=== PATIENT | male | born 1935 | race Caucasian/White ===

== ENCOUNTER 2016-06-08 09:03 | Emergency (ER) | payer OTHER ==
[2016-06-08 09:11] VITALS: BP 145/72; PULSE 92; TEMP 98.1; BMI 31.3
[2016-06-08] MEDS ORDERED: COLCHICINE 0.6 MG TABLET (FP) PO ONE ×2 (10:09→11:16)
[2016-06-08] MEDS ORDERED: COLCHICINE 0.6 MG TABLET (FP) ONE ×3 (10:18→11:32)
[2016-06-08] MEDS ORDERED: OXYCODONE/APAP 5/325MG COMBO TABLET ONE (10:21)
[2016-06-08] MEDS ORDERED: OXYCODONE/APAP 5/325MG COMBO TABLET PO ONE (10:24)
[2016-06-08 10:34] LABS: BASOPHIL 0.5 % (0-2.0); EOSINOPHIL 2.1 % (0-4.5); MCH 30.4 pg (25.7-33.7); MCHC 33.4 g/dl (32.0-35.9); MEAN PLT VOLUME 8.6 fl (7.5-11.1); NEUTROPHILS 80.8 % (42.8-82.8); PLATELET COUNT 173 K/MM3 (134-434); RDW 14.9 % (11.9-15.9)
--- NOTE | 2016-06-08 10:47 | PDOC ---
History of Present Illness - General Chief Complaint: Pain Stated Complaint: LT FOOT PAIN Time Seen by Provider: 06/08/16 09:30 History Source: Patient, Spouse - History of Present Illness Occurred: reports: other Severity: Yes: severe Lower Extremity Pain Location: left: foot, ankle Past History - Past Medical History Allergies/Adverse Reactions: Allergies Allergy/AdvReac Type Severity Reaction Status Date / Time erythromycin base Allergy Severe Difficulty Verified 06/08/16 09:10 Breathing triamcinolone Allergy Intermediate Rash Verified 06/08/16 09:10 naproxen [From Naprosyn] Allergy Verified 06/08/16 09:10 Home Medications: Ambulatory Orders Allopurinol [Zyloprim -] 100 mg PO DAILY 05/20/14 Levothyroxine [Synthroid -] 50 mcg PO DAILY 05/20/14 Quinapril HCl [Accupril] 40 mg PO DAILY 05/20/14 Rosuvastatin Calcium [Crestor] 20 mg PO DAILY 05/20/14 Silodosin [Rapaflo] 80 mg PO DAILY 05/20/14 Aspirin [ASA -] 0.5 tab PO DAILY 07/22/14 Beta-Carotene(A) W-C and E/Min [Ocuvite (Nf) -] 1 tab PO DAILY 07/22/14 Multivitamins [Tab-A-Vit -] 1 tab PO DAILY 07/22/14 Ondansetron [Zofran Odt -] 4 mg SL TID #6 od.tablet 12/17/14 Acetaminophen [Tylenol] 650 mg PO Q6H #30 tablet 06/08/16 Oxycodone HCl/Acetaminophen [Percocet 5-325 mg Tablet] 1 tab PO Q4H #20 tablet MDD 4 06/08/16 HTN: Yes Hypercholesterolemia: Yes Suicide Attempt (Hx): No Thyroid Disease: Yes (HYPO) - Surgical History Abdominal Surgery: Yes Appendectomy: Yes - Immunization History Immunization Up to Date: Yes - Psycho/Social/Smoking Cessation Hx Anxiety: No Suicidal Ideation: No Smoking History: Never smoked Have you smoked in the past 12 months: No If you are a former smoker, when did you quit?: 1974 Hx Alcohol Use: No Drug/Substance Use Hx: No Substance Use Type: None Review of Systems - Review of Systems Constitutional: No: Chills, Fever, Malaise Musculoskeletal: Yes: Joint Pain, Joint Swelling *Physical Exam - Vital Signs Last Vital Signs Temp Pulse Resp BP Pulse Ox 98.1 F 92 H 20 145/72 97 06/08/16 09:06 06/08/16 09:06 06/08/16 09:06 06/08/16 09:06 06/08/16 09:06 - Physical Exam General Appearance: Yes: Appropriately Dressed, Mild Distress HEENT: positive: Normal Voice Neck: positive: Supple Respiratory/Chest: negative: Respiratory Distress Extremity: positive: Swelling (L foot ankle w/ moderate swelling w/ minimal ertyhema w/ increased warmth to lateral L foot, sig ttp to foot difusely, pedal pulses intact) Integumentary: positive: Dry, Warm Neurologic: positive: Fully Oriented, Alert, Normal Mood/Affect ED Treatment Course - LABORATORY CBC & Chemistry Diagram: 06/08/16 10:15 - ADDITIONAL ORDERS Additional order review: 06/08/16 10:15 RBC 4.54 MCV 91.0 MCHC 33.4 RDW 14.9 MPV 8.6 Neutrophils % 80.8 Lymphocytes % 9.6 D Monocytes % 7.0 Eosinophils % 2.1 D Basophils % 0.5 - RADIOLOGY Radiology Studies Ordered: Category Date Time Status FOOT-LEFT [RAD] Stat Radiology 06/08/16 10:25 Ordered - Medications Given in the ED: ED Medications Discontinued Medications Generic Name Dose Route Start Last Admin Trade Name Freq PRN Reason Stop Dose Admin Colchicine 1.2 mg 06/08/16 10:09 06/08/16 10:25 Colcrys - PO 06/08/16 10:10 1.2 mg ONCE ONE Administration Oxycodone/Acetaminophen 1 combo 06/08/16 10:24 06/08/16 10:25 Percocet 5/325 - PO 06/08/16 10:25 1 combo ONCE ONE Administration Medical Decision Making - Medical Decision Making 06/08/16 10:51 81 yo M, h/o HLD, hypothyroid, gout, here w/ L foot/ankle pain and swelling x 5 days. Able to ambulate but painful. No f/c or malaise. Denies any trauma. States he had gout to b/l ankle many years ago, not currently on meds for same See exam Atraumatic L foot/ankle pain/swelling/erythema Gout vs cellulitis vs other non-specific inflammatory pathology, i.e arthritis, low suspicion for septic joint at this time -pain control (allergic to NSAIDs) -colchicine -XR -labs -reassess 06/08/16 11:21 Mild elevation in inflammatory markers and uric acid. XR neg for acute pathology. Pt improved w/ meds in ED. Will discharge w/ rx for small amount of percocet as allergic to NSAIDs and unlikely to benefit from colchicine given duration of sxs. Will hold off on abx given low suspicion of infection at this. Pt to follow up with PMD this week. Reasons to return d/w pt. Given cane and ALISHA wrap at discharge *DC/Admit/Observation/Transfer Diagnosis at time of Disposition: Foot pain Qualifiers: Laterality: left Qualified Code(s): M79.672 - Pain in left foot - Discharge Dispostion Disposition: HOME Condition at time of disposition: Improved - Prescriptions Prescriptions: Oxycodone HCl/Acetaminophen [Percocet 5-325 mg Tablet] 1 tab PO Q4H #20 tablet MDD 4 Acetaminophen [Tylenol] 650 mg PO Q6H #30 tablet - Patient Instructions Printed Discharge Instructions: Gout Additional Instructions: Please take medications as directed and follow with your PMD next week. Return for worsening of symptoms
[2016-06-08 11:01] LABS: C-REACTIVE PROTEIN 2.3 MG/DL (0.00-0.3); URIC ACID 8.9 mg/dL (2.6-7.2)
== END 2016-06-08 11:44 | disposition home or self-care (01) ==
LOC: JERFT 09:03
DX: M10.9 Gout, unspecified (principal); I10 Essential (primary) hypertension; E78.00 Pure hypercholesterolemia, unspecified; E03.9 Hypothyroidism, unspecified
CPT/HCPCS: 36415; 73630-TC-LT; 84550; 85025; 85651; 86140; 99281-25

== ENCOUNTER 2018-02-11 18:46 | Emergency (ER) | payer OTHER ==
--- NOTE | 2018-02-11 19:07 | PDOC ---
Rapid Medical Evaluation Chief Complaint: Headache Time Seen by Provider: 02/11/18 19:03 Medical Evaluation: Allergies Allergy/AdvReac Type Severity Reaction Status Date / Time erythromycin base Allergy Severe Difficulty Verified 02/11/18 19:01 Breathing triamcinolone Allergy Intermediate Rash Verified 02/11/18 19:01 naproxen [From Naprosyn] Allergy Verified 02/11/18 19:01 02/11/18 19:03 CC: FRIEND/Insomnia HPI: Pt is an 83 YO male who states that he has had his license pulled due to diagnosis of macular degeneration and over the past 1 day he has had left sided FRIEND. Pt according to is anxious. Pt denies this being the worst FRIEND of his life and denies a thunderclap sensation prior to its initiation. I have performed a brief in- person evaluation of this patient. Pertinent Physical Findings: Skin: Clear Lungs: Clear Heart: RRR Neuro: Alert, smile is symmetric. Psych: Appropriate affect The patient will proceed to: Main ED for further evaluation. Discharge Disposition - Diagnosis Headache Qualifiers: Headache type: unspecified Headache chronicity pattern: acute headache Intractability: not intractable Qualified Code(s): R51 - Headache - Referrals - Patient Instructions - Post Discharge Activity
[2018-02-11 19:09] VITALS: BP 116/58; PULSE 62; TEMP 98.1; BMI 29.8
[2018-02-11] MEDS ORDERED: ACETAMINOPHEN 325 MG TABLET (FP) PO ONE (20:01)
--- NOTE | 2018-02-11 20:26 | PDOC ---
Attending Attestation - Resident Resident Name: Mino Lei - ED Attending Attestation I have performed the following: I have examined & evaluated the patient, The case was reviewed & discussed with the resident, I agree w/resident's findings & plan, Exceptions are as noted - Medical Decision Making 02/11/18 20:26 I, Dr. Myra Barnhart, DO, attest that this document has been prepared under my direction and personally reviewed by me in its entirety. I further attest, that it accurately reflects all work, treatment, procedures and medical decision -making performed by me. 02/11/18 21:43 a/p: 83yo male with 3 days of duarte -recently dx with worsening macular degeneration with an appt thursday with the yard specialist -recently had his drivers license taken -has not tried meds at home -no trauma -no home meds tried at home -will send labs, head ct -will medicate with tylenol -neuro intact 02/11/18 21:[address] without acute findings duarte resolved with tylenol labs reviewed - cr at baseline stable for d/c to home <Myra Barnhart - Last Filed: 02/11/18 21:43> - HPI HPI: 02/11/18 21:51 The patient is a 83 year old male with a significant past medical history of HTN , hypothyroid, and GOUT who presents to the ED with complaints of a headache for 2 days. Patient reports a non radiating left sided frontal headache that waxes and wanes. Patient was recently diagnosed with macular degeneration in his left eye and is following up with ophthalmology. Denies fever or chills. Denies dizziness. Denies chest pain or shortness of breath. Denies any other symptoms. Documentation prepared by Anselmo Rowe, acting as diploma medical assistant for Myra Barnhart DO - Physicial Exam PE: 02/11/18 21:51 Constitutional: Awake, alert, oriented. No acute distress. Head: Normocephalic. Atraumatic Eyes: PERRL. EOMI. Conjunctivae are not pale. ENT: Mucous membranes are moist and intact. Posterior pharynx without exudates or erythema. Uvula midline. Neck: Supple. Full ROM. No lymphadenopathy. Cardiovascular: + Systolic ejection murmur Regular rate. Regular rhythm. Distal pulses are 2+ and symmetric. Pulmonary/Chest: No evidence of respiratory distress. Clear to auscultation bilaterally No wheezing, rales or rhonchi. Abdominal: + Obese abdomen. Soft. There is no tenderness. No rebound, guarding or rigidity. No organomegaly. No palpable masses. Good bowel sounds. Back: No CVA tenderness. Musculoskeletal: No edema. No cyanosis. No clubbing. Full range of motion in all extremities. Nocalf tenderness. Radial/pedal pulses are intact and 2+ bilaterally Skin: + First degree burn to umbilicus that is healing. Skin is warm and dry. No petechiae. No purpura. Neurological: Alert and oriented to person, place, and time. Cranial nerves II -XII are grossly intact. Normal speech. Strength is grossly symmetric. No sensory deficits. Psychiatric: Good eye contact. Normal interaction, affect and behavior. <Anselmo Rowe - Last Filed: 02/11/18 21:52>
[2018-02-11 20:52] LABS: HEMATOCRIT 39.6 % (35.4-49); HEMOGLOBIN 13.2 GM/dL (11.7-16.9); MCHC 33.4 g/dl (32.0-35.9); MEAN CELL VOLUME 92.8 fl (80-96); MEAN PLT VOLUME 8.6 fl (7.5-11.1); PLATELET COUNT 176 K/MM3 (134-434); RBC 4.27 M/mm3 (4.00-5.60); RDW 15.9 % (11.9-15.9)
[2018-02-11] MEDS ORDERED: METOCLOPRAMIDE HCL 10 MG TABLET (FP) PO ONE (20:54)
--- NOTE | 2018-02-11 20:54 | PDOC ---
History of Present Illness - General Chief Complaint: Headache Stated Complaint: HEADACHE/EYE PROBLEM Time Seen by Provider: 02/11/18 19:03 History Source: Patient - History of Present Illness Initial Comments: The patient is an 83M w/ a history of HTN, hypothyroid, and gout who presents for evaluation of a FRIEND. The patient reports that the FRIEND is L/frontal, had gradual onset 2d ago, waxes/wanes, does not radiate, and is not associated with any symptoms that he noticed. The patient reports that he was diagnosed with macular degeneration in his left eye and has an drafting technician appointment scheduled for Thursday for intravitreal injection. He reports that he may have had a FRIEND like this before. He has not tried taking anything for the pain. He denies a history of CO or stroke. He denies recent fever/chills, dizziness, chest pain, SOB, N/V/C/D, changes in sensation, or weakness 02/11/18 20:55 Past History - Past Medical History Allergies/Adverse Reactions: Allergies Allergy/AdvReac Type Severity Reaction Status Date / Time erythromycin base Allergy Severe Difficulty Verified 02/11/18 19:01 Breathing triamcinolone Allergy Intermediate Rash Verified 02/11/18 19:01 naproxen [From Naprosyn] Allergy Verified 02/11/18 19:01 Home Medications: Ambulatory Orders Allopurinol [Zyloprim -] 100 mg PO DAILY 05/20/14 Levothyroxine [Synthroid -] 50 mcg PO DAILY 05/20/14 Quinapril HCl [Accupril] 40 mg PO DAILY 05/20/14 Rosuvastatin Calcium [Crestor] 20 mg PO DAILY 05/20/14 Silodosin [Rapaflo] 80 mg PO DAILY 05/20/14 Aspirin [ASA -] 0.5 tab PO DAILY 07/22/14 Beta-Carotene(A) W-C and E/Min [Ocuvite (Nf) -] 1 tab PO DAILY 07/22/14 Multivitamins [Tab-A-Vit -] 1 tab PO DAILY 07/22/14 Ondansetron [Zofran Odt -] 4 mg SL TID #6 od.tablet 12/17/14 Acetaminophen [Tylenol] 650 mg PO Q6H #30 tablet 06/08/16 Oxycodone HCl/Acetaminophen [Percocet 5-325 mg Tablet] 1 tab PO Q4H #20 tablet MDD 4 06/08/16 COPD: No HTN: Yes Hypercholesterolemia: Yes Thyroid Disease: Yes (HYPO) - Surgical History Abdominal Surgery: Yes Appendectomy: Yes - Immunization History Immunization Up to Date: Yes - Suicide/Smoking/Psychosocial Hx Smoking History: Never smoked Have you smoked in the past 12 months: No If you are a former smoker, when did you quit?: 1975 Hx Alcohol Use: No Drug/Substance Use Hx: No Substance Use Type: None Review of Systems - Review of Systems Able to Perform ROS?: Yes Comments:: GENERAL/CONSTITUTIONAL: No fever or chills. No weakness HEAD, EYES, EARS, NOSE AND THROAT: No acute change in vision; little vision in R eye, nearly blind in L eye; No ear pain or discharge. No sore throat CARDIOVASCULAR: No chest pain or shortness of breath RESPIRATORY: No cough, wheezing, or hemoptysis GASTROINTESTINAL: No nausea, vomiting, diarrhea or constipation GENITOURINARY: No dysuria, frequency, or change in urination MUSCULOSKELETAL: No joint or muscle swelling or pain. No neck or back pain SKIN: No rash NEUROLOGIC: No vertigo, loss of consciousness, or change in strength/sensation ENDOCRINE: No increased thirst. No abnormal weight change HEMATOLOGIC/LYMPHATIC: No anemia, easy bleeding, or history of blood clots ALLERGIC/IMMUNOLOGIC: No hives or skin allergy 02/11/18 20:59 Is the patient limited Yoruba proficient: No *Physical Exam - Vital Signs Last Vital Signs Temp Pulse Resp BP Pulse Ox 98.1 F 62 18 116/58 L 98 02/11/18 19:02 02/11/18 19:02 02/11/18 19:02 02/11/18 19:02 02/11/18 19:02 - Physical Exam Comments: GENERAL: Awake, alert, and fully oriented, in no acute distress HEAD: No signs of trauma, normocephalic, atraumatic EYES: OS: 20/200 OD: 20/100; PERRL, EOMI, sclera anicteric, conjunctiva clear ENT: Hearing grossly normal, nares patent, oropharynx clear without exudates. Moist mucosa NECK: Normal ROM, supple, no lymphadenopathy LUNGS: No distress, speaks full sentences, clear to auscultation bilaterally HEART:Regular rate and rhythm, systolic murmur appreciated, peripheral pulses normal and equal bilaterally ABDOMEN: Soft, nontender, normoactive bowel sounds. No guarding, no rebound. 2cm x 4cm supraumbilical mixed 1st and 2nd degree burn (that occurred 5d ago) that appears to be not infected EXTREMITIES : Normal inspection, Normal range of motion, no edema. No clubbing or cyanosis NEUROLOGICAL: Cranial nerves II through XII grossly intact. Normal speech, no focal sensorimotor deficits SKIN: Warm, Dry, normal turgor, no rashes or lesions noted 02/11/18 21:00 ED Treatment Course - LABORATORY CBC & Chemistry Diagram: 02/11/18 20:39 02/11/18 20:39 Medical Decision Making - Medical Decision Making The patient is an 83M w/ a history of HTN, hypothyroidism, and gout who presents for evaluation of 2d of FRIEND ED Course CMP, CBC CT head w/o Tylenol 975mg PO once 02/11/18 21:08 No leukocytosis lytes wnl other labs at baseline 02/11/18 21:13 The patient reports symptomatic improvement of his FRIEND CT head w/o evidence of acute bleed or acute pathology Referral given for neurology Counseled patient for OTC Tylenol as directed for pain Return precautions given including nausea/vomiting, fevers, worsening/non- abating symptoms, or any new/concerning symptoms Plan for D/C w/ PCP and neurology follow up Patient is in agreement and verbalized understanding of the plan Dispo: Home 02/11/18 21:48 *DC/Admit/Observation/Transfer Diagnosis at time of Disposition: Headache Qualifiers: Headache type: unspecified Headache chronicity pattern: acute headache Intractability: not intractable Qualified Code(s): R51 - Headache - Discharge Dispostion Disposition: HOME Condition at time of disposition: Stable Decision to Admit order: No - Referrals Referrals: Ruben Reyez MD [Primary Care Provider] - Panchito Garcia DO [Staff Physician] - - Patient Instructions Printed Discharge Instructions: DI for Headache Additional Instructions: You were seen in the Emergency Department for evaluation of a headache. You were evaluated and found not to have an acute bleed on CT scan. Please review the handouts provided at discharge. Please follow up with a neurologist (a referral is in your discharge paperwork). Return to the Emergency Department if you develop fevers, nausea/vomiting, worsening headache, or any new/concerning symptoms - Post Discharge Activity
[2018-02-11 21:17] LABS: ALK PHOS 95 U/L (45-117); ANION GAP 4 MMOL/L (8-16); BILIRUBIN,TOTAL 0.4 mg/dL (0.2-1); BLOOD UREA NITROGEN 59 mg/dL (7-18); CALCIUM 9.4 mg/dL (8.5-10.1); CHLORIDE 111 mmol/L (98-107); CO2 23 mmol/L (21-32); CREATININE 2.2 mg/dL (0.55-1.3); GLUCOSE,RANDOM 102 mg/dL (74-106); POTASSIUM 5.3 mmol/L (3.5-5.1); SGOT/AST 17 U/L (15-37); SGPT/ALT 45 U/L (13-61); SODIUM 138 mmol/L (136-145); TOT PROT 7.6 g/dl (6.4-8.2)
== END 2018-02-11 21:48 | disposition home or self-care (01) ==
LOC: JER 18:46
DX: R51 Headache (principal); I10 Essential (primary) hypertension; E03.9 Hypothyroidism, unspecified; M10.9 Gout, unspecified; H35.30 Unspecified macular degeneration
CPT/HCPCS: 36415; 70450-TC; 80053; 85027; 99281-25

== ENCOUNTER 2018-09-23 18:12 | Observation (INO) | payer OTHER ==
--- NOTE | 2018-09-23 18:27 | PDOC ---
Rapid Medical Evaluation Chief Complaint: Lightheaded Medical Evaluation: Allergies Allergy/AdvReac Type Severity Reaction Status Date / Time erythromycin base Allergy Severe Difficulty Verified 02/11/18 19:01 Breathing triamcinolone Allergy Intermediate Rash Verified 02/11/18 19:01 naproxen [From Naprosyn] Allergy Verified 02/11/18 19:01 I have performed a brief in-person evaluation of this patient. The patient presents with a chief complaint of: Was feeling lightheaded while on treadmill today; per , patient feels like this often; is pending to get heart surgery for valvular disorder; patient had TMST done 09/17/18 which was normal; denies cp, sob Pertinent physical exam findings: In NAD I have ordered the following: Labs, EKG The patient will proceed to the ED for further evaluation. 09/23/18 18:25 Discharge Disposition - Discharge Dispostion Condition at time of disposition: Stable - Referrals Referrals: Ruben Reyez MD [Primary Care Provider] - - Patient Instructions - Post Discharge Activity
[2018-09-23 18:28] VITALS: BMI 29.8
--- NOTE | 2018-09-23 19:15 | PDOC ---
History of Present Illness - General Chief Complaint: Lightheaded Stated Complaint: Weakness Time Seen by Provider: 09/23/18 18:25 - History of Present Illness Initial Comments: 09/23/18 19:14 83 year old man with a history of HTN, hypothyroid, gout, aortic valve disorder who presents with episode of lightheadedness, weakness and heaviness that occurred after walking on the treadmill for 30 min for the first time in 1 week. The patient had a stress test last week with his marine drafter Dr. Antonio who found that he became hypotensive and would require surgical repair of his aortic valve, but the patient and his wanted to wait to get a second opinion. The patient reports that prior to his stress test he would walk on the treadmill regularly and and today walked at the same speed and incline as normal for him. He denies any chest pain, nausea, diaphoresis, shortness of breath, abdominal pain, recent illness, fever, or recent travel. : Michael [phone] would like to be notified when patient moved. Past History - Past Medical History Allergies/Adverse Reactions: Allergies Allergy/AdvReac Type Severity Reaction Status Date / Time erythromycin base Allergy Severe Difficulty Verified 02/11/18 19:01 Breathing triamcinolone Allergy Intermediate Rash Verified 02/11/18 19:01 naproxen [From Naprosyn] Allergy Verified 02/11/18 19:01 Home Medications: Ambulatory Orders Allopurinol [Zyloprim -] 100 mg PO DAILY 05/20/14 Levothyroxine [Synthroid -] 50 mcg PO DAILY 05/20/14 Quinapril HCl [Accupril] 40 mg PO DAILY 05/20/14 Rosuvastatin Calcium [Crestor] 20 mg PO DAILY 05/20/14 Silodosin [Rapaflo] 80 mg PO DAILY 05/20/14 Beta-Carotene(A) W-C and E/Min [Ocuvite (Nf) -] 1 tab PO DAILY 07/22/14 Multivitamins [Tab-A-Vit -] 1 tab PO DAILY 07/22/14 Ondansetron [Zofran Odt -] 4 mg SL TID #6 od.tablet 12/17/14 COPD: No HTN: Yes Hypercholesterolemia: Yes Thyroid Disease: Yes (HYPO) - Surgical History Abdominal Surgery: Yes Appendectomy: Yes - Immunization History Immunization Up to Date: Yes - Suicide/Smoking/Psychosocial Hx Smoking History: Never smoked Have you smoked in the past 12 months: No If you are a former smoker, when did you quit?: 1974 Information on smoking cessation initiated: No Hx Alcohol Use: No Drug/Substance Use Hx: No Substance Use Type: None Review of Systems - Review of Systems Comments:: 09/23/18 19:15 GENERAL/CONSTITUTIONAL: No fever or chills. No weakness. HEAD, EYES, EARS, NOSE AND THROAT: No change in vision. No ear pain or discharge. No sore throat. CARDIOVASCULAR: No chest pain or shortness of breath RESPIRATORY: No cough, wheezing, or hemoptysis. GASTROINTESTINAL: No nausea, vomiting, diarrhea or constipation. GENITOURINARY: No dysuria, frequency, or change in urination. MUSCULOSKELETAL: No joint or muscle swelling or pain. No neck or back pain. SKIN: No rash NEUROLOGIC: No headache, vertigo, loss of consciousness, or change in strength/ sensation. ENDOCRINE: No increased thirst. No abnormal weight change HEMATOLOGIC/LYMPHATIC: No anemia, easy bleeding, or history of blood clots. ALLERGIC/IMMUNOLOGIC: No hives or skin allergy. *Physical Exam - Vital Signs Last Vital Signs Temp Pulse Resp BP Pulse Ox 97.8 F 87 16 120/66 97 09/23/18 18:24 09/23/18 18:24 09/23/18 18:24 09/23/18 18:24 09/23/18 18:24 - Physical Exam Comments: 09/23/18 19:15 GENERAL: Awake, alert, and fully oriented, in no acute distress HEAD: No signs of trauma, normocephalic, atraumatic EYES: EOMI, sclera anicteric, conjunctiva clear ENT: Auricles normal inspection, hearing grossly normal, nares patent, oropharynx clear without exudates. Moist mucosa NECK: Normal ROM, supple LUNGS: No distress, speaks full sentences, clear to auscultation bilaterally HEART: Regular rate and rhythm, normal S1 and S2, + harsh holosystolic murmurs, rubs or gallops, peripheral pulses normal and equal bilaterally. ABDOMEN: Soft, nontender, normoactive bowel sounds. No guarding, no rebound. No masses EXTREMITIES : Normal inspection, Normal range of motion, no edema. No clubbing or cyanosis. NEUROLOGICAL: Cranial nerves II through XII grossly intact. Normal speech, normal gait, no focal sensorimotor deficits SKIN: Warm, Dry, normal turgor, no rashes or lesions noted ED Treatment Course - LABORATORY CBC & Chemistry Diagram: 09/23/18 18:28 09/23/18 18:28 Medical Decision Making - Medical Decision Making 09/23/18 19:34 83 year old man with a history of HTN, hypothyroid, gout, aortic valve disorder who presents with episode of lightheadedness, weakness and heaviness that occurred after walking on the treadmill for 30 min for the first time in 1 week. The patient had a stress test last week with his marine drafter Dr. Antonio who found that he became hypotensive and would require surgical repair of his aortic valve, but the patient and his wanted to wait to get a second opinion. The patient reports that prior to his stress test he would walk on the treadmill regularly and and today walked at the same speed and incline as normal for him. He denies any chest pain, nausea, diaphoresis, shortness of breath, abdominal pain, recent illness, fever, or recent travel. ED Course: likely patient with presyncope 2/2 aortic stenosis r.o electrolyte vs infectious vs acs cbc, cmp, trop, ekg, cxr, tsh, ua will call Dr. Antonio, cardiology likely patient will need admission 09/23/18 20:[address] Tucker covering for Dr. Antonio, discussed, agrees with plan for admisison 09/23/18 21:36 troponin negative cxr: mild cardiomegaly patient reassessed, stable bp, hr, o2 reassuring plan for admission as patient will need cardiology evaluation and echo 09/23/18 22:20 Discussed case with resident Dr. Perez who is at bedside evaluating patient. *DC/Admit/Observation/Transfer Diagnosis at time of Disposition: Pre-syncope - Discharge Dispostion Condition at time of disposition: Stable Decision to Admit order: Yes - Referrals Referrals: Ruben Reyez MD [Primary Care Provider] - - Patient Instructions - Post Discharge Activity
--- NOTE | 2018-09-23 20:15 | PDOC ---
Documentation entered by Ella Baires SCRIBE, acting as scribe for Vinnie Alicia MD. Vinnie Alicia MD: This documentation has been prepared by the Viry bustamante Daisy, SCRIBE, under my direction and personally reviewed by me in its entirety. I confirm that the documentation accurately reflects all work, treatment, procedures, and medical decision making performed by me. Attending Attestation - Resident Resident Name: Cherelle Sandy - ED Attending Attestation I have performed the following: I have examined & evaluated the patient, The case was reviewed & discussed with the resident, I agree w/resident's findings & plan - HPI HPI: 09/23/18 19:53 The patient is a 83YOM with a PMH of HTN, hypothyroidism, gout, aortic valve disorder who presents to the ER for evaluation of lightheadedness and weakness in the setting of walking on a treadmill. Patient was seen by cardiology, Dr. Antonio, recently and was told he will need surgical repair of his aortic valve. Denies chest pain, nausea, diaphoresis, shortness of breath, abdominal pain, or fever. Allergies: erythromycin base, triamcinolone, naproxen - Physicial Exam PE: 09/24/18 07:23 Agree with exam as documented by resident - Medical Decision Making 09/24/18 07:23 Consider symptomatic f/u labs, ekg, cxr admit med tele for observation
[2018-09-23 20:17] LABS: BASO % 1.1 % (0-2.0); EOS % 4.2 % (0-4.5); HEMATOCRIT 38.8 % (35.4-49); HEMOGLOBIN 12.8 GM/dL (11.7-16.9); LYMPH % 25.4 % (8-40); MEAN CELL VOLUME 94.1 fl (80-96); MEAN PLT VOLUME 9.1 fl (7.5-11.1); MONO % 7.9 % (3.8-10.2); NEUT % 61.4 % (42.8-82.8); PLATELET COUNT 169 K/MM3 (134-434); RBC 4.12 M/mm3 (4.00-5.60); RDW 14.9 % (11.9-15.9); WHITE BLOOD COUNT 6.3 K/mm3 (4.0-10.0)
[2018-09-23 20:50] LABS: CALCIUM 8.7 mg/dL (8.5-10.1); CREATININE 1.9 mg/dL (0.55-1.3); POTASSIUM 4.6 mmol/L (3.5-5.1)
[2018-09-23 20:58] LABS: INR 1.03 (0.83-1.09); PROTHROMBIN TIME (PATIENT) 12.2 SEC (9.7-13.0)
[2018-09-23 21:00] LABS: ACTIVATED PTT 32.7 SECONDS (25.2-36.5)
--- NOTE | 2018-09-23 22:40 | PN ---
Teaching Attending Note Name of Resident: Rylan Perez ATTENDING PHYSICIAN STATEMENT I saw and evaluated the patient. I reviewed the resident's note and discussed the case with the resident. I agree with the resident's findings and plan as documented. SUBJECTIVE: Seen and examined; please refer to resident note for further historical information. Briefly, this is a 83 y/o male presenting to the ER with a CC of feeling 'strange' (actually denies lightheadedness) after ambulating on treadmill. 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 Stress test showed no ischemic ST-T changes during exercise with target HR achieved. Currently asx. 10 sys ROS done and negative aside from HPI PMH, PSH, FH, SH reviewed Home Medications Medication Instructions Recorded Allopurinol [Zyloprim -] 100 mg PO DAILY 05/20/14 Levothyroxine [Synthroid -] 50 mcg PO DAILY 05/20/14 Quinapril HCl [Accupril] 40 mg PO DAILY 05/20/14 Rosuvastatin Calcium [Crestor] 10 mg PO DAILY 05/20/14 Silodosin [Rapaflo] 8 mg PO DAILY 05/20/14 Multivitamins [Tab-A-Vit -] 1 tab PO DAILY 07/22/14 OBJECTIVE: VS, labs, imaging reviewed NAD, AAO, resting comfortably in bed NC AT EOMI PERRLA RRR s1/2 no mgr, systolic murmur lsb Lungs CTAB, w/ sym exp NT ND +BS CN2-12 wnl, no fnd Normal mood, appropriate behavior EKG reviewed; similar to prior study Echo pending CXR reviewed; likely atelectesis with borderline cardiomegaly Stress test reviewed; shows ASSESSMENT AND PLAN: Patient presents to the ER with presyncope in the setting of likely needing AV repair; cardiology is aware. Pending echo. 1) Aortic Stenosis -Was told he needed procedure by his CV (TAVR?); what happened on the treadmill could be construed as symptomatic. He did not syncopize, however, and has no current sx. -Will check echo to further assess valve and will consult his CV for further recs regarding the overall managemetn of his valvulopathy. -Avoid hypotension
[2018-09-23 23:08] LABS: URINE APPEARANCE CLEAR; URINE BACTERIA 1.4 /hpf (NEGATIVE); URINE BILIRUBIN NEGATIVE (NEGATIVE); URINE CASTS 3 /lpf (0-8); URINE COLOR YELLOW; URINE GLUCOSE (UA) NEGATIVE (NEGATIVE); URINE KETONE NEGATIVE (NEGATIVE); URINE LEUK ESTERASE NEGATIVE (NEGATIVE); URINE NITRITE NEGATIVE (NEGATIVE); URINE PROTEIN 1+ (NEGATIVE); URINE RBC 1 /hpf (0-4); URINE UROBILINOGEN 0.2 mg/dL (0.2-1.0); URINE WBC 1 /hpf (0-5)
--- NOTE | 2018-09-23 23:12 | HP ---
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 Patient said he felt weakness, headache and nonspecific heaviness that occurred while he was sitting down 5 minutes after his 30 minute treadmill workout. Patient says he's been concerned and stressed about his recent aortic valve stenosis diagnosis that requires TAVR, and was thinking about it during his workout. He says he feels well hydrated and drinks water throughout the day. He had a stress test with Dr. Antonio, who recommended surgery (likely TAVR). Patient said he needed a second a opinion. Patient admits to being very stressed out about the diagnosis. Patient is currently asymptomatic and denies symptoms. He denies SOB, lightheadedness, chest pain, nausea, vomiting, diarrhea, fevers, chills. ER course was notable for: (1) EKG unchanged from previous Recent Travel: denies PAST MEDICAL HISTORY: HTN, gout, hypothyroidism PAST SURGICAL HISTORY: appendectomy Social History: Smoking: quit 40 years ago Alcohol: denies Drugs: denies Family History: Allergies erythromycin base Allergy (Severe, Verified 02/11/18 19:01) Difficulty Breathing triamcinolone Allergy (Intermediate, Verified 02/11/18 19:01) Rash naproxen [From Naprosyn] Allergy (Verified 02/11/18 19:01) HOME MEDICATIONS: Home Medications Medication Instructions Recorded Allopurinol [Zyloprim -] 100 mg PO DAILY 05/20/14 Levothyroxine [Synthroid -] 50 mcg PO DAILY 05/20/14 Quinapril HCl [Accupril] 40 mg PO DAILY 05/20/14 Rosuvastatin Calcium [Crestor] 20 mg PO DAILY 05/20/14 Silodosin [Rapaflo] 80 mg PO DAILY 05/20/14 Beta-Carotene(A) W-C and E/Min 1 tab PO DAILY 07/22/14 [Ocuvite (Nf) -] Multivitamins [Tab-A-Vit -] 1 tab PO DAILY 07/22/14 Ondansetron [Zofran Odt -] 4 mg SL TID #6 od.tablet 12/17/14 REVIEW OF SYSTEMS CONSTITUTIONAL: generalized weakness Absent: fever, chills, diaphoresis, loss of appetite, weight change HEENT: Absent: rhinorrhea, nasal congestion, throat pain, throat swelling, difficulty swallowing, mouth swelling, ear pain, eye pain, visual changes CARDIOVASCULAR: Absent: chest pain, syncope, palpitations, irregular heart rate, lightheadedness , peripheral edema RESPIRATORY: Absent: cough, shortness of breath, dyspnea with exertion, orthopnea, wheezing, stridor, hemoptysis GASTROINTESTINAL: Absent: abdominal pain, abdominal distension, nausea, vomiting, diarrhea, constipation, melena, hematochezia GENITOURINARY: Absent: dysuria, frequency, urgency, hesitancy, hematuria, flank pain, genital pain MUSCULOSKELETAL: Absent: myalgia, arthralgia, joint swelling, back pain, neck pain SKIN: Absent: rash, itching, pallor HEMATOLOGIC/IMMUNOLOGIC: Absent: easy bleeding, easy bruising, lymphadenopathy, frequent infections ENDOCRINE: Absent: unexplained weight gain, unexplained weight loss, heat intolerance, cold intolerance NEUROLOGIC: Absent: headache, focal weakness or paresthesias, dizziness, unsteady gait, seizure, mental status changes, bladder or bowel incontinence PSYCHIATRIC: Absent: anxiety, depression, suicidal or homicidal ideation, hallucinations. PHYSICAL EXAMINATION Vital Signs - 24 hr 09/23/18 09/23/18 09/23/18 18:24 21:09 22:17 Temperature 97.8 F Pulse Rate 87 Pulse Rate [ 76 Apical] Respiratory 16 15 Rate Blood Pressure 120/66 Blood Pressure 137/82 [Left Arm] O2 Sat by Pulse 97 97 97 Oximetry (%) GENERAL: Awake, alert, and fully oriented, in no acute distress. HEAD: Normal with no signs of trauma. EYES: Pupils equal, round and reactive to light, extraocular movements intact, sclera anicteric, conjunctiva clear. EARS, NOSE, THROAT: oropharynx clear without exudates. Moist mucous membranes. NECK: Normal range of motion, supple without lymphadenopathy, JVD, or masses. LUNGS: Breath sounds equal, clear to auscultation bilaterally. No wheezes, and no crackles. No accessory muscle use. HEART: Regular rate and rhythm, normal S1 and S2. 2/6 murmur RUSB ABDOMEN: Soft, nontender, not distended, normoactive bowel sounds, no guarding, no rebound, no masses MUSCULOSKELETAL: Normal range of motion at all joints. UPPER EXTREMITIES: 2+ pulses, warm, well-perfused. No cyanosis.No peripheral edema. LOWER EXTREMITIES: 2+ pulses, warm, well-perfused. No calf tenderness. No peripheral edema. NEUROLOGICAL: Cranial nerves II-XII intact. Normal speech. Normal gait. PSYCHIATRIC: Cooperative. Good eye contact. Appropriate mood and affect. SKIN: Warm, dry, normal turgor, no rashes or lesions noted, normal capillary refill. Laboratory Results - last 24 hr 09/23/18 09/23/18 09/23/18 18:28 18:28 18:28 WBC 6.3 RBC 4.12 Hgb 12.8 Hct 38.8 MCV 94.1 MCH 31.0 MCHC 33.0 RDW 14.9 Plt Count 169 MPV 9.1 Absolute Neuts (auto) 3.8 Neutrophils % 61.4 D Lymphocytes % 25.4 D Monocytes % 7.9 Eosinophils % 4.2 D Basophils % 1.1 Nucleated RBC % 0 PT with INR 12.20 INR 1.03 PTT (Actin FS) 32.7 Sodium 139 Potassium 4.6 Chloride 110 H Carbon Dioxide 21 Anion Gap 7 L BUN 47 H Creatinine 1.9 H Est GFR (CKD-EPI)AfAm 37.22 Est GFR (CKD-EPI)NonAf 32.12 Random Glucose 97 Calcium 8.7 Troponin I TSH 2.40 Urine Color Urine Appearance Urine pH Ur Specific [place] Urine Protein Urine Glucose (UA) Urine Ketones Urine Blood Urine Nitrite Urine Bilirubin Urine Urobilinogen Ur Leukocyte Esterase Urine WBC (Auto) Urine RBC (Auto) Urine Casts (Auto) U Epithel Cells (Auto) Urine Bacteria (Auto) 09/23/18 09/23/18 18:29 23:00 WBC RBC Hgb Hct MCV MCH MCHC RDW Plt Count MPV Absolute Neuts (auto) Neutrophils % Lymphocytes % Monocytes % Eosinophils % Basophils % Nucleated RBC % PT with INR INR PTT (Actin FS) Sodium Potassium Chloride Carbon Dioxide Anion Gap BUN Creatinine Est GFR (CKD-EPI)AfAm Est GFR (CKD-EPI)NonAf Random Glucose Calcium Troponin I < 0.02 TSH Urine Color Yellow Urine Appearance Clear Urine pH 5.0 Ur Specific [place] 1.014 Urine Protein 1+ H Urine Glucose (UA) Negative Urine Ketones Negative Urine Blood Negative Urine Nitrite Negative Urine Bilirubin Negative Urine Urobilinogen 0.2 Ur Leukocyte Esterase Negative Urine WBC (Auto) 1 Urine RBC (Auto) 1 Urine Casts (Auto) 3 U Epithel Cells (Auto) 1.0 Urine Bacteria (Auto) 1.4 ASSESSMENT/PLAN: Patient is an 83 yo M with a hx of HTN, aortic valve disease, presenting with weakness, pressure, and a headache after walking on his treadmill. #Weakness/Headache -likely from Anxiety about TAVR diagnosis -tele monitoring -EKG unchanged from previous -trop neg. FU repeat -recent dx of aortic stenosis requiring TAVR -Cards consulted: Dr. Antonio -Orthostatic Negative -cont. home meds #HTN -cont home meds -patient did not take his meds this morning #FEN -no iv fluids -monitor -sodium diet #dvt -hep sq dispo: tele obs Visit type - Emergency Visit Emergency Visit: Yes ED Registration Date: 09/23/18 Care time: The patient presented to the Emergency Department on the above date and was hospitalized for further evaluation of their emergent condition. - New Patient This patient is new to me today: Yes Date on this admission: 09/27/18 - Critical Care Critical Care patient: No
[2018-09-23] MEDS ORDERED: QUINAPRIL HCL 40 MG TABLET (FP) PO SCH (23:49)
[2018-09-24] MEDS ORDERED: QUINAPRIL HCL 20 MG TABLET (FP) PO ONE (00:33)
[2018-09-24] MEDS ORDERED: LEVOTHYROXINE NA 25 MCG TABLET (FP) ONE (05:27)
[2018-09-24] MEDS ORDERED: HEPARIN NA (PORCINE) 5,000 UNITS/ML 1ML VIAL SQ SCH (06:00)
[2018-09-24 06:01] LABS: BASO % 0.9 % (0-2.0); EOS % 4.8 % (0-4.5); HEMATOCRIT 36.5 % (35.4-49); HEMOGLOBIN 12.3 GM/dL (11.7-16.9); MCH 31.2 pg (25.7-33.7); MCHC 33.6 g/dl (32.0-35.9); MEAN CELL VOLUME 92.8 fl (80-96); MEAN PLT VOLUME 8.8 fl (7.5-11.1); MONO % 8.1 % (3.8-10.2); NEUT % 61.2 % (42.8-82.8); PLATELET COUNT 163 K/MM3 (134-434); RBC 3.93 M/mm3 (4.00-5.60); RDW 15.1 % (11.9-15.9); WHITE BLOOD COUNT 5.7 K/mm3 (4.0-10.0)
[2018-09-24] MEDS ORDERED: HEPARIN NA (PORCINE) 5,000 UNITS/ML 1ML VIAL ONE (06:03)
[2018-09-24] MEDS ORDERED: LEVOTHYROXINE NA 50 MCG TABLET (FP) PO SCH (07:00)
[2018-09-24 07:05] LABS: ALBUMIN 3.6 g/dl (3.4-5.0); BILIRUBIN,TOTAL 0.2 mg/dL (0.2-1); CALCIUM 8.7 mg/dL (8.5-10.1); CREATININE 1.9 mg/dL (0.55-1.3); MAGNESIUM 1.9 mg/dL (1.8-2.4); PHOSPHOROUS 3.6 mg/dL (2.5-4.9); POTASSIUM 4.8 mmol/L (3.5-5.1); TOT PROT 6.5 g/dl (6.4-8.2)
[2018-09-24] MEDS ORDERED: TAMSULOSIN HCL 0.4 MG CAP ONE (07:36)
[2018-09-24] MEDS ORDERED: TAMSULOSIN HCL 0.4 MG CAP PO SCH (08:30)
--- NOTE | 2018-09-24 09:02 | CON.CARD ---
Consult Consult Specialty:: Cardiology Referred by:: Dr. Hagen Reason for Consultation:: fatigue - History of Present Illness Chief Complaint: fatigue after exercise History of Present Illness: 83M with BPH, hypothyroidism, severe with recent ETT showing BP drop w/ exercise. Recommended to have TAVR which he is contemplating. Yesterday, after exercise felt tired and fatigued. No chest pain or syncope. No dizziness. Came to ER for evaluation. No fever, chills or cough. No nausea or vomiting No CP or SOB - History Source History Provided By: Patient Limitations to Obtaining History: No Limitations - Past Medical History Cardio/Vascular: Yes: Aortic Stenosis, Other (HTN) Pulmonary: No: Asthma, Bronchitis, Cancer, COPD, O2 Dependent, Pneumonia, Previously Intubated, Pulmonary Embolus, Pulmonary Fibrosis, Sleep Apnea, Other Gastrointestinal: No: Ascites, Cancer, Constipation, Crohn's Disease, Diverticulitis, Diverticulosis, Esophageal Varices, Gastritis, GERD, GI Bleed, Hemorrhoids, Hiatal Hernia, Inflamatory Bowel Disease, Irritable Bowel Disease, Pancreatitis, Peptic Ulcer Disease, Ulcerative Colitis, Other Heme/Onc: No: Anemia, B12 Deficiency, Bleeding Disorder, Cancer, Current Chemotherapy, Current Radiation Therapy, Hemochromatosis, Hypercoaguable State, Myeloproliferative Synd, Sickle Cell Disease, Sickle Cell Trait, Thrombocytopenia, Other Infectious Disease: No: AIDS, C-Diff, Herpes Zoster, HIV, MRSA, STD's, Tuberculosis, VREF, Other Psych: No: Addictions, Anxiety, Bipolar, Depression, Panic, Psychosis, Schizophrenia, Other Endocrine: Yes: Hypothyroidism - Alcohol/Substance Use Hx Alcohol Use: No - Smoking History Smoking history: Never smoked Have you smoked in the past 12 months: No If you are a former smoker, when did you quit?: 1974 - Social History Usual Living Arrangement: With Spouse History of Recent Travel: No Home Medications - Allergies Allergies/Adverse Reactions: Allergies Allergy/AdvReac Type Severity Reaction Status Date / Time erythromycin base Allergy Severe Difficulty Verified 02/11/18 19:01 Breathing triamcinolone Allergy Intermediate Rash Verified 02/11/18 19:01 naproxen [From Naprosyn] Allergy Verified 02/11/18 19:01 - Home Medications Home Medications: Ambulatory Orders Allopurinol [Zyloprim -] 100 mg PO DAILY 05/20/14 Levothyroxine [Synthroid -] 50 mcg PO DAILY 05/20/14 Quinapril HCl [Accupril] 40 mg PO DAILY 05/20/14 Rosuvastatin Calcium [Crestor] 10 mg PO DAILY 05/20/14 Silodosin [Rapaflo] 8 mg PO DAILY 05/20/14 Multivitamins [Tab-A-Vit -] 1 tab PO DAILY 07/22/14 Family Disease History - Family Disease History Family History: Unremarkable Review of Systems Findings/Remarks: see HPI - Review of Systems Constitutional: reports: Weakness Eyes: reports: No Symptoms HENT: reports: No Symptoms Neck: reports: No Symptoms Cardiovascular: reports: No Symptoms Respiratory: reports: No Symptoms Gastrointestinal: reports: No Symptoms Genitourinary: reports: No Symptoms Breasts: reports: No Symptoms Reported Musculoskeletal: reports: No Symptoms Integumentary: reports: No Symptoms Neurological: reports: No Symptoms Endocrine: reports: No Symptoms Hematology/Lymphatic: reports: No Symptoms Psychiatric: reports: No Symptoms - Risk Factors Known Risk Factors: Yes: Hypertension Vital Signs: Vital Signs Temperature 98.3 F 09/24/18 08:19 Pulse Rate 59 L 09/24/18 08:19 Respiratory Rate 18 09/24/18 08:19 Blood Pressure 140/62 09/24/18 08:19 O2 Sat by Pulse Oximetry (%) 97 09/24/18 08:49 Constitutional: Yes: No Distress, Calm Eyes: Yes: Conjunctiva Clear, EOM Intact HENT: Yes: Normocephalic Neck: Yes: Trachea Midline Respiratory: Yes: CTA Bilaterally. No: Wheezes Gastrointestinal: Yes: Soft (NT) Cardiovascular: Yes: Regular Rate and Rhythm JVD: No Carotid Bruit: No Heart Sounds: Yes: S1, S2 Murmur: Yes: Systolic Murmur, Grade 3 (RSB) Edema: No Peripheral Pulses WNL: Yes Neurological: Yes: Alert, Oriented ...Motor Strength: WNL - Other Data Labs, Other Data: CBC, BMP 09/24/18 05:20 09/24/18 05:20 INR, PTT INR 1.03 (0.83-1.09) 09/23/18 18:28 Troponin, BNP 09/23/18 09/24/18 18:29 00:30 Troponin I < 0.02 < 0.02 Troponin, BNP 09/23/18 09/24/18 18:29 00:30 Troponin I < 0.02 < 0.02 Ejection Fraction %: LVEF > or = 40 % Imaging - Results Chest X-ray: Report Reviewed EKG: Image Reviewed (NSR w/ no acute ST changes) Assessment/Plan IMP: 1. Severe , recommended for TAVR 2. Fatigue post exercise- nonspecific: cardiac enzymes negative. 3. CKD REC: 1. Known severe with BP drop w/ exercise. TAVR recommended as outpatient. Current sx of fatigue are nonspecific and not clearly related to . He has not had angina, syncope or CHF From CV standpoint, can be discharged with outpatient f/u and TAVR consult, if he agrees. He said he is interested in [facility] Should be instructed to avoid exercise for now. 2. Work up of CKD/renal insuffiency as per PMD.
--- NOTE | 2018-09-24 09:06 | EKG ---
Test Reason : Blood Pressure : / mmHG Vent. Rate : 080 BPM Atrial Rate : 080 BPM P-R Int : 174 ms QRS Dur : 084 ms QT Int : 402 ms P-R-T Axes : 037 -09 054 degrees QTc Int : 463 ms NORMAL SINUS RHYTHM ABNORMAL ECG WHEN COMPARED WITH ECG OF 17-DEC-2014 04:14, NO SIGNIFICANT CHANGE WAS FOUND Confirmed by KELLY LEDEZMA MD ([id number]) on 09/24/2018 9:06:30 AM Referred By: Confirmed By:KELLY LEDEZMA MD
--- NOTE | 2018-09-24 09:45 | DS ---
Physical Examination Vital Signs: Vital Signs Temperature 36.8 C 09/24/18 08:19 Pulse Rate 59 L 09/24/18 08:19 Respiratory Rate 18 09/24/18 08:19 Blood Pressure 140/62 09/24/18 08:19 O2 Sat by Pulse Oximetry (%) 97 09/24/18 08:49 Constitutional: Yes: Well Nourished, No Distress, Calm Cardiovascular: Yes: Regular Rate and Rhythm. No: Gallop, Murmur, Rub Respiratory: Yes: Regular, CTA Bilaterally. No: Rales, Rhonchi, Wheezes Gastrointestinal: Yes: Normal Bowel Sounds, Soft. No: Distention, Tenderness Extremities: Yes: WNL Edema: No Labs: CBC, BMP 09/24/18 05:20 09/24/18 05:20 Discharge Summary Reason For Visit: PRE SYNCOPE Current Active Problems Pre-syncope (Acute) Hospital Course: Mr Green is a very pleasant 83 year old male who comes in with weakness after exercising. He has a history of severe aortic stenosis and is planning on getting a TAVR after getting a second opinion at the [place]. He was exercising yesterday and felt weak, even though he knows this is a symptom of the aortic stenosis he came in to be evaluated. He was admitted under observation. Case was discussed with cardiology and he was cleared. He is stable for discharge home today. Condition: Stable - Instructions Diet, Activity, Other Instructions: resume previous diet and activity Referrals: Ruben Reyez MD [Primary Care Provider] - Luis Antonio MD [Staff Physician] - Disposition: HOME - Home Medications Comprehensive Discharge Medication List: Ambulatory Orders Allopurinol [Zyloprim -] 100 mg PO DAILY 05/20/14 Levothyroxine [Synthroid -] 50 mcg PO DAILY 05/20/14 Quinapril HCl [Accupril -] 40 mg PO DAILY 05/20/14 Rosuvastatin Calcium [Crestor] 10 mg PO DAILY 05/20/14 Silodosin [Rapaflo] 8 mg PO DAILY 05/20/14 Multivitamins [Multivit ([facility] Formulary)] 1 tab PO DAILY 07/22/14
[2018-09-24] MEDS ORDERED: QUINAPRIL HCL 40 MG TABLET (FP) PO SCH (10:00)
[2018-09-24] MEDS ORDERED: MULTIVITAMINS (DAILY MVI) TABLET (FP) PO SCH (10:00)
[2018-09-24] MEDS ORDERED: PATIENT'S OWN MEDICATION (NON-FORMULARY) (Beta-Carotene(A) W-C And E/Min 1 TAB) PO SCH (10:00)
[2018-09-24] MEDS ORDERED: ALLOPURINOL 100 MG TABLET (FP) PO SCH (10:00)
[2018-09-24 10:14] VITALS: TEMP 97.1
[2018-09-24 11:48] VITALS: BP 134/73; PULSE 76
[2018-09-24] MEDS ORDERED: ROSUVASTATIN CA 20 MG TABLET (FP) PO SCH (22:00)
== END 2018-09-24 11:30 | disposition home or self-care (01) ==
LOC: JER 18:12 → JERBED 22:17
PROVIDERS: ADMIT Internal Medicine; ATTEND Internal Medicine
PROC: 3E013GC Introduction of Other Therapeutic Substance into Subcutaneous Tissue, Percutaneous Approach (ICD-10-PCS; principal; 2018-09-23)
DX: R55 Syncope and collapse (principal); I35.0 Nonrheumatic aortic (valve) stenosis; I10 Essential (primary) hypertension; E78.5 Hyperlipidemia, unspecified; E03.9 Hypothyroidism, unspecified; M10.9 Gout, unspecified; N40.0 Benign prostatic hyperplasia without lower urinary tract symptoms
CPT/HCPCS: 36415; 71045-TC-FY; 80048; 80053; 81003; 83735; 84100; 84443; 84484; 85025; 85610; 85730; 93005; 93010; 96372; 99285-25; G0378; J1644

== ENCOUNTER 2018-11-02 20:53 | Inpatient (IN) | payer OTHER ==
--- NOTE | 2018-11-02 22:15 | PDOC ---
History of Present Illness - General Chief Complaint: Urinary Catheter Problem Stated Complaint: HEMORRHAGE Time Seen by Provider: 11/02/18 22:07 - History of Present Illness Initial Comments: 11/02/18 22:15 83 yo M with h/o HTN, BPH, hypothyroidism who p/w urinary catheter pain. Patient at bedside. Patient and patient poor historian. Patient reports onset of sharp urethral pain, this afternoon, following day 1 of mckenzie catheter placement. Noted blood in catheter bag upon placement. Now with continuos urethral pain. Discharged from [facility] today following 2 week stay. Patient to undergo TAVR (11-23-18). Per Nina Nettles ( patient sister [phone] ) patient with mckenzie catheter in place, but repd/t urinary retention 2/2 BPH. Patient denies FRIEND, vision change, palpitations, cough, wheezing, orthopena, PND , leg swelling/pain, N/V, F,C, CP, SOB, urinary complaints, BPR, abdominal pain , diarrhea, constipation, lightheadedness, weakness, sensory changes. PMHx: as noted above ROS: as noted SHx: Denies Etoh, IVDA, tobacco use Allergies: Erythromycin, Traimcinilone, Naproxen Past History - Past Medical History Allergies/Adverse Reactions: Allergies Allergy/AdvReac Type Severity Reaction Status Date / Time erythromycin base Allergy Severe Difficulty Verified 11/02/18 21:07 Breathing triamcinolone Allergy Intermediate Rash Verified 11/02/18 21:07 naproxen [From Naprosyn] Allergy Verified 11/02/18 21:07 Home Medications: Ambulatory Orders Allopurinol [Zyloprim -] 100 mg PO DAILY 05/20/14 Levothyroxine [Synthroid -] 50 mcg PO DAILY 05/20/14 Quinapril HCl [Accupril -] 40 mg PO DAILY 05/20/14 Rosuvastatin Calcium [Crestor] 10 mg PO DAILY 05/20/14 Silodosin [Rapaflo] 8 mg PO DAILY 05/20/14 Multivitamins [Multivit ([facility] Formulary)] 1 tab PO DAILY 07/22/14 COPD: No HTN: Yes Hypercholesterolemia: Yes Thyroid Disease: Yes (HYPO) - Surgical History Abdominal Surgery: Yes Appendectomy: Yes - Immunization History Immunization Up to Date: Yes - Suicide/Smoking/Psychosocial Hx Smoking History: Never smoked Have you smoked in the past 12 months: No If you are a former smoker, when did you quit?: 1974 Information on smoking cessation initiated: No Hx Alcohol Use: No Drug/Substance Use Hx: No Substance Use Type: None Review of Systems - Review of Systems Comments:: 11/03/18 00:03 GENERAL/CONSTITUTIONAL: No fever or chills. No weakness. HEAD, EYES, EARS, NOSE AND THROAT: No change in vision. No ear pain or discharge. No sore throat. CARDIOVASCULAR: No chest pain or shortness of breath RESPIRATORY: No cough, wheezing, or hemoptysis. GASTROINTESTINAL: No nausea, vomiting, diarrhea or constipation. GENITOURINARY: + Penile pain. No dysuria, frequency, or change in urination. MUSCULOSKELETAL: No joint or muscle swelling or pain. No neck or back pain. SKIN: No rash NEUROLOGIC: No headache, vertigo, loss of consciousness, or change in strength/ sensation. ENDOCRINE: No increased thirst. No abnormal weight change HEMATOLOGIC/LYMPHATIC: No anemia, easy bleeding, or history of blood clots. ALLERGIC/IMMUNOLOGIC: No hives or skin allergy. *Physical Exam - Vital Signs Last Vital Signs Temp Pulse Resp BP Pulse Ox 98.1 F 96 H 18 117/55 L 97 11/02/18 20:53 11/02/18 20:53 11/02/18 20:53 11/02/18 20:53 11/02/18 20:53 - Physical Exam Comments: 11/03/18 00:04 GENERAL: Awake, alert, and fully oriented, in no acute distress HEAD: No signs of trauma, normocephalic, atraumatic EYES: PERRLA, EOMI, sclera anicteric, conjunctiva clear ENT: Auricles normal inspection, hearing grossly normal, nares patent, oropharynx clear without exudates. Moist mucosa NECK: Normal ROM, supple, no lymphadenopathy, JVD, or masses LUNGS: No distress, speaks full sentences, clear to auscultation bilaterally HEART: Regular rate and rhythm, normal S1 and S2, no murmurs, rubs or gallops, peripheral pulses normal and equal bilaterally. ABDOMEN: Soft, nontender, normoactive bowel sounds. No guarding, no rebound. No masses GENITOURINARY:+ Mckenzie catheter in place with ecchymosis on right anterior groin. + Blood dried anterior thigh. Absent scrotal skin change, lesions, or testicular ttp. Absent penile discharge or lesions. Absent inguinal lymphadenopathy or bulge. Absent perineum skin change. EXTREMITIES : Normal inspection, Normal range of motion, no edema. No clubbing or cyanosis. NEUROLOGICAL: Cranial nerves II through XII grossly intact. Normal speech, normal gait, no focal sensorimotor deficits SKIN: Warm, Dry, normal turgor, no rashes or lesions noted ED Treatment Course - LABORATORY CBC & Chemistry Diagram: 11/03/18 02:20 11/03/18 02:20 Medical Decision Making - Medical Decision Making 11/03/18 00:05 83 yo M with h/o HTN, BPH, hypothyroidism who p/w urinary catheter pain. Vitals wnl, AF, A&OX3. Physical exam unremarkable with mckenzie in place. Absent evidence urethral injury. Slight blood at urethral meatus, absent perianal hematoma. Bedside U/S reveals 198 cc bladder volume. Will assess for hypoglycemia, electrolyte abnml, metabolic and toxic derangements, acid-base disturbances, infection. 11/03/18 00:54 ED Course: EKG: NSR with absent MICKI, STD. Nml interval duration and axis. Nml R wave progression. Absent Q waves. U/S: No pseudoaneurysm of the right common femoral artery or of the proximal right superficial femoral artery. These arteries are also patent with flow. No soft tissue hematoma in the area that was probed. 11/03/18 03:32 BUN/Cr: 66.5/2.5 K+ 5.5 trop: Neg 11/03/18 04:17 Pt. admitted to medicine to med/surg for BRANDYN Pt. endorsed to Dr. Rosales *DC/Admit/Observation/Transfer Diagnosis at time of Disposition: Mckenzie catheter in place, BRANDYN (acute kidney injury) - Discharge Dispostion Condition at time of disposition: Stable Decision to Admit order: Yes - Referrals - Patient Instructions - Post Discharge Activity
[2018-11-03] MEDS ORDERED: ACETAMINOPHEN 325 MG TABLET (FP) PO ONE (00:01)
[2018-11-03] MEDS ORDERED: ACETAMINOPHEN 325 MG TABLET (FP) ONE (01:06)
[2018-11-03 02:35] LABS: ALBUMIN 3.7 g/dl (3.4-5.0); ALK PHOS 103 U/L (45-117); ANION GAP 7 MMOL/L (8-16); BILIRUBIN,TOTAL 0.6 mg/dL (0.2-1); BLOOD UREA NITROGEN 67.8 mg/dL (7-18); CALCIUM 8.7 mg/dL (8.5-10.1); CHLORIDE 107 mmol/L (98-107); CO2 21 mmol/L (21-32); CREATININE 2.6 mg/dL (0.55-1.3); GLUCOSE,RANDOM 119 mg/dL (74-106); POTASSIUM 5.8 mmol/L (3.5-5.1); SGOT/AST 17 U/L (15-37); SGPT/ALT 41 U/L (13-61); SODIUM 135 mmol/L (136-145); TOT PROT 6.8 g/dl (6.4-8.2)
[2018-11-03 03:00] LABS: BASO % 0.7 % (0-2.0); EOS % 3.3 % (0-4.5); HEMATOCRIT 33.9 % (35.4-49); HEMOGLOBIN 11.3 GM/dL (11.7-16.9); LYMPH % 13.7 % (8-40); MCH 30.9 pg (25.7-33.7); MCHC 33.2 g/dl (32.0-35.9); MEAN CELL VOLUME 92.9 fl (80-96); MEAN PLT VOLUME 9.3 fl (7.5-11.1); MONO % 8.7 % (3.8-10.2); NEUT % 73.6 % (42.8-82.8); PLATELET COUNT 164 K/MM3 (134-434); RBC 3.65 M/mm3 (4.00-5.60); RDW 15.5 % (11.9-15.9); WHITE BLOOD COUNT 8.5 K/mm3 (4.0-10.0)
[2018-11-03 03:18] LABS: INR 1.08 (0.83-1.09); PROTHROMBIN TIME (PATIENT) 12.7 SEC (9.7-13.0)
[2018-11-03 03:30] LABS: ALBUMIN 3.4 g/dl (3.4-5.0); BILIRUBIN,TOTAL 0.5 mg/dL (0.2-1); BLOOD UREA NITROGEN 66.5 mg/dL (7-18); CALCIUM 8.6 mg/dL (8.5-10.1); CREATININE 2.5 mg/dL (0.55-1.3); POTASSIUM 5.5 mmol/L (3.5-5.1); TOT PROT 6.3 g/dl (6.4-8.2)
--- NOTE | 2018-11-03 03:57 | PDOC ---
Documentation entered by Jim Carter SCRIBE, acting as scribe for Olga Lidia Carmichael DO. Olga Lidia Carmichael DO: This documentation has been prepared by the Raul bustamante Daniel, SCRIBE, under my direction and personally reviewed by me in its entirety. I confirm that the documentation accurately reflects all work , treatment, procedures, and medical decision making performed by me. Attending Attestation - Resident Resident Name: [email or web address] - ED Attending Attestation I have performed the following: I have examined & evaluated the patient, The case was reviewed & discussed with the resident, I agree w/resident's findings & plan - HPI HPI: 11/02/18 23:16 The patient is an 83 year old male with a past medical history of HTN, hypothyroidism, gout, and aortic valve disorder here today for evaluation of pain at the site of urinary catheter. The patient reports that he was discharged today from [facility] after being there for a week. He states that he has had pain in the urethra since the catheter was placed and noted seeing blood in the bag today. He denies pulling on the catheter. Patient denies headache, lightheadedness. Denies fever, chills. Denies chest pain, shortness of breath. Denies nausea, vomiting, diarrhea, abdominal pain. Allergies: erythromycin base, triamcinolone, naproxen PCP: Raman Hoffman Urologist: Gilbert Ricks - Physicial Exam PE: 11/02/18 23:16 Agree with the resident's physical exam. - Medical Decision Making 11/03/18 03:53 83-year-old male with bleeding from the catheter site Patient had a recent discharged from [facility], hold the family and the patient are poor historians Ultrasound was performed of the right groin which shows no pseudoaneurysm The patient does have acute elevation of the creatinine with elevation of the potassium level as well In this setting patient will be held for some IV hydration as well as treatment for hyperkalemia Chauhan catheter currently draining
--- NOTE | 2018-11-03 04:06 | PN ---
Teaching Attending Note Name of Resident: Mica Rosales ATTENDING PHYSICIAN STATEMENT I saw and evaluated the patient. I reviewed the resident's note and discussed the case with the resident. I agree with the resident's findings and plan as documented. SUBJECTIVE: Patient is an 83 year old man with PMH of HTN, BPH, Gout, Macular degeneration, Hypothyroidism, Severe symptomatic aortic stenosis and CKD (?stage 3) who presents with urinary catheter pain. Patient's at bedside helped provide history. Patient reports onset of sharp urethral pain this afternoon, following day 1 of chauhan catheter placement. Noted blood in catheter bag upon placement. Now with continuous urethral pain. Discharged from [facility] today following a 2 week stay. Had an angiogram study as part of preop for TAVR. Patient scheduled to undergo TAVR (11-23-18). Started having meatal penile pain, urinary retention and bleeding after he left the hospital. Still having pain with any manipulation of the chauhan. Patient denies headache, vision change, palpitations, cough, wheezing, orthopnea, PND, leg swelling/pain, nausea, vomiting, fever, chills, chest pain, SOB, BPR, abdominal pain, diarrhea, constipation, lightheadedness or weakness. OBJECTIVE: Alert Vital Signs Period Temp Pulse Resp BP Sys/Franco Pulse Ox Last 24 Hr 98.1 F 96 18 117/55 97 HEENT: No Jaundice, eye redness or discharge, PERRLA, EOMI. Normocephalic, atraumatic. External ears are normal and hearing is grossly intact. No nasal discharge. Neck: Supple, nontender. No palpable adenopathy or thyromegaly. No JVD Chest: Good effort. Clear to auscultation and percussion. Heart: Regular. No S3 or rub; 2/6 TARA. Abdomen: Not distended, soft, suprapubic tenderness and no HSM. No rebound or guarding. Normal bowel sounds. Ext: Peripheral pulses intact. No leg edema. Chauhan catheter in place with coke colored urine; no blood clots and red blood around meatus. Skin: Warm and dry. No petechiae, rash or ecchymosis. Neuro: Alert. Oriented x3. CN 2-12 grossly intact. Sensation grossly intact in all four extremities and DTR are symmetric. Psych: Appropriate mood and affect. Good insight. Home Medications Medication Instructions Recorded Allopurinol [Zyloprim -] 100 mg PO DAILY 05/20/14 Levothyroxine [Synthroid -] 50 mcg PO DAILY 05/20/14 Quinapril HCl [Accupril -] 40 mg PO DAILY 05/20/14 Rosuvastatin Calcium [Crestor] 10 mg PO DAILY 05/20/14 Silodosin [Rapaflo] 8 mg PO DAILY 05/20/14 Multivitamins [Multivit ([facility] 1 tab PO DAILY 07/22/14 Formulary)] Abnormal Lab Results 11/03/18 11/03/18 11/03/18 01:16 02:20 02:20 RBC 3.65 L Hgb 11.3 L Hct 33.9 L Sodium 135 L Potassium 5.8 H 5.5 H Chloride 109 H Carbon Dioxide 20 L Anion Gap 7 L BUN 67.8 H 66.5 H Creatinine 2.6 H 2.5 H Random Glucose 119 H 119 H Total Protein 6.3 L ASSESSMENT AND PLAN: 1. Urinary outlet obstruction/?Chauhan malfunction - Penile bleeding likely due to trauma from the chauhan - perhaps due to positional changes on his ride home from [facility]. Will get bladder scan/kidney sonogram, flush chauhan, and under urology guidance deflate chauhan balloon and attempt repositioning. Urinalysis and CXR pending. Consult Urology. 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 Will hold Quinapril, relieve obstruction and hydrate gently to enhance K+ excretion. No EKG changes of hyperkalemia. Will continue comprehensive care of all his comorbid conditions including severe aortic stenosis. 2. CKD - Has multiple risk factors for CKD. Likely exacerbated by dehydration. Will consult nephrology and avoid nephrotoxic agents such as NSAIDS, aminoglycosides, contrast dyes and certain Alternative medicine products. Check uric acid level. 3. Anemia - Likely chiefly due to CKD. Will do basic anemia work up including serial stool guaiacs, reticulocyte count and iron studies. 4. Hypertension - Restart suitable outpatient antihypertensive drugs when clinically appropriate. Revise regimen to ensure good BP control. Nonpharmacologic measures to control hypertension like weight loss, salt restriction and exercise discussed. 5. DVT prophylaxis - SCD for now. 6. Advance directives - Full code
[2018-11-03] MEDS ORDERED: ACETAMINOPHEN 325 MG TABLET (FP) PO PRN (05:02)
--- NOTE | 2018-11-03 05:02 | HP ---
Admitting History and Physical - Primary Care Physician PCP: DR Reyez - Admission Chief Complaint: Hematuria and urethral pain x 1 day History of Present Illness: Pt is an 83 year old M with PMHx of hypothyrooidism, BPH, HTN, gout, HLD, Macular degen L eye, severe scheduled for TAVR in [facility] (11/23) presenting from home after pain and hematuria from mckenzie catheter site today. Pt was recently admitted for the past 1 week at [facility] in preparation for his TAVR on 11/23. He got angiography about 2 days ago with a femoral stent and was found to be retaining urine on day of discharge. He had a mckenzie catheter placed, and during the ride back he started to have sudden stabbing pain 10/10 and irritation around the urethra. He initially tugged at the mckenzie but stopped prior to getting home. When he got home, the pain was severe enough to make him jump around and he noticed hematuria up to about 4oz, without clots at the tip of the urethra. He presented to the ED and received tylenol PO. Since he has been in the ED, the bleeding has stopped and the pain improved. Pt reports prior acute retention requiring catheterization in past and follows a urologist , he is unsure of the name. He has also had what appears to be a TURP about 5 years prior. Pt follows Dr Victor Manuel Coleman as his neonatal specialist. He was recently hospitalized in September with BUN/Cr change from about 44/1.9>>66.5/2.5. Pt reports no PO intake today. He is not on any AC or ASA. 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) Quit smoking over 40yrs ago, denies alcohol/drugs FHx Cardiac stents- Brother Colon cancer-Father History Source: Patient, Medical Record Limitations to Obtaining History: No Limitations - Past Medical History Cardiovascular: Yes: Aortic Stenosis, HTN, Hyperlipdemia, Murmur, Other (HTN) Renal/: Yes: Renal Inusuff, BPH Endocrine: Yes: Hypothyroidism - Past Surgical History Past Surgical History: Yes: Cataract Removal, TURP - Smoking History Smoking history: Never smoked Have you smoked in the past 12 months: No If you are a former smoker, when did you quit?: 1974 - Alcohol/Substance Use Hx Alcohol Use: No - Social History Usual Living Arrangement: Yes: With Spouse ADL: Independent History of Recent Travel: No Home Medications - Allergies Allergies/Adverse Reactions: Allergies Allergy/AdvReac Type Severity Reaction Status Date / Time erythromycin base Allergy Severe Difficulty Verified 11/02/18 21:07 Breathing triamcinolone Allergy Intermediate Rash Verified 11/02/18 21:07 naproxen [From Naprosyn] Allergy Verified 11/02/18 21:07 - Home Medications Home Medications: Ambulatory Orders Allopurinol [Zyloprim -] 100 mg PO DAILY 05/20/14 Levothyroxine [Synthroid -] 50 mcg PO DAILY 05/20/14 Quinapril HCl [Accupril -] 40 mg PO DAILY 05/20/14 Rosuvastatin Calcium [Crestor] 10 mg PO DAILY 05/20/14 Silodosin [Rapaflo] 8 mg PO DAILY 05/20/14 Multivitamins [Multivit ([facility] Formulary)] 1 tab PO DAILY 07/22/14 Family Disease History - Family Disease History Family Disease History: Heart Disease: Brother (Stents), CA: Father (Colon) Review of Systems - Review of Systems Constitutional: denies: Chills, Fever, Lethargy, Loss of Appetite Eyes: reports: Other (MAcular degen L eye) HENT: reports: Hearing Loss. denies: Difficult Swallowing, Nasal Congestion, Throat Pain Cardiovascular: denies: Chest Pain, Edema, Palpitations, Shortness of Breath Respiratory: denies: Cough, SOB, SOB on Exertion, Wheezing Gastrointestinal: reports: Abdominal Pain Genitourinary: reports: Hematuria, Other (urethral pain). denies: Flank Pain Musculoskeletal: reports: No Symptoms Neurological: denies: Change in LOC, Change in Speech, Confusion, Pre-Existing Deficit, Syncope, Tremors Hematology/Lymphatic: denies: Easily Bruised, Excessive Bleeding Physical Examination Vital Signs: Vital Signs Temperature 98.1 F 11/02/18 20:53 Pulse Rate 96 H 11/02/18 20:53 Respiratory Rate 18 11/02/18 20:53 Blood Pressure 117/55 L 11/02/18 20:53 O2 Sat by Pulse Oximetry (%) 97 11/02/18 20:53 Constitutional: Yes: Anxious Eyes: Yes: Conjunctiva Clear, EOM Intact, PERRL. No: Sclera Icterus HENT: Yes: Atraumatic Neck: Yes: Supple Cardiovascular: Yes: Murmur (systolic RSB and [place]), S1, S2 Respiratory: Yes: CTA Bilaterally. No: Rales, Rhonchi, Tachypnea, Wheezes Gastrointestinal: Yes: Soft, Abdomen, Obese, Tenderness (Suprapubic fullness and tenderness) Renal/: Yes: Bladder Distention, Mckenzie Present, Hematuria (tea colored urine, no obvios clots). No: CVA Tenderness - Left, CVA Tenderness - Right Edema: No Peripheral Pulses WNL: Yes Integumentary: Yes: Other (excoriation over b/l shins) Neurological: Yes: Alert, Oriented. No: Aphasia, Asterixis, Confusion, Facial Droop, Lethargy, Pre-Existing Deficit, Tremors ...Motor Strength: WNL Psychiatric: Yes: Alert, Oriented Labs: CBC, BMP 11/03/18 02:20 11/03/18 02:20 Imaging - Results Ultrasound: Report Reviewed Assessment/Plan Ambulatory Orders Allopurinol [Zyloprim -] 100 mg PO DAILY 05/20/14 Levothyroxine [Synthroid -] 50 mcg PO DAILY 05/20/14 Quinapril HCl [Accupril -] 40 mg PO DAILY 05/20/14 Rosuvastatin Calcium [Crestor] 10 mg PO DAILY 05/20/14 Silodosin [Rapaflo] 8 mg PO DAILY 05/20/14 Multivitamins [Multivit ([facility] Formulary)] 1 tab PO DAILY 07/22/14 Current Medications Acetaminophen (Tylenol -) 650 mg PO Q4H PRN PRN Reason: PAIN Sodium Chloride (Normal Saline -) 1,000 mls @ 50 mls/hr IV ASDIR ANGELA Stop: 11/04/18 05:05 Levothyroxine Sodium (Synthroid -) 50 mcg PO DAILY@0700 [facility] Non-Formulary Medication (Silodosin [Rapaflo]) 8 mg PO DAILY ANGELA Rosuvastatin Calcium (Crestor -) 10 mg PO HS ANGELA Pt is an 83 year old M with PMHx of hypothyroidism, BPH, HTN, gout, HLD, Macular degen L eye, severe scheduled for TAVR in [facility] (11/23) presenting from home after pain and hematuria from mckenzie catheter site today. #Hematuria Pt with reported urianry retention requiring mckenzie catheter Likely bleeding in setting of trauma to mckenzie from pt tugging flush mckenzie to R/o clots with obstruction of mckenzie Renal/Kidney US- pending Urol consult-Dr Zarco Pt not on AC/ASA Hold allopurinol #Urinary retention Pt with prior hx of retention and hx of BPH flush mckenzie, Kidney/bladder US pending Tylenol for pain Urol consult Flomax 0.8stat #Hyperkalemia Likely in setting of Type IV RTA with dehydration, likely combined effect of obstruction and ACEI, with worsening CKD Hold quinapril Gentle hydration @50/hr Kidney bladder US pending Flush mckenzie #BRANDYN on CKD Pt likely dehydrated with poor PO intake, with likely urinary retention Likely recent contrast, unsure what meds he got at [facility], would need follow up in am Pt with known CKD, follows Dr Coleman Gentle hydration Encourage PO intake Monitor ins and outs Nephro consult- Dr Gong Avoid nephrotoxic drugs Hold quinapril, allopurinol #hypothyroidism Cont levothyroxine 50mcg daily #BPH Pt on silodosin at home -NF Flomax substitited by pharmacy- cont Urol consult #HTN BP not elevated Hold quinapril in setting of K #gout No apparent flare Hold allopurinol in acute bleed #HLD Cont crestor #Macular degen L eye 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 Cont to monitor #severe scheduled for TAVR Pt scheduled for 11/23- really wants to get the procedure done For follow up with [facility] #FEN NS @50/hr, encourage liberal PO intake Monitor lytes, repeat BMP, will hold off lasix/kayexalate at this time, pt dehydrated Regular diet PPx Hold off chemical prophylaxis in setting of acute bleed No indication for PPI at this time Medsurg Visit type - Emergency Visit Emergency Visit: Yes Care time: The patient presented to the Emergency Department on the above date and was hospitalized for further evaluation of their emergent condition. - New Patient This patient is new to me today: Yes Date on this admission: 11/03/18 - Critical Care Critical Care patient: No
[2018-11-03] MEDS ORDERED: TAMSULOSIN HCL 0.4 MG CAP PO ONE (05:08)
[2018-11-03] MEDS: SODIUM CHLORIDE 1,000 ML IV SCH ×3 (06:04→22:29)
[2018-11-03] MEDS ORDERED: TAMSULOSIN HCL 0.4 MG CAP ONE (07:42)
[2018-11-03] MEDS ORDERED: LEVOTHYROXINE NA 25 MCG TABLET (FP) ONE (07:42)
[2018-11-03] MEDS: LEVOTHYROXINE NA 50 MCG TABLET (FP) PO SCH (07:44)
[2018-11-03 07:46] LABS: HYALINE CASTS 2 /lpf (0-8); URINE APPEARANCE CLOUDY; URINE BACTERIA 23.5 /hpf (NEGATIVE); URINE BILIRUBIN NEGATIVE (NEGATIVE); URINE COLOR DK YELLOW; URINE GLUCOSE (UA) NEGATIVE (NEGATIVE); URINE KETONE NEGATIVE (NEGATIVE); URINE LEUK ESTERASE TRACE (NEGATIVE); URINE NITRITE POSITIVE (NEGATIVE); URINE PROTEIN 2+ (NEGATIVE); URINE RBC 144 /hpf (0-4); URINE WBC 5 /hpf (0-5)
--- NOTE | 2018-11-03 08:06 | EKG ---
Test Reason : Blood Pressure : / mmHG Vent. Rate : 076 BPM Atrial Rate : 076 BPM P-R Int : 172 ms QRS Dur : 084 ms QT Int : 426 ms P-R-T Axes : 026 000 077 degrees QTc Int : 479 ms NORMAL SINUS RHYTHM NORMAL ECG WHEN COMPARED WITH ECG OF 23-SEP-2018 18:25, NONSPECIFIC T WAVE ABNORMALITY, WORSE IN LATERAL LEADS Confirmed by HUMBLE DELUNA, ZANE ([id number]) on 11/03/2018 8:06:02 AM Referred By: Confirmed By:ZANE KATE MD
[2018-11-03 09:14] LABS: BASO % 0.8 % (0-2.0); EOS % 4.5 % (0-4.5); HEMATOCRIT 35.5 % (35.4-49); HEMOGLOBIN 11.8 GM/dL (11.7-16.9); LYMPH % 17.7 % (8-40); MCH 31.2 pg (25.7-33.7); MCHC 33.4 g/dl (32.0-35.9); MEAN CELL VOLUME 93.4 fl (80-96); MEAN PLT VOLUME 9.3 fl (7.5-11.1); MONO % 10.8 % (3.8-10.2); NEUT % 66.2 % (42.8-82.8); PLATELET COUNT 150 K/MM3 (134-434); RDW 15.3 % (11.9-15.9); WHITE BLOOD COUNT 6.3 K/mm3 (4.0-10.0)
[2018-11-03 09:42] LABS: ALBUMIN 3.4 g/dl (3.4-5.0); BILIRUBIN,TOTAL 1.1 mg/dL (0.2-1); BLOOD UREA NITROGEN 61.2 mg/dL (7-18); CALCIUM 8.7 mg/dL (8.5-10.1); CREATININE 2.5 mg/dL (0.55-1.3); MAGNESIUM 2.2 mg/dL (1.8-2.4); PHOSPHOROUS 4.1 mg/dL (2.5-4.9); POTASSIUM 5.4 mmol/L (3.5-5.1); TOT PROT 6.5 g/dl (6.4-8.2)
--- NOTE | 2018-11-03 10:35 | PN ---
Teaching Attending Note Name of Resident: Yumi Lam ATTENDING PHYSICIAN STATEMENT I saw and evaluated the patient. I reviewed the resident's note and discussed the case with the resident. I agree with the resident's findings and plan as documented with exceptions below. SUBJECTIVE: Patient seen and examined, Denies any urethral or abdominal pain currently. No fevers, chills, decreased po intake. Denies any flank pain OBJECTIVE: Vital Signs Period Temp Pulse Resp BP Sys/Franco Pulse Ox Last 24 Hr 97.9 F-98.1 F 72-96 15-18 117-142/55-64 95-97 Intake & Output 10/31/18 11/01/18 11/02/18 11/03/18 23:59 23:59 23:59 23:59 Output Total 100 Balance -100 Weight 199 lb General: lying in stretcher no acute distress Chest: CTAB, no rales or wheezing Abdomen:soft, NT, obese, RLQ/flank ecchymosis, no suprapubic or CVA tenderness, no voluntary or involuntary guarding or rigidity, pos bowel sounds, mckenzie draining clear urine Extremities: no edema Neck: soft, supple Home Medications Medication Instructions Recorded Allopurinol [Zyloprim -] 100 mg PO DAILY 05/20/14 Levothyroxine [Synthroid -] 50 mcg PO DAILY 05/20/14 Quinapril HCl [Accupril -] 40 mg PO DAILY 05/20/14 Rosuvastatin Calcium [Crestor] 10 mg PO DAILY 05/20/14 Silodosin [Rapaflo] 8 mg PO DAILY 05/20/14 Multivitamins [Multivit ([facility] 1 tab PO DAILY 07/22/14 Formulary)] Active Medications Acetaminophen (Tylenol -) 650 mg PO Q4H PRN PRN Reason: PAIN Sodium Chloride (Normal Saline -) 1,000 mls @ 50 mls/hr IV ASDIR [facility] Stop: 11/04/18 05:05 Last Admin: 11/03/18 06:04 Dose: 50 mls/hr Levothyroxine Sodium (Synthroid -) 50 mcg PO DAILY@0700 [facility] Last Admin: 11/03/18 07:44 Dose: 50 mcg Rosuvastatin Calcium (Crestor -) 10 mg PO [facility] Sodium Zirconium Cyclosilicate (Lokelma) 5 gm PO ONCE ONE Stop: 11/03/18 10:26 Tamsulosin HCl (Flomax -) 0.4 mg PO DAILY@0830 [facility] Laboratory Results - last 24 hr 11/03/18 11/03/18 11/03/18 01:16 02:20 02:20 WBC 8.5 RBC 3.65 L Hgb 11.3 L Hct 33.9 L MCV 92.9 MCH 30.9 MCHC 33.2 RDW 15.5 Plt Count 164 MPV 9.3 Absolute Neuts (auto) 6.2 Neutrophils % 73.6 D Lymphocytes % 13.7 D Monocytes % 8.7 Eosinophils % 3.3 Basophils % 0.7 Nucleated RBC % 0 PT with INR 12.70 INR 1.08 PTT (Actin FS) Sodium 135 L Potassium 5.8 H Chloride 107 Carbon Dioxide 21 Anion Gap 7 L BUN 67.8 H Creatinine 2.6 H Est GFR (CKD-EPI)AfAm 25.48 Est GFR (CKD-EPI)NonAf 21.98 Random Glucose 119 H Calcium 8.7 Phosphorus Magnesium Total Bilirubin 0.6 AST 17 ALT 41 Alkaline Phosphatase 103 Creatine Kinase 123 Troponin I < 0.02 Total Protein 6.8 Albumin 3.7 Urine Color Urine Appearance Urine pH Ur Specific Center Urine Protein Urine Glucose (UA) Urine Ketones Urine Blood Urine Nitrite Urine Bilirubin Urine Urobilinogen Ur Leukocyte Esterase Urine WBC (Auto) Urine RBC (Auto) Urine Casts (Auto) U Epithel Cells (Auto) Urine Bacteria (Auto) Anti-A Titer Blood Type Antibody Screen 11/03/18 11/03/18 11/03/18 02:20 02:20 06:21 WBC RBC Hgb Hct MCV MCH MCHC RDW Plt Count MPV Absolute Neuts (auto) Neutrophils % Lymphocytes % Monocytes % Eosinophils % Basophils % Nucleated RBC % PT with INR INR PTT (Actin FS) Sodium 136 Potassium 5.5 H Chloride 109 H Carbon Dioxide 20 L Anion Gap 8 BUN 66.5 H Creatinine 2.5 H Est GFR (CKD-EPI)AfAm 26.71 Est GFR (CKD-EPI)NonAf 23.05 Random Glucose 119 H Calcium 8.6 Phosphorus Magnesium Total Bilirubin 0.5 AST 17 ALT 37 Alkaline Phosphatase 94 Creatine Kinase Troponin I Total Protein 6.3 L Albumin 3.4 Urine Color Dk yellow Urine Appearance Cloudy Urine pH 5.0 Ur Specific Center 1.007 L Urine Protein 2+ H Urine Glucose (UA) Negative Urine Ketones Negative Urine Blood 3+ H Urine Nitrite Positive H Urine Bilirubin Negative Urine Urobilinogen 1.0 Ur Leukocyte Esterase Trace Urine WBC (Auto) 5 Urine RBC (Auto) 144 Urine Casts (Auto) 2 U Epithel Cells (Auto) 2.0 Urine Bacteria (Auto) 23.5 Anti-A Titer Cancelled Blood Type B POSITIVE Antibody Screen Negative 11/03/18 11/03/18 11/03/18 08:58 08:58 08:58 WBC 6.3 RBC 3.80 L Hgb 11.8 Hct 35.5 MCV 93.4 MCH 31.2 MCHC 33.4 RDW 15.3 Plt Count 150 MPV 9.3 Absolute Neuts (auto) 4.2 Neutrophils % 66.2 Lymphocytes % 17.7 D Monocytes % 10.8 H Eosinophils % 4.5 Basophils % 0.8 Nucleated RBC % 0 PT with INR INR PTT (Actin FS) 33.6 Sodium 139 Potassium 5.4 H Chloride 110 H Carbon Dioxide 22 Anion Gap 7 L BUN 61.2 H Creatinine 2.5 H Est GFR (CKD-EPI)AfAm 26.71 Est GFR (CKD-EPI)NonAf 23.05 Random Glucose 101 Calcium 8.7 Phosphorus 4.1 Magnesium 2.2 Total Bilirubin 1.1 H AST 14 L ALT 37 Alkaline Phosphatase 93 Creatine Kinase Troponin I Total Protein 6.5 Albumin 3.4 Urine Color Urine Appearance Urine pH Ur Specific Center Urine Protein Urine Glucose (UA) Urine Ketones Urine Blood Urine Nitrite Urine Bilirubin Urine Urobilinogen Ur Leukocyte Esterase Urine WBC (Auto) Urine RBC (Auto) Urine Casts (Auto) U Epithel Cells (Auto) Urine Bacteria (Auto) Anti-A Titer Blood Type Antibody Screen arterial doppler and renal US results noted ASSESSMENT AND PLAN: 83 yom with PMHx of hypothyrooidism, BPH, HTN, gout, HLD, Macular degen L eye, CKD ?stage III, severe scheduled for TAVR in [facility] (11/23), recent 2 week admission at [facility] prep, with reported angiography, d/tyree yesterday with mckenzie admitted with pain at mckenzie site and hematuria -Pain at mckenzie site/hematuria, suspect from trauma/tugging at the mckenzie -BRANDYN on CKD ?Stage III, ?from urinary obstruction/hypolumia, ?contrast dye expsoure/ACEi -Hyperkalemia, likely from above/ACEi -BPH with urinary retention -Severe , for TAVR on 11/23/18 -HTN -HLD -Gout -Hypothyroidism Plan: Mckenzie changed, draining clear urine, pain resolved. Follow up urology input. Tamsulosin. Resume rapaflo on dc. Cr unchanged, k better. Retrieve recent cr on dc from [facility]. Nephrology consult. Lokelma x 1. Gentle hydration, hold ACEi. Low K diet. Renal US noted. Check Bladder US. Arterial duplex noted, Flank ecchymosis but stable H/h and no symptoms, monitor for now. Hold ACEi. DVTPPX SCDs given concerns for hematuria PT eval Dispo d/c [id number] if no new concerns and renal function stable. Plan discussed with patient, care co-ordinated with nephrology.
[2018-11-03] MEDS ORDERED: SODIUM ZIRCONIUM CYCLOSILICATE (LOKELMA) 5 GM PACKET PO ONE (11:00)
[2018-11-03 11:04] LABS: ANISOCYTOSIS 1+; MACROCYTOSIS 0; OVALOCYTE 1+; PLATELET ESTIMATE NORMAL
--- NOTE | 2018-11-03 13:35 | CONSULT ---
Consult Consult Specialty:: Nephrology Reason for Consultation:: ckd - History of Present Illness Chief Complaint: pain from urinary catheter History of Present Illness: Pt is an 83 year old male with pmhx of CKD, HTN, hypothyroidism, gout and aortic valve disease who presents to the ER with pain from the mckenzie site. He also noted having blood in the urine. He denies shortness of breath. He denies chest pain. He denies fevers or chills. He has history of CKD and follows with Dr Cota. I was called to evaluate him for elevated creatinine. - History Source History Provided By: Patient - Past Medical History Cardio/Vascular: Yes: Aortic Stenosis, HTN, Hyperlipdemia, Murmur, Other (HTN) Renal/: Yes: Renal Inusuff, BPH Endocrine: Yes: Hypothyroidism - Past Surgical History Past Surgical History: Yes: Cataract Removal, TURP - Alcohol/Substance Use Hx Alcohol Use: No - Smoking History Smoking history: Never smoked Have you smoked in the past 12 months: No If you are a former smoker, when did you quit?: 1974 - Social History Usual Living Arrangement: With Spouse ADL: Independent History of Recent Travel: No Home Medications - Allergies Allergies/Adverse Reactions: Allergies Allergy/AdvReac Type Severity Reaction Status Date / Time erythromycin base Allergy Severe Difficulty Verified 11/02/18 21:07 Breathing triamcinolone Allergy Intermediate Rash Verified 11/02/18 21:07 naproxen [From Naprosyn] Allergy Verified 11/02/18 21:07 - Home Medications Home Medications: Ambulatory Orders Allopurinol [Zyloprim -] 100 mg PO DAILY 05/20/14 Levothyroxine [Synthroid -] 50 mcg PO DAILY 05/20/14 Quinapril HCl [Accupril -] 40 mg PO DAILY 05/20/14 Rosuvastatin Calcium [Crestor] 10 mg PO DAILY 05/20/14 Silodosin [Rapaflo] 8 mg PO DAILY 05/20/14 Multivitamins [Multivit ([facility] Formulary)] 1 tab PO DAILY 07/22/14 Family Disease History - Family Disease History Family Disease History: Heart Disease: Brother (Stents), CA: Father (Colon) Review of Systems - Review of Systems Constitutional: reports: Malaise Eyes: reports: No Symptoms HENT: reports: No Symptoms Neck: reports: No Symptoms Cardiovascular: reports: No Symptoms Respiratory: reports: No Symptoms Gastrointestinal: reports: No Symptoms Genitourinary: reports: Other (mckenzie present) Musculoskeletal: reports: No Symptoms Integumentary: reports: No Symptoms Neurological: reports: No Symptoms Endocrine: reports: No Symptoms Hematology/Lymphatic: reports: No Symptoms Psychiatric: reports: No Symptoms Physical Exam Vital Signs: Vital Signs Temperature 97.9 F 11/03/18 06:51 Pulse Rate 72 11/03/18 06:51 Respiratory Rate 15 11/03/18 06:51 Blood Pressure 142/64 11/03/18 06:51 O2 Sat by Pulse Oximetry (%) 95 11/03/18 06:51 Constitutional: Yes: Calm Eyes: Yes: Conjunctiva Clear HENT: Yes: Atraumatic Neck: Yes: Supple Cardiovascular: Yes: S1, S2 Respiratory: Yes: CTA Bilaterally Gastrointestinal: Yes: Normal Bowel Sounds, Soft Renal/: Yes: Mckenzie Present. No: Hematuria Musculoskeletal: Yes: WNL Edema: No Neurological: Yes: Oriented Psychiatric: Yes: Oriented Labs: CBC, BMP 11/03/18 08:58 11/03/18 08:58 Microbiology Laboratory Tests 11/03/18 11/03/18 11/03/18 01:16 02:20 06:21 WBC Hgb Plt Count Sodium 135 L 136 Potassium 5.8 H 5.5 H Chloride Anion Gap BUN Creatinine 2.6 H 2.5 H Ur Specific [place] 1.007 L Urine Protein 2+ H Urine Blood 3+ H 11/03/18 11/03/18 08:58 08:58 WBC 6.3 Hgb 11.8 Plt Count 150 Sodium 139 Potassium 5.4 H Chloride 110 H Anion Gap 7 L BUN 61.2 H Creatinine 2.5 H Ur Specific [place] Urine Protein Urine Blood Imaging - Results Ultrasound: Report Reviewed Problem List - Problems (1) CKD (chronic kidney disease) Code(s): N18.9 - CHRONIC KIDNEY DISEASE, UNSPECIFIED (2) Hyperkalemia Code(s): E87.5 - HYPERKALEMIA Assessment/Plan Current Medications Generic Name Dose Route Start Last Admin Trade Name Freq PRN Reason Stop Dose Admin Acetaminophen 650 mg 11/03/18 05:02 Tylenol - PO Q4H PRN PAIN Sodium Chloride 1,000 mls @ 50 mls/hr 11/03/18 05:15 11/03/18 06:04 Normal Saline - IV 11/04/18 05:05 50 mls/hr ASDIR ANGELA Administration Levothyroxine Sodium 50 mcg 11/03/18 07:00 11/03/18 07:44 Synthroid - PO 50 mcg DAILY@0700 ANGELA Administration Rosuvastatin Calcium 10 mg 11/03/18 22:00 Crestor - PO HS ANGELA Tamsulosin HCl 0.4 mg 11/04/18 08:30 Flomax - PO DAILY@0830 [facility] Impression 1. CKD 2. BRANDYN 3. hyperkalemia 4. hypothyroidism 5. HLD 6. hematuria 7. BPH 8. gout Plan - cont with fluids for now - urine appears clear - will give lokelma for hyperkalemia - will call for outpt labs to assess baseline analytical lead - low potassium diet - consider urology eval
--- NOTE | 2018-11-03 13:55 | PN ---
Physical Exam: SUBJECTIVE: Patient seen and examined resting in bed nad, afebrile hemodynamically stable. mckenzie was replaced and hematuria resolved. mckenzie draining vlear yellow urine. patient reports mild burning sensation at tip of penis only if he touches it. OBJECTIVE: Vital Signs Period Temp Pulse Resp BP Sys/Franco Pulse Ox Last 24 Hr 97.9 F-98.1 F 72-96 15-18 117-142/55-64 95-97 GENERAL: The patient is awake, alert, and fully oriented, in no acute distress. HEAD: Normal with no signs of trauma. EYES: PERRL, extraocular movements intact, sclera anicteric, conjunctiva clear. No ptosis. ENT: moist mucous membranes. NECK: supple. LUNGS: Breath sounds equal, clear to auscultation bilaterally HEART: Regular rate and rhythm, S1, S2 ABDOMEN: Soft, nontender, nondistended, normoactive bowel sounds, no guarding, no rebound, no hepatosplenomegaly, no masses. Groin: r inguinal are bruising. penis w/o lesions, no evidence of bleeding. mckenzie in place with clear yellow urine. EXTREMITIES: 2+ b/l DP pulses, warm, well-perfused, no edema. NEUROLOGICAL: Cranial nerves II through XII grossly intact. Normal speech, gait not observed. PSYCH: Normal mood, normal affect. SKIN: Warm, dry Laboratory Results - last 24 hr 11/03/18 11/03/18 11/03/18 01:16 02:20 02:20 WBC 8.5 RBC 3.65 L Hgb 11.3 L Hct 33.9 L MCV 92.9 MCH 30.9 MCHC 33.2 RDW 15.5 Plt Count 164 MPV 9.3 Absolute Neuts (auto) 6.2 Neutrophils % 73.6 D Neutrophils % (Manual) Band Neutrophils % Lymphocytes % 13.7 D Lymphocytes % (Manual) Monocytes % 8.7 Monocytes % (Manual) Eosinophils % 3.3 Eosinophils % (Manual) Basophils % 0.7 Basophils % (Manual) Myelocytes % (Man) Promyelocytes % (Man) Blast Cells % (Manual) Nucleated RBC % 0 Metamyelocytes Hypochromia Platelet Estimate Polychromasia Poikilocytosis Anisocytosis Microcytosis Macrocytosis Ovalocytes PT with INR 12.70 INR 1.08 PTT (Actin FS) Sodium 135 L Potassium 5.8 H Chloride 107 Carbon Dioxide 21 Anion Gap 7 L BUN 67.8 H Creatinine 2.6 H Est GFR (CKD-EPI)AfAm 25.48 Est GFR (CKD-EPI)NonAf 21.98 Random Glucose 119 H Calcium 8.7 Phosphorus Magnesium Total Bilirubin 0.6 AST 17 ALT 41 Alkaline Phosphatase 103 Creatine Kinase 123 Troponin I < 0.02 Total Protein 6.8 Albumin 3.7 Urine Color Urine Appearance Urine pH Ur Specific [place] Urine Protein Urine Glucose (UA) Urine Ketones Urine Blood Urine Nitrite Urine Bilirubin Urine Urobilinogen Ur Leukocyte Esterase Urine WBC (Auto) Urine RBC (Auto) Urine Casts (Auto) U Epithel Cells (Auto) Urine Bacteria (Auto) Anti-A Titer Blood Type Antibody Screen 11/03/18 11/03/18 11/03/18 02:20 02:20 06:21 WBC RBC Hgb Hct MCV MCH MCHC RDW Plt Count MPV Absolute Neuts (auto) Neutrophils % Neutrophils % (Manual) Band Neutrophils % Lymphocytes % Lymphocytes % (Manual) Monocytes % Monocytes % (Manual) Eosinophils % Eosinophils % (Manual) Basophils % Basophils % (Manual) Myelocytes % (Man) Promyelocytes % (Man) Blast Cells % (Manual) Nucleated RBC % Metamyelocytes Hypochromia Platelet Estimate Polychromasia Poikilocytosis Anisocytosis Microcytosis Macrocytosis Ovalocytes PT with INR INR PTT (Actin FS) Sodium 136 Potassium 5.5 H Chloride 109 H Carbon Dioxide 20 L Anion Gap 8 BUN 66.5 H Creatinine 2.5 H Est GFR (CKD-EPI)AfAm 26.71 Est GFR (CKD-EPI)NonAf 23.05 Random Glucose 119 H Calcium 8.6 Phosphorus Magnesium Total Bilirubin 0.5 AST 17 ALT 37 Alkaline Phosphatase 94 Creatine Kinase Troponin I Total Protein 6.3 L Albumin 3.4 Urine Color Dk yellow Urine Appearance Cloudy Urine pH 5.0 Ur Specific [place] 1.007 L Urine Protein 2+ H Urine Glucose (UA) Negative Urine Ketones Negative Urine Blood 3+ H Urine Nitrite Positive H Urine Bilirubin Negative Urine Urobilinogen 1.0 Ur Leukocyte Esterase Trace Urine WBC (Auto) 5 Urine RBC (Auto) 144 Urine Casts (Auto) 2 U Epithel Cells (Auto) 2.0 Urine Bacteria (Auto) 23.5 Anti-A Titer Cancelled Blood Type B POSITIVE Antibody Screen Negative 06/11/03/18 11/03/18 08:58 08:58 08:58 WBC 6.3 RBC 3.80 L Hgb 11.8 Hct 35.5 MCV 93.4 MCH 31.2 MCHC 33.4 RDW 15.3 Plt Count 150 MPV 9.3 Absolute Neuts (auto) 4.2 Neutrophils % 66.2 Neutrophils % (Manual) 67.4 Band Neutrophils % 0.0 Lymphocytes % 17.7 D Lymphocytes % (Manual) 20.4 Monocytes % 10.8 H Monocytes % (Manual) 8 Eosinophils % 4.5 Eosinophils % (Manual) 2.0 Basophils % 0.8 Basophils % (Manual) 0.0 Myelocytes % (Man) 2 Promyelocytes % (Man) 0 Blast Cells % (Manual) 0 Nucleated RBC % 0 Metamyelocytes 0 Hypochromia 0 Platelet Estimate Normal Polychromasia 0 Poikilocytosis 1+ Anisocytosis 1+ Microcytosis 1+ Macrocytosis 0 Ovalocytes 1+ PT with INR INR PTT (Actin FS) 33.6 Sodium 139 Potassium 5.4 H Chloride 110 H Carbon Dioxide 22 Anion Gap 7 L BUN 61.2 H Creatinine 2.5 H Est GFR (CKD-EPI)AfAm 26.71 Est GFR (CKD-EPI)NonAf 23.05 Random Glucose 101 Calcium 8.7 Phosphorus 4.1 Magnesium 2.2 Total Bilirubin 1.1 H AST 14 L ALT 37 Alkaline Phosphatase 93 Creatine Kinase Troponin I Total Protein 6.5 Albumin 3.4 Urine Color Urine Appearance Urine pH Ur Specific [place] Urine Protein Urine Glucose (UA) Urine Ketones Urine Blood Urine Nitrite Urine Bilirubin Urine Urobilinogen Ur Leukocyte Esterase Urine WBC (Auto) Urine RBC (Auto) Urine Casts (Auto) U Epithel Cells (Auto) Urine Bacteria (Auto) Anti-A Titer Blood Type Antibody Screen 11/03/18 10:34 WBC RBC Hgb Hct MCV MCH MCHC RDW Plt Count MPV Absolute Neuts (auto) Neutrophils % Neutrophils % (Manual) Band Neutrophils % Lymphocytes % Lymphocytes % (Manual) Monocytes % Monocytes % (Manual) Eosinophils % Eosinophils % (Manual) Basophils % Basophils % (Manual) Myelocytes % (Man) Promyelocytes % (Man) Blast Cells % (Manual) Nucleated RBC % Metamyelocytes Hypochromia Platelet Estimate Polychromasia Poikilocytosis Anisocytosis Microcytosis Macrocytosis Ovalocytes PT with INR INR PTT (Actin FS) Sodium Potassium Chloride Carbon Dioxide Anion Gap BUN Creatinine Est GFR (CKD-EPI)AfAm Est GFR (CKD-EPI)NonAf Random Glucose Calcium Phosphorus Magnesium Total Bilirubin AST ALT Alkaline Phosphatase Creatine Kinase Troponin I Total Protein Albumin Urine Color Urine Appearance Urine pH Ur Specific [place] Urine Protein Urine Glucose (UA) Urine Ketones Urine Blood Urine Nitrite Urine Bilirubin Urine Urobilinogen Ur Leukocyte Esterase Urine WBC (Auto) Urine RBC (Auto) Urine Casts (Auto) U Epithel Cells (Auto) Urine Bacteria (Auto) Anti-A Titer Blood Type B POSITIVE Antibody Screen Active Medications Generic Name Dose Route Start Last Admin Trade Name Freq PRN Reason Stop Dose Admin Acetaminophen 650 mg 11/03/18 05:02 Tylenol - PO Q4H PRN PAIN Sodium Chloride 1,000 mls @ 50 mls/hr 11/03/18 05:15 11/03/18 06:04 Normal Saline - IV 11/04/18 05:05 50 mls/hr ASDIR ANGELA Administration Levothyroxine Sodium 50 mcg 11/03/18 07:00 11/03/18 07:44 Synthroid - PO 50 mcg DAILY@0700 [facility] Administration Rosuvastatin Calcium 10 mg 11/03/18 22:00 Crestor - PO HS ANGELA Tamsulosin HCl 0.4 mg 11/04/18 08:30 Flomax - PO DAILY@0830 [facility] ASSESSMENT/PLAN: Pt is an 83 year old M with PMHx of hypothyroidism, BPH, HTN, gout, HLD, Macular degen L eye, severe scheduled for TAVR in [facility] (11/23) presenting from home after pain and hematuria from mckenzie catheter site today. Hematuria resolved. 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; hold acei -Gentle hydration -Pt with known CKD, follows Dr Coleman -Cont levothyroxine 50mcg daily -Cont crestor -renal consult appreciated Problem List - Problems (1) Hematuria Code(s): R31.9 - HEMATURIA, UNSPECIFIED (2) BRANDYN (acute kidney injury) Code(s): N17.9 - ACUTE KIDNEY FAILURE, UNSPECIFIED (3) CKD (chronic kidney disease) Code(s): N18.9 - CHRONIC KIDNEY DISEASE, UNSPECIFIED (4) Mckenzie catheter in place Code(s): Z96.0 - PRESENCE OF UROGENITAL IMPLANTS (5) Hyperkalemia Code(s): E87.5 - HYPERKALEMIA Visit type - Emergency Visit Emergency Visit: Yes ED Registration Date: 11/03/18 Care time: The patient presented to the Emergency Department on the above date and was hospitalized for further evaluation of their emergent condition. - New Patient This patient is new to me today: Yes Date on this admission: 11/03/18 - Critical Care Critical Care patient: No - Discharge Referral Referred to [facility] Med [facility] No
--- NOTE | 2018-11-03 17:18 | CON.GU ---
Consult Consult Specialty:: Hematuria urinary retention Reason for Consultation:: 83 yo male w foleynoticed gross blood in and around the catheter - History of Present Illness Chief Complaint: hematuria bph - Past Medical History Cardio/Vascular: Yes: Aortic Stenosis, HTN, Hyperlipdemia, Murmur, Other (HTN) Renal/: Yes: Renal Inusuff, BPH Endocrine: Yes: Hypothyroidism - Past Surgical History Past Surgical History: Yes: Cataract Removal, TURP - Alcohol/Substance Use Hx Alcohol Use: No - Smoking History Smoking history: Former smoker Have you smoked in the past 12 months: No If you are a former smoker, when did you quit?: 1974 - Social History Usual Living Arrangement: With Spouse ADL: Independent History of Recent Travel: No Home Medications - Allergies Allergies/Adverse Reactions: Allergies Allergy/AdvReac Type Severity Reaction Status Date / Time erythromycin base Allergy Severe Difficulty Verified 11/02/18 21:07 Breathing triamcinolone Allergy Intermediate Rash Verified 11/02/18 21:07 naproxen [From Naprosyn] Allergy Verified 11/02/18 21:07 - Home Medications Home Medications: Ambulatory Orders Allopurinol [Zyloprim -] 100 mg PO DAILY 05/20/14 Levothyroxine [Synthroid -] 50 mcg PO DAILY 05/20/14 Quinapril HCl [Accupril -] 40 mg PO DAILY 05/20/14 Silodosin [Rapaflo] 8 mg PO DAILY 05/20/14 Multivitamins [Multivit ([facility] Formulary)] 1 tab PO DAILY 07/22/14 Atorvastatin Ca [Lipitor] 40 mg PO HS 11/03/18 Finasteride 5 mg PO DAILY 11/03/18 Magnesium Oxide 420 mg PO DAILY 11/03/18 Tamsulosin HCl [Flomax] 0.4 mg PO DAILY 11/03/18 Family Disease History - Family Disease History Family Disease History: Heart Disease: Brother (Stents), CA: Father (Colon) Physical Exam- Vital Signs: Vital Signs Temperature 97.7 F 11/03/18 15:45 Pulse Rate 86 11/03/18 15:45 Respiratory Rate 20 11/03/18 15:45 Blood Pressure 123/72 11/03/18 15:45 O2 Sat by Pulse Oximetry (%) 98 11/03/18 15:45 Labs: CBC, BMP 11/03/18 08:58 11/03/18 08:58 Imaging - Results Ultrasound: Report Reviewed Problem List - Problems (1) Hematuria Assessment/Plan: 83 yo male w mckenzie now gross hematuria HCT stable Mckenzie draining well Renal sono basically unremarkable Cr elevation (2.5) not post obstructive Elective cystoscopy when urine clears Code(s): R31.9 - HEMATURIA, UNSPECIFIED
[2018-11-03] MEDS ORDERED: ROSUVASTATIN CA 10 MG TABLET (FP) PO SCH (22:00)
[2018-11-03] MEDS: ATORVASTATIN CA 40 MG TABLET (FP) PO SCH (22:28)
[2018-11-04] MEDS: LEVOTHYROXINE NA 50 MCG TABLET (FP) PO SCH (06:10)
[2018-11-04 07:21] LABS: ALBUMIN 3.1 g/dl (3.4-5.0); BILIRUBIN,TOTAL 0.4 mg/dL (0.2-1); BLOOD UREA NITROGEN 62.6 mg/dL (7-18); CALCIUM 8.2 mg/dL (8.5-10.1); CREATININE 2.4 mg/dL (0.55-1.3); TOT PROT 5.9 g/dl (6.4-8.2)
[2018-11-04 07:23] LABS: HEMATOCRIT 31.1 % (35.4-49); HEMOGLOBIN 10.5 GM/dL (11.7-16.9); MCH 31.2 pg (25.7-33.7); MCHC 33.8 g/dl (32.0-35.9); MEAN CELL VOLUME 92.2 fl (80-96); MEAN PLT VOLUME 9.1 fl (7.5-11.1); PLATELET COUNT 153 K/MM3 (134-434); RBC 3.38 M/mm3 (4.00-5.60); RDW 15.1 % (11.9-15.9); WHITE BLOOD COUNT 7.2 K/mm3 (4.0-10.0)
[2018-11-04] MEDS: TAMSULOSIN HCL 0.4 MG CAP PO SCH (09:24)
[2018-11-04] MEDS: MULTIVITAMINS (DAILY MVI) TABLET (FP) PO SCH (09:24)
[2018-11-04] MEDS: FINASTERIDE 5 MG TABLET (FP) PO SCH (09:25)
[2018-11-04] MEDS ORDERED: SODIUM CHLORIDE 250 ML IV STA (12:26)
[2018-11-04] MEDS ORDERED: SODIUM ZIRCONIUM CYCLOSILICATE (LOKELMA) 5 GM PACKET PO ONE (12:30)
--- NOTE | 2018-11-04 12:30 | PN ---
Teaching Attending Note Name of Resident: Yumi Lam ATTENDING PHYSICIAN STATEMENT I saw and evaluated the patient. I reviewed the resident's note and discussed the case with the resident. I agree with the resident's findings and plan as documented with exceptions below. SUBJECTIVE: Patient seen and examined, some pain at the urethral meatus, better. No chest pain, dizziness, dyspnea, palpitations or concerns. Feels well. OBJECTIVE: Vital Signs Period Temp Pulse Resp BP Sys/Franco Pulse Ox Last 24 Hr 97.7 F-98.6 F 73-86 18-20 89-138/45-77 96-98 Intake & Output 11/01/18 11/02/18 11/03/18 11/04/18 23:59 23:59 23:59 23:59 Intake Total 600 Output Total 1100 500 Balance -1100 100 Weight 199 lb 195 lb 11.2 oz General: lying in bed in no acute distress Chest: CTAB, no rales or wheezing Abdomen:Soft, mild suprapubic tenderness, no CVA tenderness, no voluntary or involuntary guarding or rigidity, Genital: dried blood at urethral meatus, mckenzie draining clear urine Extremities: no edema Home Medications Medication Instructions Recorded Allopurinol [Zyloprim -] 100 mg PO DAILY 05/20/14 Levothyroxine [Synthroid -] 50 mcg PO DAILY 05/20/14 Quinapril HCl [Accupril -] 40 mg PO DAILY 05/20/14 Silodosin [Rapaflo] 8 mg PO DAILY 05/20/14 Multivitamins [Multivit ([facility] 1 tab PO DAILY 07/22/14 Formulary)] Atorvastatin Ca [Lipitor] 40 mg PO HS 11/03/18 Finasteride 5 mg PO DAILY 11/03/18 Magnesium Oxide 420 mg PO DAILY 11/03/18 Tamsulosin HCl [Flomax] 0.4 mg PO DAILY 11/03/18 Active Medications Acetaminophen (Tylenol -) 650 mg PO Q4H PRN PRN Reason: PAIN Albuterol Sulfate (Ventolin 0.083% Nebulizer Soln -) 1 amp NEB Q15M ANGELA Stop: 11/04/18 12:46 Atorvastatin Calcium (Lipitor -) 40 mg PO HS [facility] Last Admin: 11/03/18 22:28 Dose: 40 mg Ceftriaxone Sodium (Rocephin -) 1,000 mg IVPUSH ONCE ONE Stop: 11/04/18 12:30 Finasteride (Proscar -) 5 mg PO DAILY [facility] Last Admin: 11/04/18 09:25 Dose: 5 mg Sodium Chloride (Normal Saline -) 250 mls @ 250 mls/hr IV ASDIR STA Stop: 11/04/18 13:25 Sodium Chloride (Normal Saline -) 1,000 mls @ 42 mls/hr IV ASDIR ANGELA Levothyroxine Sodium (Synthroid -) 50 mcg PO DAILY@0700 [facility] Last Admin: 11/04/18 06:10 Dose: 50 mcg Multivitamins/Minerals/Vitamin C (Tab-A-Vit -) 1 tab PO DAILY [facility] Last Admin: 11/04/18 09:24 Dose: 1 tab Sodium Zirconium Cyclosilicate (Lokelma) 10 gm PO ONCE ONE Stop: 11/04/18 12:31 Tamsulosin HCl (Flomax -) 0.4 mg PO DAILY@0830 [facility] Last Admin: 11/04/18 09:24 Dose: 0.4 mg Laboratory Results - last 24 hr 11/04/18 11/04/18 06:18 06:18 WBC 7.2 RBC 3.38 L Hgb 10.5 L Hct 31.1 L MCV 92.2 MCH 31.2 MCHC 33.8 RDW 15.1 Plt Count 153 MPV 9.1 Sodium 141 Potassium 6.0 H Chloride 112 H Carbon Dioxide 21 Anion Gap 7 L BUN 62.6 H Creatinine 2.4 H Est GFR (CKD-EPI)AfAm 28.06 Est GFR (CKD-EPI)NonAf 24.21 Random Glucose 92 Calcium 8.2 L Total Bilirubin 0.4 AST 15 ALT 33 Alkaline Phosphatase 81 Total Protein 5.9 L Albumin 3.1 L Microbiology 11/03/18 06:21 Urine - Urine Mckenzie Urine Culture - Preliminary Staphylococcus Latex Coag Pos Lactose Fermenting Neg Bacilli ASSESSMENT AND PLAN: 83 yom with PMHx of hypothyrooidism, BPH, HTN, gout, HLD, Macular degen L eye, CKD ?stage III, severe scheduled for TAVR in [facility] (11/23), recent 2 week admission at [place] For TAVR prep, with reported angiography, d/tyree yesterday with mckenzie admitted with pain at mckenzie site and hematuria -Pain at mckenzie site/hematuria, suspect from trauma/tugging at the mckenzie -BRANDYN on CKD ?Stage III, ?from urinary obstruction/hypolumia, ?contrast dye expsoure/ACEi -Hyperkalemia, likely from above/ACEi -BPH with urinary retention -Severe , for TAVR on 11/23/18 -HTN -HLD -Gout -Hypothyroidism Plan: K worse. EKG, lokelma 10 mg, IVF 250 x 1 (caution given ) and resume at 42 ml/ hr, albuterol nebs x 2 Repeat BMP later today. Discussed with Dr. Gong. Will follow for additional recs. Mckenzie changed, draining clear urine, pain improved. Urology input noted. Flomax. Resume rapaflo on dc. Cr unchanged, Hold ACei. Low K diet. Renal/Bladder US noted. Hb downtrending. Flank ecchymosis. Given persistent hyperkalemia, renal dysfunction and downtrending Hb, will check CT A/P Arterial duplex noted. Urine cx noted, Ceftriaxone x 1, ID input. DVTPPX SCDs given concerns for hematuria PT eval Dispo dc plan on hold given above. Plan for home Dc with services and mckenzie when improved. Plan discussed with patient and nursing in detail, all questions answered.
--- NOTE | 2018-11-04 12:59 | PN ---
Progress Note (short form) - Note Progress Note: ID CONSULT DICTATED GROSS HEMATURIA, LIKELY SECONDARY TO TRAUMA FROM FONTAINE ACUTE URINARY RETENTION + URINE C/S PROBABLE CONTAMINANT WILL OBTAIN BLOOD C/S TO R/O STAPH AUREUS BACTEREMIA NO TREATMENT FOR + URINE C/S REPEAT U/A, URINE C/S PRIOR TO CYSTO
[2018-11-04] MEDS ORDERED: CEFTRIAXONE 1 GM in DEXTROSE 5%-WATER - 50 ML IVPB ONE (13:00)
[2018-11-04] MEDS: ALBUTEROL SO4 0.083% IH SOL 2.5 MG/3 ML VIAL.NEB. NEB SCH ×2 (13:00→16:51)
[2018-11-04] MEDS ORDERED: cefTRIAXone SODIUM 1 GM VIAL ONE (13:02)
[2018-11-04] MEDS ORDERED: DEXTROSE 5%-WATER - 50 ML IVPB ONE (13:02)
[2018-11-04] MEDS: ARTIFICIAL TEARS (POLYVINYL ALCOHOL) OPTH DROPS OU PRN (13:09)
--- NOTE | 2018-11-04 13:16 | PN ---
Physical Exam: SUBJECTIVE: Patient seen and examined resting in bed nad, afebrile hemodynamically stable. hematuria resolved. mckenzie draining clear yellow urine. patient reports mild burning sensation at tip of penis when he moves OBJECTIVE: Vital Signs Period Temp Pulse Resp BP Sys/Franco Pulse Ox Last 24 Hr 97.7 F-98.6 F 73-86 18-20 89-138/45-77 96-98 GENERAL: The patient is awake, alert, and fully oriented, in no acute distress. HEAD: Normal with no signs of trauma. EYES: PERRL, extraocular movements intact, sclera anicteric, conjunctiva clear. No ptosis. ENT: moist mucous membranes. NECK: supple. LUNGS: Breath sounds equal, clear to auscultation bilaterally HEART: Regular rate and rhythm, S1, S2 ABDOMEN: Soft, nontender, nondistended, normoactive bowel sounds, no guarding, no rebound, no hepatosplenomegaly, no masses. Groin: r inguinal are bruising. penis w/o lesions, no evidence of bleeding. mckenzie in place with clear yellow urine. EXTREMITIES: 2+ b/l DP pulses, warm, well-perfused, no edema. NEUROLOGICAL: Cranial nerves II through XII grossly intact. Normal speech, gait not observed. PSYCH: Normal mood, normal affect. SKIN: Warm, dry Laboratory Results - last 24 hr 11/04/18 11/04/18 06:18 06:18 WBC 7.2 RBC 3.38 L Hgb 10.5 L Hct 31.1 L MCV 92.2 MCH 31.2 MCHC 33.8 RDW 15.1 Plt Count 153 MPV 9.1 Sodium 141 Potassium 6.0 H Chloride 112 H Carbon Dioxide 21 Anion Gap 7 L BUN 62.6 H Creatinine 2.4 H Est GFR (CKD-EPI)AfAm 28.06 Est GFR (CKD-EPI)NonAf 24.21 Random Glucose 92 Calcium 8.2 L Total Bilirubin 0.4 AST 15 ALT 33 Alkaline Phosphatase 81 Total Protein 5.9 L Albumin 3.1 L Active Medications Generic Name Dose Route Start Last Admin Trade Name Freq PRN Reason Stop Dose Admin Acetaminophen 650 mg 11/03/18 05:02 Tylenol - PO Q4H PRN PAIN Artificial Tears 1 drop 11/04/18 12:30 11/04/18 13:09 Artificial Tears OU 1 drop BID PRN Administration PAIN Atorvastatin Calcium 40 mg 11/03/18 22:00 11/03/18 22:28 Lipitor - PO 40 mg HS ANGELA Administration Finasteride 5 mg 11/04/18 10:00 11/04/18 09:25 Proscar - PO 5 mg DAILY ANGELA Administration Sodium Chloride 250 mls @ 250 mls/hr 11/04/18 12:26 11/04/18 12:34 Normal Saline - IV 11/04/18 13:25 250 mls/hr ASDIR STA Administration Sodium Chloride 1,000 mls @ 42 mls/hr 11/04/18 12:30 Normal Saline - IV ASDIR ANGELA Ceftriaxone Sodium 1 gm/ 50 mls @ 100 mls/hr 11/04/18 13:00 11/04/18 13:14 Dextrose IVPB 11/04/18 13:29 100 mls/hr ONCE ONE Administration Levothyroxine Sodium 50 mcg 11/03/18 07:00 11/04/18 06:10 Synthroid - PO 50 mcg DAILY@0700 ANGELA Administration Multivitamins/Minerals/Vitamin C 1 tab 11/04/18 10:00 11/04/18 09:24 Tab-A-Vit - PO 1 tab DAILY ANGELA Administration Tamsulosin HCl 0.4 mg 11/04/18 08:30 11/04/18 09:24 Flomax - PO 0.4 mg DAILY@0830 ANGELA Administration ASSESSMENT/PLAN: Pt is an 83 year old M with PMHx of hypothyroidism, BPH, HTN, gout, HLD, Macular degen L eye, severe scheduled for TAVR in [facility] (11/23) presenting from home after pain and hematuria from mckenzie catheter site today. Hematuria resolved. likely superficial abrasion Urinary retentin hyperkalemia brandyn vs ckd hypothyroid bph htn hld gout -renal and bladder us unremarkable -maintain mckenzie for urinary retention -continue flomax, finsteride -urology consult appreciated: elective cytoscopy -k 6, ekg no changes. 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; hold acei, continue lokelma, renal diet -Gentle hydration -Pt with known CKD, follows Dr Coleman -Cont levothyroxine 50mcg daily -Cont crestor -renal consult appreciated Problem List - Problems (1) Hematuria Code(s): R31.9 - HEMATURIA, UNSPECIFIED (2) BRANDYN (acute kidney injury) Code(s): N17.9 - ACUTE KIDNEY FAILURE, UNSPECIFIED (3) CKD (chronic kidney disease) Code(s): N18.9 - CHRONIC KIDNEY DISEASE, UNSPECIFIED (4) Mckenzie catheter in place Code(s): Z96.0 - PRESENCE OF UROGENITAL IMPLANTS (5) Hyperkalemia Code(s): E87.5 - HYPERKALEMIA Visit type - Emergency Visit Emergency Visit: Yes ED Registration Date: 11/03/18 Care time: The patient presented to the Emergency Department on the above date and was hospitalized for further evaluation of their emergent condition. - New Patient This patient is new to me today: No - Critical Care Critical Care patient: No - Discharge Referral Referred to [facility] Med P.C.: No
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
[2018-11-04] MEDS: SODIUM CHLORIDE 1,000 ML IV SCH (15:31)
--- NOTE | 2018-11-04 15:47 | PN ---
Progress Note, Physician History of Present Illness: Pt seen and examined at bedside. He is awake and alert. He has not had any hematuria. - Current Medication List Current Medications: Active Medications Acetaminophen (Tylenol -) 650 mg PO Q4H PRN PRN Reason: PAIN Artificial Tears (Artificial Tears) 1 drop OU BID PRN PRN Reason: PAIN Last Admin: 11/04/18 13:09 Dose: 1 drop Atorvastatin Calcium (Lipitor -) 40 mg PO HS [facility] Last Admin: 11/03/18 22:28 Dose: 40 mg Finasteride (Proscar -) 5 mg PO DAILY [facility] Last Admin: 11/04/18 09:25 Dose: 5 mg Sodium Chloride (Normal Saline -) 1,000 mls @ 42 mls/hr IV ASDIR [facility] Last Admin: 11/04/18 15:31 Dose: 42 mls/hr Levothyroxine Sodium (Synthroid -) 50 mcg PO DAILY@0700 [facility] Last Admin: 11/04/18 06:10 Dose: 50 mcg Multivitamins/Minerals/Vitamin C (Tab-A-Vit -) 1 tab PO DAILY [facility] Last Admin: 11/04/18 09:24 Dose: 1 tab Tamsulosin HCl (Flomax -) 0.4 mg PO DAILY@0830 [facility] Last Admin: 11/04/18 09:24 Dose: 0.4 mg - Objective Vital Signs: Vital Signs Temperature 98.6 F 11/04/18 13:33 Pulse Rate 97 H 11/04/18 13:33 Respiratory Rate 20 11/04/18 13:33 Blood Pressure 136/70 11/04/18 13:33 O2 Sat by Pulse Oximetry (%) 98 11/04/18 09:00 Constitutional: Yes: Calm Eyes: Yes: Conjunctiva Clear HENT: Yes: Atraumatic Neck: Yes: Supple Cardiovascular: Yes: S1, S2 Respiratory: Yes: CTA Bilaterally Gastrointestinal: Yes: Normal Bowel Sounds, Soft Genitourinary: Yes: Chauhan Present Musculoskeletal: Yes: WNL Neurological: Yes: Oriented Psychiatric: Yes: Oriented Labs: CBC, BMP 11/04/18 06:18 INR, PTT INR 1.08 (0.83-1.09) 11/03/18 02:20 Problem List - Problems (1) CKD (chronic kidney disease) Code(s): N18.9 - CHRONIC KIDNEY DISEASE, UNSPECIFIED (2) Hyperkalemia Code(s): E87.5 - HYPERKALEMIA Assessment/Plan Current Medications Generic Name Dose Route Start Last Admin Trade Name Freq PRN Reason Stop Dose Admin Acetaminophen 650 mg 11/03/18 05:02 Tylenol - PO Q4H PRN PAIN Artificial Tears 1 drop 11/04/18 12:30 11/04/18 13:09 Artificial Tears OU 1 drop BID PRN Administration PAIN Atorvastatin Calcium 40 mg 11/03/18 22:00 11/03/18 22:28 Lipitor - PO 40 mg HS ANGELA Administration Finasteride 5 mg 11/04/18 10:00 11/04/18 09:25 Proscar - PO 5 mg DAILY ANGELA Administration Sodium Chloride 1,000 mls @ 42 mls/hr 11/04/18 12:30 11/04/18 15:31 Normal Saline - IV 42 mls/hr ASDIR ANGELA Administration Levothyroxine Sodium 50 mcg 11/03/18 07:00 11/04/18 06:10 Synthroid - PO 50 mcg DAILY@0700 ANGELA Administration Multivitamins/Minerals/Vitamin C 1 tab 11/04/18 10:00 11/04/18 09:24 Tab-A-Vit - PO 1 tab DAILY ANGELA Administration Tamsulosin HCl 0.4 mg 11/04/18 08:30 11/04/18 09:24 Flomax - PO 0.4 mg DAILY@0830 ANGELA Administration Impression 1. CKD 2. BRANDYN 3. hyperkalemia 4. hypothyroidism 5. HLD 6. hematuria 7. BPH 8. gout Plan - renal function improving - potassium elevated, treated medically - follow up repeat labs - change fluids to 1/2 ns - low potassium diet - consider urology eval
[2018-11-04] MEDS ORDERED: SODIUM CHLORIDE 0.45% 1,000 ML IV SCH (16:00)
[2018-11-04 16:03] LABS: BLOOD UREA NITROGEN 62.6 mg/dL (7-18); CALCIUM 8.2 mg/dL (8.5-10.1); CREATININE 2.5 mg/dL (0.55-1.3); POTASSIUM 5.1 mmol/L (3.5-5.1)
[2018-11-04] MEDS: ATORVASTATIN CA 40 MG TABLET (FP) PO SCH (21:28)
[2018-11-05] MEDS: LEVOTHYROXINE NA 50 MCG TABLET (FP) PO SCH (06:41)
[2018-11-05 07:58] LABS: HEMATOCRIT 32.3 % (35.4-49); HEMOGLOBIN 10.8 GM/dL (11.7-16.9); MCHC 33.3 g/dl (32.0-35.9); MEAN CELL VOLUME 93.1 fl (80-96); MEAN PLT VOLUME 9.2 fl (7.5-11.1); RBC 3.47 M/mm3 (4.00-5.60); RDW 15.1 % (11.9-15.9); WHITE BLOOD COUNT 6.4 K/mm3 (4.0-10.0)
[2018-11-05 08:27] LABS: PLATELET COUNT 171 K/MM3 (134-434)
[2018-11-05 08:35] LABS: BLOOD UREA NITROGEN 57.7 mg/dL (7-18); CALCIUM 8.4 mg/dL (8.5-10.1); CREATININE 2.2 mg/dL (0.55-1.3); POTASSIUM 5.4 mmol/L (3.5-5.1)
[2018-11-05] MEDS: MULTIVITAMINS (DAILY MVI) TABLET (FP) PO SCH (09:30)
[2018-11-05] MEDS: FINASTERIDE 5 MG TABLET (FP) PO SCH (09:31)
[2018-11-05] MEDS: TAMSULOSIN HCL 0.4 MG CAP PO SCH (09:31)
[2018-11-05] MEDS: ARTIFICIAL TEARS (POLYVINYL ALCOHOL) OPTH DROPS OU PRN (10:45)
[2018-11-05] MEDS ORDERED: SODIUM ZIRCONIUM CYCLOSILICATE (LOKELMA) 5 GM PACKET PO ONE (11:30)
--- NOTE | 2018-11-05 11:58 | EKG ---
Test Reason : Blood Pressure : / mmHG Vent. Rate : 099 BPM Atrial Rate : 099 BPM P-R Int : 164 ms QRS Dur : 082 ms QT Int : 374 ms P-R-T Axes : 027 003 070 degrees QTc Int : 479 ms NORMAL SINUS RHYTHM NORMAL ECG WHEN COMPARED WITH ECG OF 03-NOV-2018 04:07, NO SIGNIFICANT CHANGE WAS FOUND Confirmed by KELLY LEDEZMA MD ([id number]) on 11/05/2018 11:58:18 AM Referred By: LARISA AGRAWAL Confirmed By:KELLY LEDEZMA MD
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
--- NOTE | 2018-11-05 12:59 | PN ---
Progress Note, Physician History of Present Illness: Pt seen and examined at bedside. He is awake and alert. He denies chest pain or palpitations. - Current Medication List Current Medications: Active Medications Acetaminophen (Tylenol -) 650 mg PO Q4H PRN PRN Reason: PAIN Artificial Tears (Artificial Tears) 1 drop OU BID PRN PRN Reason: PAIN Last Admin: 11/05/18 10:45 Dose: 1 drop Atorvastatin Calcium (Lipitor -) 40 mg PO HS [facility] Last Admin: 11/04/18 21:28 Dose: 40 mg Finasteride (Proscar -) 5 mg PO DAILY [facility] Last Admin: 11/05/18 09:31 Dose: 5 mg Sodium Chloride (Normal Saline -) 1,000 mls @ 42 mls/hr IV ASDIR [facility] Last Admin: 11/04/18 15:31 Dose: 42 mls/hr Sodium Chloride (1/2 Normal Saline) 1,000 mls @ 50 mls/hr IV ASDIR [facility] Stop: 11/05/18 15:49 Last Admin: 11/04/18 16:00 Dose: 50 mls/hr Levothyroxine Sodium (Synthroid -) 50 mcg PO DAILY@0700 [facility] Last Admin: 11/05/18 06:41 Dose: 50 mcg Multivitamins/Minerals/Vitamin C (Tab-A-Vit -) 1 tab PO DAILY [facility] Last Admin: 11/05/18 09:30 Dose: 1 tab Tamsulosin HCl (Flomax -) 0.4 mg PO DAILY@0830 [facility] Last Admin: 11/05/18 09:31 Dose: 0.4 mg - Objective Vital Signs: Vital Signs Temperature 98.4 F 11/05/18 11:00 Pulse Rate 97 H 11/05/18 11:00 Respiratory Rate 20 11/05/18 11:00 Blood Pressure 153/76 11/05/18 11:00 O2 Sat by Pulse Oximetry (%) 97 11/05/18 09:00 Constitutional: Yes: Calm Eyes: Yes: Conjunctiva Clear HENT: Yes: Atraumatic Neck: Yes: Supple Cardiovascular: Yes: S1, S2 Respiratory: Yes: CTA Bilaterally Gastrointestinal: Yes: Soft Genitourinary: Yes: Chauhan Present Musculoskeletal: Yes: WNL Edema: No Neurological: Yes: Oriented Psychiatric: Yes: Oriented Labs: CBC, BMP 11/05/18 06:39 11/05/18 06:39 INR, PTT INR 1.08 (0.83-1.09) 11/03/18 02:20 Problem List - Problems (1) CKD (chronic kidney disease) Code(s): N18.9 - CHRONIC KIDNEY DISEASE, UNSPECIFIED (2) Hyperkalemia Code(s): E87.5 - HYPERKALEMIA Assessment/Plan Current Medications Generic Name Dose Route Start Last Admin Trade Name Freq PRN Reason Stop Dose Admin Acetaminophen 650 mg 11/03/18 05:02 Tylenol - PO Q4H PRN PAIN Artificial Tears 1 drop 11/04/18 12:30 11/05/18 10:45 Artificial Tears OU 1 drop BID PRN Administration PAIN Atorvastatin Calcium 40 mg 11/03/18 22:00 11/04/18 21:28 Lipitor - PO 40 mg HS ANGELA Administration Finasteride 5 mg 11/04/18 10:00 11/05/18 09:31 Proscar - PO 5 mg DAILY ANGELA Administration Sodium Chloride 1,000 mls @ 42 mls/hr 11/04/18 12:30 11/04/18 15:31 Normal Saline - IV 42 mls/hr ASDIR ANGELA Administration Sodium Chloride 1,000 mls @ 50 mls/hr 11/04/18 16:00 11/04/18 16:00 1/2 Normal Saline IV 11/05/18 15:49 50 mls/hr ASDIR ANGELA Administration Levothyroxine Sodium 50 mcg 11/03/18 07:00 11/05/18 06:41 Synthroid - PO 50 mcg DAILY@0700 ANGELA Administration Multivitamins/Minerals/Vitamin C 1 tab 11/04/18 10:00 11/05/18 09:30 Tab-A-Vit - PO 1 tab DAILY ANGELA Administration Tamsulosin HCl 0.4 mg 11/04/18 08:30 11/05/18 09:31 Flomax - PO 0.4 mg DAILY@0830 ANGELA Administration Impression 1. CKD 2. BRANDYN 3. hyperkalemia 4. hypothyroidism 5. HLD 6. hematuria 7. BPH 8. gout Plan - cont to monitor renal function - will give lokelama - low potassium diet - overall potassium is improving
[2018-11-05 13:02] VITALS: BMI 28.8
[2018-11-05] MEDS: SODIUM CHLORIDE 1,000 ML IV SCH (13:36)
[2018-11-05] MEDS ORDERED: DEXTROSE 5%-WATER 100 ML IVPB ONE (17:13)
[2018-11-05] MEDS: CEFTRIAXONE 2 GM in DEXTROSE 5%-WATER 100 ML IVPB SCH (17:39)
--- NOTE | 2018-11-05 18:38 | PN ---
Progress Note, Physician History of Present Illness: AWAKE, ALERT SEATED IN BED HARD OF HEARING C/O PENILE SHAFT PAIN FROM FONTAINE AFEBRILE URINE IN FONTAINE NOW CLEAR REPEAT C/S PENDING - Current Medication List Current Medications: Active Medications Acetaminophen (Tylenol -) 650 mg PO Q4H PRN PRN Reason: PAIN Artificial Tears (Artificial Tears) 1 drop OU BID PRN PRN Reason: PAIN Last Admin: 11/05/18 10:45 Dose: 1 drop Atorvastatin Calcium (Lipitor -) 40 mg PO HS [facility] Last Admin: 11/04/18 21:28 Dose: 40 mg Finasteride (Proscar -) 5 mg PO DAILY [facility] Last Admin: 11/05/18 09:31 Dose: 5 mg Sodium Chloride (Normal Saline -) 1,000 mls @ 42 mls/hr IV ASDIR [facility] Last Admin: 11/05/18 13:36 Dose: 42 mls/hr Ceftriaxone Sodium 2 gm/ (Dextrose) 100 mls @ 100 mls/hr IVPB DAILY [facility]; Protocol Last Admin: 11/05/18 17:39 Dose: 100 mls/hr Levothyroxine Sodium (Synthroid -) 50 mcg PO DAILY@0700 [facility] Last Admin: 11/05/18 06:41 Dose: 50 mcg Multivitamins/Minerals/Vitamin C (Tab-A-Vit -) 1 tab PO DAILY [facility] Last Admin: 11/05/18 09:30 Dose: 1 tab Tamsulosin HCl (Flomax -) 0.4 mg PO DAILY@0830 [facility] Last Admin: 11/05/18 09:31 Dose: 0.4 mg - Objective Vital Signs: Vital Signs Temperature 98.4 F 11/05/18 11:00 Pulse Rate 97 H 11/05/18 11:00 Respiratory Rate 20 11/05/18 11:00 Blood Pressure 153/76 11/05/18 11:00 O2 Sat by Pulse Oximetry (%) 97 11/05/18 09:00 Constitutional: Yes: No Distress Eyes: Yes: Conjunctiva Clear Cardiovascular: Yes: Regular Rate and Rhythm, S1, S2 Respiratory: Yes: CTA Bilaterally Gastrointestinal: Yes: Normal Bowel Sounds, Soft Edema: Yes Labs: CBC, BMP 11/05/18 06:39 11/05/18 06:39 INR, PTT INR 1.08 (0.83-1.09) 11/03/18 02:20 Assessment/Plan GROSS HEMATURIA CYSTITIS ON CT AWAIT BC, REPEAT URINE C/S CEFTRIAXONE 2GM IVPB Q24H
[2018-11-05] MEDS: ATORVASTATIN CA 40 MG TABLET (FP) PO SCH (21:27)
[2018-11-06] MEDS: LEVOTHYROXINE NA 50 MCG TABLET (FP) PO SCH (06:07)
[2018-11-06 07:32] LABS: BASO % 0.8 % (0-2.0); EOS % 5.7 % (0-4.5); HEMATOCRIT 32.2 % (35.4-49); LYMPH % 19.7 % (8-40); MCH 31.1 pg (25.7-33.7); MEAN CELL VOLUME 91.4 fl (80-96); MEAN PLT VOLUME 9.1 fl (7.5-11.1); MONO % 6.8 % (3.8-10.2); PLATELET COUNT 188 K/MM3 (134-434); RBC 3.53 M/mm3 (4.00-5.60); WHITE BLOOD COUNT 5.9 K/mm3 (4.0-10.0)
[2018-11-06 07:39] LABS: BLOOD UREA NITROGEN 48.2 mg/dL (7-18); CALCIUM 8.3 mg/dL (8.5-10.1); MAGNESIUM 1.8 mg/dL (1.8-2.4); PHOSPHOROUS 3.5 mg/dL (2.5-4.9); POTASSIUM 5.2 mmol/L (3.5-5.1)
[2018-11-06] MEDS ORDERED: DEXTROSE 5%-WATER 100 ML IVPB ONE (11:10)
[2018-11-06] MEDS: TAMSULOSIN HCL 0.4 MG CAP PO SCH (11:13)
[2018-11-06] MEDS: CEFTRIAXONE 2 GM in DEXTROSE 5%-WATER 100 ML IVPB SCH (11:13)
[2018-11-06] MEDS: FINASTERIDE 5 MG TABLET (FP) PO SCH (11:13)
[2018-11-06] MEDS: MULTIVITAMINS (DAILY MVI) TABLET (FP) PO SCH (11:14)
[2018-11-06] MEDS ORDERED: SODIUM ZIRCONIUM CYCLOSILICATE (LOKELMA) 5 GM PACKET PO ONE ×2 (14:35→14:36)
--- NOTE | 2018-11-06 14:39 | PN ---
Progress Note, Physician History of Present Illness: Pt seen and examined at bedside. He is awake and alert. He denies heamturia. - Current Medication List Current Medications: Active Medications Acetaminophen (Tylenol -) 650 mg PO Q4H PRN PRN Reason: PAIN Artificial Tears (Artificial Tears) 1 drop OU BID PRN PRN Reason: PAIN Last Admin: 11/05/18 10:45 Dose: 1 drop Atorvastatin Calcium (Lipitor -) 40 mg PO HS [facility] Last Admin: 11/05/18 21:27 Dose: 40 mg Finasteride (Proscar -) 5 mg PO DAILY [facility] Last Admin: 11/06/18 11:13 Dose: 5 mg Sodium Chloride (Normal Saline -) 1,000 mls @ 42 mls/hr IV ASDIR [facility] Last Admin: 11/05/18 13:36 Dose: 42 mls/hr Ceftriaxone Sodium 2 gm/ (Dextrose) 100 mls @ 100 mls/hr IVPB DAILY [facility]; Protocol Last Admin: 11/06/18 11:13 Dose: 100 mls/hr Levothyroxine Sodium (Synthroid -) 50 mcg PO DAILY@0700 [facility] Last Admin: 11/06/18 06:07 Dose: 50 mcg Multivitamins/Minerals/Vitamin C (Tab-A-Vit -) 1 tab PO DAILY [facility] Last Admin: 11/06/18 11:14 Dose: 1 tab Sodium Zirconium Cyclosilicate (Lokelma) 10 gm PO ONCE ONE Stop: 11/06/18 14:36 Sodium Zirconium Cyclosilicate (Lokelma) 10 gm PO ONCE ONE Stop: 11/06/18 14:37 Tamsulosin HCl (Flomax -) 0.4 mg PO DAILY@0830 [facility] Last Admin: 11/06/18 11:13 Dose: 0.4 mg - Objective Vital Signs: Vital Signs Temperature 98.8 F 11/06/18 06:00 Pulse Rate 64 11/06/18 06:00 Respiratory Rate 20 11/06/18 06:00 Blood Pressure 154/74 11/06/18 06:00 O2 Sat by Pulse Oximetry (%) 96 11/05/18 21:00 Constitutional: Yes: Calm Eyes: Yes: Conjunctiva Clear HENT: Yes: Atraumatic Neck: Yes: Supple Cardiovascular: Yes: S1, S2 Respiratory: Yes: CTA Bilaterally Gastrointestinal: Yes: Soft Genitourinary: Yes: Chauhan Present. No: Hematuria Musculoskeletal: Yes: WNL Edema: No Neurological: Yes: Oriented Psychiatric: Yes: Oriented Labs: CBC, BMP 11/06/18 05:36 11/06/18 05:36 INR, PTT INR 1.08 (0.83-1.09) 11/03/18 02:20 Problem List - Problems (1) CKD (chronic kidney disease) Code(s): N18.9 - CHRONIC KIDNEY DISEASE, UNSPECIFIED (2) Hyperkalemia Code(s): E87.5 - HYPERKALEMIA Assessment/Plan Current Medications Generic Name Dose Route Start Last Admin Trade Name Freq PRN Reason Stop Dose Admin Acetaminophen 650 mg 11/03/18 05:02 Tylenol - PO Q4H PRN PAIN Artificial Tears 1 drop 11/04/18 12:30 11/05/18 10:45 Artificial Tears OU 1 drop BID PRN Administration PAIN Atorvastatin Calcium 40 mg 11/03/18 22:00 11/05/18 21:27 Lipitor - PO 40 mg HS ANGELA Administration Finasteride 5 mg 11/04/18 10:00 11/06/18 11:13 Proscar - PO 5 mg DAILY [facility] Administration Sodium Chloride 1,000 mls @ 42 mls/hr 11/04/18 12:30 11/05/18 13:36 Normal Saline - IV 42 mls/hr ASDIR ANG[facility]A Administration Ceftriaxone Sodium 2 gm/ 100 mls @ 100 mls/hr 11/05/18 16:30 11/06/18 11:13 Dextrose IVPB 100 mls/hr DAILY ANG[facility]A Administration Protocol Levothyroxine Sodium 50 mcg 11/03/18 07:00 11/06/18 06:07 Synthroid - PO 50 mcg DAILY@0700 [facility]A Administration Multivitamins/Minerals/Vitamin C 1 tab 11/04/18 10:00 11/06/18 11:14 Tab-A-Vit - PO 1 tab DAILY ANGELA Administration Sodium Zirconium Cyclosilicate 10 gm 11/06/18 14:35 Lokelma PO 11/06/18 14:36 ONCE ONE Sodium Zirconium Cyclosilicate 10 gm 11/06/18 14:36 Lokelma PO 11/06/18 14:37 ONCE ONE Tamsulosin HCl 0.4 mg 11/04/18 08:30 11/06/18 11:13 Flomax - PO 0.4 mg DAILY@0830 [facility] Administration Laboratory Tests 11/06/18 05:36 Magnesium 1.8 Impression 1. CKD 2. BRANDYN 3. hyperkalemia 4. hypothyroidism 5. HLD 6. hematuria 7. BPH 8. gout Plan - cont lokelma - potassium improving - monitor mag - overall potassium is improving - renal function is improving
--- NOTE | 2018-11-06 14:47 | PN ---
Physical Exam: SUBJECTIVE: Patient seen and examined, some pain around mckenzie site. No fevers/ chills. tolerating diet well. OBJECTIVE: Vital Signs Period Temp Pulse Resp BP Sys/Franco Pulse Ox Last 24 Hr 97.7 F-99.1 F 64-98 20-20 120-154/71-75 96 Intake & Output 11/03/18 11/04/18 11/05/18 11/06/18 23:59 23:59 23:59 23:59 Intake Total 1050 768 444 Output Total 1100 2100 2300 Balance -1100 -1050 -1532 444 Weight 195 lb 11.2 oz 195 lb GENERAL: lying in bed in no acute distress Neck: soft, supple, no JVD Chest: Few basilar rales Abdomen:soft, mild suprapubic tenderness, dried blood around urethral meatus, mckenzie draining clear urine, no CVA tenderness Extremities: no edema Psych: pleasant, coperative CVS: systolic murmur in aortic area Laboratory Results - last 24 hr 11/05/18 11/06/18 11/06/18 06:39 05:36 05:36 WBC 5.9 RBC 3.53 L Hgb 11.0 L Hct 32.2 L MCV 91.4 MCH 31.1 MCHC 34.0 RDW 15.0 Plt Count 188 MPV 9.1 Absolute Neuts (auto) 4.0 Neutrophils % 67.0 Lymphocytes % 19.7 Monocytes % 6.8 Eosinophils % 5.7 H Basophils % 0.8 Nucleated RBC % 0 Haptoglobin 134 Sodium 139 Potassium 5.2 H Chloride 110 H Carbon Dioxide 23 Anion Gap 6 L BUN 48.2 H Creatinine 2.0 H Est GFR (CKD-EPI)AfAm 34.98 Est GFR (CKD-EPI)NonAf 30.18 Random Glucose 91 Calcium 8.3 L Phosphorus 3.5 Magnesium 1.8 Active Medications Generic Name Dose Route Start Last Admin Trade Name Freq PRN Reason Stop Dose Admin Acetaminophen 650 mg 11/03/18 05:02 Tylenol - PO Q4H PRN PAIN Artificial Tears 1 drop 11/04/18 12:30 11/05/18 10:45 Artificial Tears OU 1 drop BID PRN Administration PAIN Atorvastatin Calcium 40 mg 11/03/18 22:00 11/05/18 21:27 Lipitor - PO 40 mg HS ANGELA Administration Finasteride 5 mg 11/04/18 10:00 11/06/18 11:13 Proscar - PO 5 mg DAILY [facility] Administration Sodium Chloride 1,000 mls @ 42 mls/hr 11/04/18 12:30 11/05/18 13:36 Normal Saline - IV 42 mls/hr ASDIR [facility] Administration Ceftriaxone Sodium 2 gm/ 100 mls @ 100 mls/hr 11/05/18 16:30 11/06/18 11:13 Dextrose IVPB 100 mls/hr DAILY [facility] Administration Protocol Levothyroxine Sodium 50 mcg 11/03/18 07:00 11/06/18 06:07 Synthroid - PO 50 mcg DAILY@0700 [facility] Administration Multivitamins/Minerals/Vitamin C 1 tab 11/04/18 10:00 11/06/18 11:14 Tab-A-Vit - PO 1 tab DAILY [facility] Administration Sodium Zirconium Cyclosilicate 10 gm 11/06/18 14:35 Lokelma PO 11/06/18 14:36 ONCE ONE Sodium Zirconium Cyclosilicate 10 gm 11/06/18 14:36 Lokelma PO 11/06/18 14:37 ONCE ONE Tamsulosin HCl 0.4 mg 11/04/18 08:30 11/06/18 11:13 Flomax - PO 0.4 mg DAILY@0830 [facility] Administration Microbiology 11/04/18 16:10 Urine - Urine Mckenzie Urine Culture - Preliminary Staphylococcus Latex Coag Pos 11/03/18 06:21 Urine - Urine Mckenzie Urine Culture - Final Staphylococcus Aureus Klebsiella Pneumoniae 11/04/18 15:30 Blood - Peripheral Venous Blood Culture - Preliminary NO GROWTH OBTAINED AFTER 24 HOURS, INCUBATION TO CONTINUE FOR 4 DAYS. 11/04/18 15:15 Blood - Peripheral Venous Blood Culture - Preliminary NO GROWTH OBTAINED AFTER 24 HOURS, INCUBATION TO CONTINUE FOR 4 DAYS. ASSESSMENT/PLAN: 83 yom with PMHx of hypothyrooidism, BPH, HTN, gout, HLD, Macular degen L eye, CKD ?stage III, severe scheduled for TAVR in [facility] (11/23), recent 2 week admission at [facility] For [facility] prep, with reported angiography, d/tyree yesterday with mckenzie admitted with pain at mckenzie site and hematuria -Pain at mckenzie site/hematuria, suspect from trauma/tugging at the mckenzie -BRANDYN on CKD ?Stage III, ?from urinary obstruction/hypolumia, ?contrast dye expsoure/ACEi -Hyperkalemia, likely from above/ACEi -BPH with urinary retention -Acute cystitis vs asymptomatic bacteruria -Severe , for TAVR on 11/23/18 -HTN -HLD -Gout -Hypothyroidism Plan: K improved, additional Lokelma 10 mg PO x 1. Gentle hydration, monitor volume status/renal fn. Nephrology input appreciated. ID input noted. blood cx neg so far. Urine cx noted ceftriaxone day 3 CT A/P noted. Urology input noted, flomax, resume rapaflo on dc Hold ACei. Low K diet. Renal/Bladder US noted. h/h stable. Flank ecchymosis, CT A/P neg for bleed concerns. Arterial duplex noted. DVTPPX SCDs given concerns for hematuria PT eval noted Dispo dc in 24-48 hours if renal fn/K improved and no new events. Plan discussed with patient and nursing in detail, all questions answered. Visit type - Emergency Visit Emergency Visit: Yes ED Registration Date: 11/03/18 Care time: The patient presented to the Emergency Department on the above date and was hospitalized for further evaluation of their emergent condition. - New Patient This patient is new to me today: No - Critical Care Critical Care patient: No - Discharge Referral Referred to [facility] Med P.C.: No
[2018-11-06] MEDS ORDERED: PT OWN MED DRAWER 7, Y5N ONE (17:24)
[2018-11-06] MEDS: SODIUM CHLORIDE 1,000 ML IV SCH (17:27)
[2018-11-06] MEDS: ARTIFICIAL TEARS (POLYVINYL ALCOHOL) OPTH DROPS OU PRN (21:52)
[2018-11-06] MEDS: ATORVASTATIN CA 40 MG TABLET (FP) PO SCH (21:52)
[2018-11-07] MEDS: LEVOTHYROXINE NA 50 MCG TABLET (FP) PO SCH (06:10)
[2018-11-07 07:40] LABS: BASO % 0.9 % (0-2.0); EOS % 5.4 % (0-4.5); HEMATOCRIT 33.9 % (35.4-49); HEMOGLOBIN 11.4 GM/dL (11.7-16.9); LYMPH % 16.9 % (8-40); MCH 31.2 pg (25.7-33.7); MCHC 33.8 g/dl (32.0-35.9); MEAN CELL VOLUME 92.2 fl (80-96); MEAN PLT VOLUME 8.8 fl (7.5-11.1); MONO % 6.3 % (3.8-10.2); NEUT % 70.5 % (42.8-82.8); RBC 3.67 M/mm3 (4.00-5.60); RDW 15.4 % (11.9-15.9); WHITE BLOOD COUNT 7.9 K/mm3 (4.0-10.0)
[2018-11-07 08:10] LABS: ALBUMIN 3.6 g/dl (3.4-5.0); BILIRUBIN,TOTAL 0.3 mg/dL (0.2-1); BLOOD UREA NITROGEN 45.8 mg/dL (7-18); CALCIUM 8.6 mg/dL (8.5-10.1); CREATININE 1.8 mg/dL (0.55-1.3); MAGNESIUM 1.8 mg/dL (1.8-2.4); POTASSIUM 5.3 mmol/L (3.5-5.1); TOT PROT 6.9 g/dl (6.4-8.2)
[2018-11-07 08:49] LABS: PLATELET COUNT 218 K/MM3 (134-434)
[2018-11-07] MEDS ORDERED: DEXTROSE 5%-WATER 100 ML IVPB ONE (09:55)
[2018-11-07] MEDS: TAMSULOSIN HCL 0.4 MG CAP PO SCH (10:05)
[2018-11-07] MEDS: MULTIVITAMINS (DAILY MVI) TABLET (FP) PO SCH (10:05)
[2018-11-07] MEDS: FINASTERIDE 5 MG TABLET (FP) PO SCH (10:05)
[2018-11-07] MEDS: CEFTRIAXONE 2 GM in DEXTROSE 5%-WATER 100 ML IVPB SCH (10:05)
[2018-11-07 11:21] LABS: ANISOCYTOSIS 0; HELMET CELLS 0; HOWELL-JOLLY BODIES 0; MACROCYTOSIS 0; OVALOCYTE 0; PLATELET ESTIMATE NORMAL; ROULEAU 0; SICKELED CELLS 0; TARGET CELLS 0; TEAR DROP CELLS 0; TOXIC GRANULATION 0
--- NOTE | 2018-11-07 11:26 | PN ---
Physical Exam: SUBJECTIVE: Patient seen and examined, feels well, still discomfort around mckenzie site. But no new complaints. OBJECTIVE: Vital Signs Period Temp Pulse Resp BP Sys/Franco Pulse Ox Last 24 Hr 97.6 F-98.6 F 77-89 18-20 150-158/68-90 98 GENERAL: lying in bed in no acute distress Neck: soft, supple, no JVD Chest: Few basilar rales Abdomen:soft, mild suprapubic tenderness, dried blood around urethral meatus, mckenzie draining clear urine, no CVA tenderness Extremities: no edema Psych: pleasant, coperative CVS: systolic murmur in aortic area Laboratory Results - last 24 hr 11/07/18 11/07/18 05:28 05:28 WBC 7.9 RBC 3.67 L Hgb 11.4 L Hct 33.9 L MCV 92.2 MCH 31.2 MCHC 33.8 RDW 15.4 Plt Count 218 MPV 8.8 Absolute Neuts (auto) 5.6 Neutrophils % 70.5 Lymphocytes % 16.9 Monocytes % 6.3 Eosinophils % 5.4 H Basophils % 0.9 Nucleated RBC % 0 Sodium 138 Potassium 5.3 H Chloride 108 H Carbon Dioxide 24 Anion Gap 6 L BUN 45.8 H Creatinine 1.8 H Est GFR (CKD-EPI)AfAm 39.74 Est GFR (CKD-EPI)NonAf 34.29 Random Glucose 101 Calcium 8.6 Magnesium 1.8 Total Bilirubin 0.3 AST 29 ALT 60 Alkaline Phosphatase 92 Total Protein 6.9 Albumin 3.6 Active Medications Generic Name Dose Route Start Last Admin Trade Name Freq PRN Reason Stop Dose Admin Acetaminophen 650 mg 11/03/18 05:02 Tylenol - PO Q4H PRN PAIN Artificial Tears 1 drop 11/04/18 12:30 11/06/18 21:52 Artificial Tears OU 1 drop BID PRN Administration PAIN Atorvastatin Calcium 40 mg 11/03/18 22:00 11/06/18 21:52 Lipitor - PO 40 mg HS ANGELA Administration Finasteride 5 mg 11/04/18 10:00 11/07/18 10:05 Proscar - PO 5 mg DAILY ANG[facility]A Administration Sodium Chloride 1,000 mls @ 42 mls/hr 11/04/18 12:30 11/06/18 17:27 Normal Saline - IV 42 mls/hr ASDIR ANGELA Administration Ceftriaxone Sodium 2 gm/ 100 mls @ 100 mls/hr 11/05/18 16:30 11/07/18 10:05 Dextrose IVPB 100 mls/hr DAILY [facility] Administration Protocol Levothyroxine Sodium 50 mcg 11/03/18 07:00 11/07/18 06:10 Synthroid - PO 50 mcg DAILY@0700 ANGELA Administration Multivitamins/Minerals/Vitamin C 1 tab 11/04/18 10:00 11/07/18 10:05 Tab-A-Vit - PO 1 tab DAILY [facility] Administration Sodium Zirconium Cyclosilicate 10 gm 11/07/18 10:45 Lokelma PO DAILY ANGELA Tamsulosin HCl 0.4 mg 11/04/18 08:30 11/07/18 10:05 Flomax - PO 0.4 mg DAILY@0830 [facility]A Administration Microbiology 11/04/18 15:30 Blood - Peripheral Venous Blood Culture - Preliminary NO GROWTH OBTAINED AFTER 48 HOURS, INCUBATION TO CONTINUE FOR 3 DAYS. 11/04/18 15:15 Blood - Peripheral Venous Blood Culture - Preliminary NO GROWTH OBTAINED AFTER 48 HOURS, INCUBATION TO CONTINUE FOR 3 DAYS. 11/04/18 16:10 Urine - Urine Mckenzie Urine Culture - Preliminary Staphylococcus Latex Coag Pos 11/03/18 06:21 Urine - Urine Mckenzie Urine Culture - Final Staphylococcus Aureus Klebsiella Pneumoniae ASSESSMENT/PLAN: 83 yom with PMHx of hypothyrooidism, BPH, HTN, gout, HLD, Macular degen L eye, CKD ?stage III, severe scheduled for TAVR in [facility] (11/23), recent 2 week admission at [facility] For T[facility]R prep, with reported angiography, d/tyree yesterday with mckenzie admitted with pain at mckenzie site and hematuria -Pain at mckenzie site/hematuria, suspect from trauma/tugging at the mckenzie -BRANDYN on CKD ?Stage III, ?from urinary obstruction/hypolumia, ?contrast dye expsoure/ACEi -Hyperkalemia, likely from above/ACEi -BPH with urinary retention -Acute cystitis vs asymptomatic bacteruria -Severe , for TAVR on 11/23/18 -HTN -HLD -Gout -Hypothyroidism Plan: Overall K unchanged, start lokelma, discuss with renal. Gentle hydration, monitor volume status/renal fn. ID input noted. blood cx neg so far. Urine cx noted ceftriaxone day 4 CT A/P noted. Urology input noted, elective cystoscopy when improved, flomax, resume rapaflo on dc Hold ACei. Low K diet. Renal/Bladder US noted. h/h stable. Flank ecchymosis, CT A/P neg for bleed concerns. Arterial duplex noted. DVTPPX SCDs given concerns for hematuria PT eval noted Dispo dc in 24-48 hours if renal fn/K improved and no new events. Plan discussed with patient and nursing in detail, all questions answered. Visit type - Emergency Visit Emergency Visit: Yes ED Registration Date: 11/03/18 Care time: The patient presented to the Emergency Department on the above date and was hospitalized for further evaluation of their emergent condition. - New Patient This patient is new to me today: No - Critical Care Critical Care patient: No - Discharge Referral Referred to [facility] Med P.C.: No
[2018-11-07 13:16] LABS: CALCIUM 9.1 mg/dL (8.5-10.1); POTASSIUM 5.3 mmol/L (3.5-5.1)
[2018-11-07] MEDS ORDERED: SODIUM ZIRCONIUM CYCLOSILICATE (LOKELMA) 5 GM PACKET PO ONE (14:35)
--- NOTE | 2018-11-07 16:48 | PN ---
Progress Note, Physician History of Present Illness: Pt seen and examined at bedside. He is awake and alert. He feels well. He denies shortness of breath. - Current Medication List Current Medications: Active Medications Acetaminophen (Tylenol -) 650 mg PO Q4H PRN PRN Reason: PAIN Artificial Tears (Artificial Tears) 1 drop OU BID PRN PRN Reason: PAIN Last Admin: 11/06/18 21:52 Dose: 1 drop Atorvastatin Calcium (Lipitor -) 40 mg PO HS [facility] Last Admin: 11/06/18 21:52 Dose: 40 mg Finasteride (Proscar -) 5 mg PO DAILY [facility] Last Admin: 11/07/18 10:05 Dose: 5 mg Sodium Chloride (Normal Saline -) 1,000 mls @ 42 mls/hr IV ASDIR [facility] Last Admin: 11/06/18 17:27 Dose: 42 mls/hr Cefazolin Sodium 1 gm/ (Dextrose) 50 mls @ 100 mls/hr IVPB BID [facility] Levothyroxine Sodium (Synthroid -) 50 mcg PO DAILY@0700 [facility] Last Admin: 11/07/18 06:10 Dose: 50 mcg Multivitamins/Minerals/Vitamin C (Tab-A-Vit -) 1 tab PO DAILY [facility] Last Admin: 11/07/18 10:05 Dose: 1 tab Sodium Zirconium Cyclosilicate (Lokelma) 10 gm PO DAILY [facility] Tamsulosin HCl (Flomax -) 0.4 mg PO DAILY@0830 [facility] Last Admin: 11/07/18 10:05 Dose: 0.4 mg - Objective Vital Signs: Vital Signs Temperature 98.1 F 11/07/18 15:10 Pulse Rate 92 H 11/07/18 15:10 Respiratory Rate 20 11/07/18 15:10 Blood Pressure 147/75 11/07/18 15:10 O2 Sat by Pulse Oximetry (%) 98 11/06/18 21:00 Constitutional: Yes: Calm Eyes: Yes: Conjunctiva Clear HENT: Yes: Atraumatic Neck: Yes: Supple Cardiovascular: Yes: S1, S2 Respiratory: Yes: CTA Bilaterally Gastrointestinal: Yes: Normal Bowel Sounds, Soft Genitourinary: Yes: Chauhan Present Musculoskeletal: Yes: WNL Extremities: Yes: WNL Edema: No Neurological: Yes: Oriented Psychiatric: Yes: Oriented Labs: CBC, BMP 11/07/18 05:28 11/07/18 12:28 INR, PTT INR 1.08 (0.83-1.09) 11/03/18 02:20 Problem List - Problems (1) CKD (chronic kidney disease) Code(s): N18.9 - CHRONIC KIDNEY DISEASE, UNSPECIFIED (2) Hyperkalemia Code(s): E87.5 - HYPERKALEMIA Assessment/Plan Current Medications Generic Name Dose Route Start Last Admin Trade Name Freq PRN Reason Stop Dose Admin Acetaminophen 650 mg 11/03/18 05:02 Tylenol - PO Q4H PRN PAIN Artificial Tears 1 drop 11/04/18 12:30 11/06/18 21:52 Artificial Tears OU 1 drop BID PRN Administration PAIN Atorvastatin Calcium 40 mg 11/03/18 22:00 11/06/18 21:52 Lipitor - PO 40 mg HS ANGELA Administration Finasteride 5 mg 11/04/18 10:00 11/07/18 10:05 Proscar - PO 5 mg DAILY ANGELA Administration Sodium Chloride 1,000 mls @ 42 mls/hr 11/04/18 12:30 11/06/18 17:27 Normal Saline - IV 42 mls/hr ASDIR ANGELA Administration Cefazolin Sodium 1 gm/ 50 mls @ 100 mls/hr 11/07/18 22:00 Dextrose IVPB BID [facility]A Levothyroxine Sodium 50 mcg 11/03/18 07:00 11/07/18 06:10 Synthroid - PO 50 mcg DAILY@0700 ANG[facility]A Administration Multivitamins/Minerals/Vitamin C 1 tab 11/04/18 10:00 11/07/18 10:05 Tab-A-Vit - PO 1 tab DAILY ANG[facility]A Administration Sodium Zirconium Cyclosilicate 10 gm 11/07/18 10:45 Lokelma PO DAILY ANG[facility]A Tamsulosin HCl 0.4 mg 11/04/18 08:30 11/07/18 10:05 Flomax - PO 0.4 mg DAILY@0830 ANG[facility]A Administration Impression 1. CKD 2. BRANDYN 3. hyperkalemia 4. hypothyroidism 5. HLD 6. hematuria 7. BPH 8. gout Plan - cont to monitor potassium - monitor renal function - low potassium diet - will need urology follow up after discharge - renal function is improving
[2018-11-07] MEDS: SODIUM ZIRCONIUM CYCLOSILICATE (LOKELMA) 5 GM PACKET PO SCH (17:14)
[2018-11-07] MEDS: SODIUM CHLORIDE 1,000 ML IV SCH (17:17)
[2018-11-07] MEDS ORDERED: ceFAZolin SODIUM 1 GM VIAL ONE (21:23)
[2018-11-07] MEDS ORDERED: DEXTROSE 5%-WATER - 50 ML IVPB ONE (21:23)
[2018-11-07] MEDS: ATORVASTATIN CA 40 MG TABLET (FP) PO SCH (21:25)
[2018-11-07] MEDS: CEFAZOLIN 1 GM in DEXTROSE 5%-WATER - 50 ML IVPB SCH (21:25)
[2018-11-08] MEDS: LEVOTHYROXINE NA 50 MCG TABLET (FP) PO SCH (06:01)
[2018-11-08 08:09] LABS: BLOOD UREA NITROGEN 41.8 mg/dL (7-18); CALCIUM 8.5 mg/dL (8.5-10.1); CREATININE 1.8 mg/dL (0.55-1.3); MAGNESIUM 1.7 mg/dL (1.8-2.4); PHOSPHOROUS 3.2 mg/dL (2.5-4.9); POTASSIUM 4.8 mmol/L (3.5-5.1)
[2018-11-08] MEDS ORDERED: DEXTROSE 5%-WATER - 50 ML IVPB ONE (09:56)
[2018-11-08] MEDS ORDERED: ceFAZolin SODIUM 1 GM VIAL ONE (09:56)
[2018-11-08] MEDS ORDERED: PT OWN MED DRAWER 7, Y5N ONE (09:56)
[2018-11-08] MEDS: CEFAZOLIN 1 GM in DEXTROSE 5%-WATER - 50 ML IVPB SCH (09:58)
[2018-11-08] MEDS: TAMSULOSIN HCL 0.4 MG CAP PO SCH (09:58)
[2018-11-08] MEDS: SODIUM ZIRCONIUM CYCLOSILICATE (LOKELMA) 5 GM PACKET PO SCH (09:58)
[2018-11-08] MEDS: MULTIVITAMINS (DAILY MVI) TABLET (FP) PO SCH (09:59)
[2018-11-08] MEDS: FINASTERIDE 5 MG TABLET (FP) PO SCH (09:59)
[2018-11-08 15:08] VITALS: BP 158/101; PULSE 97; TEMP 98.9
--- NOTE | 2018-11-08 16:47 | PN ---
Progress Note, Physician History of Present Illness: Pt seen and examined at bedside. He is awake and alert. He failed the voiding trail today and magaly was put back. - Current Medication List Current Medications: Active Medications Acetaminophen (Tylenol -) 650 mg PO Q4H PRN PRN Reason: PAIN Artificial Tears (Artificial Tears) 1 drop OU BID PRN PRN Reason: PAIN Last Admin: 11/06/18 21:52 Dose: 1 drop Atorvastatin Calcium (Lipitor -) 40 mg PO HS [facility] Last Admin: 11/07/18 21:25 Dose: 40 mg Cefuroxime Axetil (Ceftin -) 250 mg PO BID [facility] Finasteride (Proscar -) 5 mg PO DAILY [facility] Last Admin: 11/08/18 09:59 Dose: 5 mg Sodium Chloride (Normal Saline -) 1,000 mls @ 42 mls/hr IV ASDIR [facility] Last Admin: 11/07/18 17:17 Dose: 42 mls/hr Levothyroxine Sodium (Synthroid -) 50 mcg PO DAILY@0700 [facility] Last Admin: 11/08/18 06:01 Dose: 50 mcg Multivitamins/Minerals/Vitamin C (Tab-A-Vit -) 1 tab PO DAILY [facility] Last Admin: 11/08/18 09:59 Dose: 1 tab Sodium Zirconium Cyclosilicate (Lokelma) 10 gm PO DAILY [facility] Last Admin: 11/08/18 09:58 Dose: 10 gm Tamsulosin HCl (Flomax -) 0.4 mg PO DAILY@0830 [facility] Last Admin: 11/08/18 09:58 Dose: 0.4 mg - Objective Vital Signs: Vital Signs Temperature 98.9 F 11/08/18 15:06 Pulse Rate 97 H 11/08/18 15:06 Respiratory Rate 20 11/08/18 15:06 Blood Pressure 158/101 H 11/08/18 15:06 O2 Sat by Pulse Oximetry (%) 97 11/08/18 09:00 Constitutional: Yes: Calm Eyes: Yes: Conjunctiva Clear HENT: Yes: Atraumatic Neck: Yes: Supple Cardiovascular: Yes: S1, S2 Respiratory: Yes: CTA Bilaterally Gastrointestinal: Yes: Soft Genitourinary: Yes: Mckenzie Present Musculoskeletal: Yes: WNL Edema: No Neurological: Yes: Oriented Psychiatric: Yes: Oriented Labs: CBC, BMP 11/07/18 05:28 11/08/18 06:51 INR, PTT INR 1.08 (0.83-1.09) 11/03/18 02:20 Problem List - Problems (1) CKD (chronic kidney disease) Code(s): N18.9 - CHRONIC KIDNEY DISEASE, UNSPECIFIED (2) Hyperkalemia Code(s): E87.5 - HYPERKALEMIA Assessment/Plan Current Medications Generic Name Dose Route Start Last Admin Trade Name Freq PRN Reason Stop Dose Admin Acetaminophen 650 mg 11/03/18 05:02 Tylenol - PO Q4H PRN PAIN Artificial Tears 1 drop 11/04/18 12:30 11/06/18 21:52 Artificial Tears OU 1 drop BID PRN Administration PAIN Atorvastatin Calcium 40 mg 11/03/18 22:00 11/07/18 21:25 Lipitor - PO 40 mg HS ANGELA Administration Cefuroxime Axetil 250 mg 11/08/18 22:00 Ceftin - PO BID ANGELA Finasteride 5 mg 11/04/18 10:00 11/08/18 09:59 Proscar - PO 5 mg DAILY ANG[facility]A Administration Sodium Chloride 1,000 mls @ 42 mls/hr 11/04/18 12:30 11/07/18 17:17 Normal Saline - IV 42 mls/hr ASDIR ANGELA Administration Levothyroxine Sodium 50 mcg 11/03/18 07:00 11/08/18 06:01 Synthroid - PO 50 mcg DAILY@0700 ANG[facility]A Administration Multivitamins/Minerals/Vitamin C 1 tab 11/04/18 10:00 11/08/18 09:59 Tab-A-Vit - PO 1 tab DAILY ANGELA Administration Sodium Zirconium Cyclosilicate 10 gm 11/07/18 10:45 11/08/18 09:58 Lokelma PO 10 gm DAILY ANGELA Administration Tamsulosin HCl 0.4 mg 11/04/18 08:30 11/08/18 09:58 Flomax - PO 0.4 mg DAILY@0830 ANGELA Administration Impression 1. CKD 2. BRANDYN 3. hyperkalemia 4. hypothyroidism 5. HLD 6. hematuria 7. BPH 8. gout Plan - potassium improved - mckenzie replaced - will need urology follow up - will follow with Dr Cota - low potassium diet - renal function is improving
--- NOTE | 2018-11-08 18:50 | DS ---
Physical Exam: SUBJECTIVE: Patient seen and examined, no complaints, doing well. OBJECTIVE: Vital Signs Period Temp Pulse Resp BP Sys/Franco Pulse Ox Last 24 Hr 98 F-98.9 F 73-97 20-20 144-159/77-101 97-97 Intake & Output 11/05/18 11/06/18 11/07/18 11/08/18 23:59 23:59 23:59 23:59 Intake Total 768 644 644 494 Output Total 2300 1900 2400 800 Balance -7607 -4210 -5036 -306 Weight 195 lb PHYSICAL EXAM GENERAL: lying in bed in no acute distress Neck: soft, supple, no JVD Chest: Few basilar rales Abdomen:soft, mild suprapubic tenderness, dried blood around urethral meatus, mckenzie draining clear urine, no CVA tenderness Extremities: no edema Psych: pleasant, coperative CVS: systolic murmur in aortic area LABS Laboratory Results - last 24 hr 11/08/18 06:51 Sodium 140 Potassium 4.8 Chloride 110 H Carbon Dioxide 25 Anion Gap 5 L BUN 41.8 H Creatinine 1.8 H Est GFR (CKD-EPI)AfAm 39.74 Est GFR (CKD-EPI)NonAf 34.29 Random Glucose 102 Calcium 8.5 Phosphorus 3.[address] A/P: No prior abdomen/pelvis CT studies are available at this facility for direct comparison. Diffuse urinary bladder wall thickening is noted as well as associated perivesicle soft tissue stranding/edema suggestive of acute cystitis. Neoplastic disease is probably less likely. A very small amount of fluid is seen within the urinary bladder lumen. A Mckenzie catheter is noted in place. At least moderate prostate enlargement is seen. No urinary tract calculus is seen. There is no hydronephrosis. The right kidney is mildly atrophic measuring 8.7 cm in length. The left kidney measures 10.7 cm. Small left renal upper pole cortical cyst. Mild chronic bilateral perinephric soft tissue stranding is noted. Nonspecific subcutaneous edema is seen along the right inguinal region laterally. No evidence of retroperitoneal hematoma. A stable 1 cm right adrenal adenoma is noted in comparison to a chest CT study of 08/29/2010. The left adrenal gland, liver, spleen, pancreas, and gallbladder demonstrate no discrete noncontrast pathology. There is no aortic aneurysm. No obvious lymphadenopathy is seen. Colonic diverticulosis is noted without evidence of acute diverticulitis. No gross noncontrast small bowel pathology is identified. The appendix is not definitely visualized however there are no indirect CT signs of acute appendicitis. No evidence of pneumoperitoneum, free intraperitoneal fluid or bowel obstruction. The visualized osseous structures demonstrate no gross acute abnormality. Impression: Diffuse urinary bladder wall thickening is seen in association with perivesical soft tissue stranding/ edema suggestive of acute cystitis. Neoplastic disease is probably less likely. Clinical/ laboratory correlation is suggested. Mckenzie catheter in place. There is at least moderate prostate enlargement. No CT evidence of urolithiasis or hydronephrosis. Mild right renal atrophy. Nonspecific subcutaneous edema is noted along the right inguinal region laterally. Correlate clinically. Stable 1 cm right adrenal adenoma. Renal US: Renal ultrasound Compared to prior examination dated 03/31/2018 The right kidney measures 10.5 cm in sagittal length. It appears almost isoechoic to the adjacent liver parenchyma. There is a small echogenic density in its upper pole measuring 6 mm possibly a nonobstructing stone without evidence of hydronephrosis. Previously visualized small right renal upper pole simple cyst is again seen without gross interval change. Left kidney measures 10.2 cm in sagittal length without gross evidence of renal stones or hydronephrosis. Both kidneys demonstrate bilateral central renal sinus lipomatosis a usual finding for this age. No gross solid mass lesions identified. Visualized portion of the liver appears unremarkable IMPRESSION: Possible nonobstructing tiny right renal upper pole stone. Small right renal upper/midportion simple cyst again seen without interval change. There is no gross evidence of hydronephrosis, bilaterally. Normal color Doppler flow in the renal hilum, bilaterally Bladder US: Evaluation of the urinary bladder demonstrates thickening of the bladder wall. The ureteral jets were visualized. A pre-void bladder volume of 103 cc was calculated. A Mckenzie catheter is noted within the bladder and therefore assessment of postvoid residual could not be made. The prostate gland is enlarged. A total prostate volume of 60.2 cc was calculated. IMPRESSION: 1. Thick-walled urinary bladder. 2. Prostatic enlargement. Please see above discussion. LE soft tissue Ultrasound: The patient is S/P recent cardiac catheterization with right femoral arteriotomy. There is no evidence of a fluid collection in the right inguinal region suspicious for a post arteriotomy hematoma or pseudoaneurysm. Triphasic arterial flow is documented within the common femoral artery. Flow is also noted within the common femoral vein on Doppler imaging. IMPRESSION: No evidence of post arteriotomy hematoma or pseudoaneurysm. Microbiology 11/04/18 15:15 Blood - Peripheral Venous Blood Culture - Preliminary NO GROWTH OBTAINED AFTER 96 HOURS, INCUBATION TO CONTINUE FOR 1 DAYS. 11/04/18 15:30 Blood - Peripheral Venous Blood Culture - Preliminary NO GROWTH OBTAINED AFTER 96 HOURS, INCUBATION TO CONTINUE FOR 1 DAYS. 11/04/18 16:10 Urine - Urine Mckenzie Urine Culture - Final Staphylococcus Aureus 11/03/18 06:21 Urine - Urine Mckenzie Urine Culture - Final Staphylococcus Aureus Klebsiella Pneumoniae HOSPITAL COURSE: Date of Admission:11/03/18 Date of Discharge: 11/08/18 Minutes to complete discharge: 45 Discharge Summary Reason For Visit: ACUTE KIDNEY INJURY Hospital Course: 83 yom with PMHx of hypothyrooidism, BPH, HTN, gout, HLD, Macular degen L eye, CKD ?stage III, severe scheduled for TAVR in [facility] (11/23), recent 2 week admission at [place] For TAVR prep, with reported angiography, discharged from [facility] on his way, had worsening discomfort from mckenzie, reportedly jumped in pain and tugged, came to ED with hematuria. His mckenzie catheter was changed. His hematuria was likely from trauma, it resolved. He was seen by urology and advised outpatient elective cystoscopy. He was noted with BRANDYN and hyperkalemia. He was seen by nephrology and his ACEi was held. He received IV hydration, multiple doses of Lokelma and was placed on low potassium diet. His potassium normalized and renal function improved. He had renal/bladder US and CT A/P as above. He has Urine cx from first mckenzie showing MSSA/Klebsiella, his cultures from repeat mckenzie showed MSSA. His CT A/P suggested cystitis. ID was consulted, he was placed on ceftriaxone and will be transitioned to cefuroxime for additional 10 days. He was also informed that he may need antibiotics prior to any urological procedure. He was also noted with flank ecchymosis from recent femoral cath, he had duplex and CT A/P neg for concerns and his h/h stayed stable. His SBP was noted in 130s-150s range and after discussion with cardiology, decision was made to avoid starting patient on new anti-hypertensive given his severe with impending intervention. He failed voiding trial and will be discharged home with mckenzie and outpatient urology follow up. Condition: Stable - Instructions Diet, Activity, Other Instructions: You were admitted with blood from mckenzie which was likely related to pulling at the mckenzie. You had your mckenzie changed and no further bleeding was noted. Your kidney function was more abnormal that usual and your potassium levels were high. 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 You were seen by urologist. Your mckenzie was removed for a short period but you continued to retain urine and it has been placed back in . MEDICATIONS: Antibiotic Cefuroxime 250 mg twice daily for 10 days. STOP YOUR QUINAPRIL. Continue other medications as before. INSTRUCTIONS: Low potassium diet. Routine mckenzie care. Please avoid pulling or tugging at it. Please note that your BP medication Quinapril has been discontinued for now as it can increase potassium levels. You are advised to monitor your BP daily at home for now and maintain a diary. Given your aortic valve abnormality, it is very important to avoid low BP as discussed with your cytotechnologist supervisor. If you notice your BP is persistently elevated 160/100, please call your cytotechnologist supervisor to discuss further plan. PLEASE NOTE THAT YOU MAY REQUIRE ANTIBIOTIC COVERAGE BEFORE ANY PROCEDURES TO COVER FOR BACTERIA CALL 'MSSA'. PLEASE MAKE SURE YOUR UROLOGIST IS AWARE OF THE SAME. irrigate mckenzie as needed with VNS (inject 20 cc Normal Saline via syringe in the mckenzie and withdraw back, if resistance or pain, notify urologist or come to ED) FOLLOW UP: Urologist follow up in 1 week to discuss mckenzie care and further procedures( Please note about possible antibiotic need before the procedure as mentioned above) Follow up with Dr. Antonio in 1 week Follow up with Dr. Reyez in 1 week Continue follow up [facility] for further intervention with your valve. If you notice fevers, chills, worsening breathing, trouble with mckenzie, blood in mckenzie, mckenzie dislodgement or any new concerns, please call 911 or come to the ED. Referrals: Victor Manuel Coleman MD [Staff Physician] - Luis Antonio MD [Staff Physician] - Ruben Reyez MD [Staff Physician] - Disposition: VNS/HOME HEALTH CARE - Home Medications Comprehensive Discharge Medication List: Ambulatory Orders Allopurinol [Zyloprim -] 100 mg PO DAILY 05/20/14 Levothyroxine [Synthroid -] 50 mcg PO DAILY 05/20/14 Silodosin [Rapaflo] 8 mg PO DAILY 05/20/14 Multivitamins [Multivit ([facility] Formulary)] 1 tab PO DAILY 07/22/14 Atorvastatin Ca [Lipitor] 40 mg PO HS 11/03/18 Finasteride 5 mg PO DAILY 11/03/18 Magnesium Oxide 420 mg PO DAILY 11/03/18 Tamsulosin HCl [Flomax] 0.4 mg PO DAILY 11/03/18 Cefuroxime Axetil [Cefuroxime] 250 mg PO BID 10 Days #20 tablet 11/08/18 This patient is new to me today: No Emergency Visit: Yes ED Registration Date: 11/03/18 Care time: The patient presented to the Emergency Department on the above date and was hospitalized for further evaluation of their emergent condition. Critical Care patient: No - Discharge Referral Referred to [facility] Med P.C.: No
[2018-11-08] MEDS ORDERED: CEFUROXIME AXETIL 250 MG TABLET PO SCH (22:00)
== END 2018-11-08 17:25 | disposition home health service (06) | DRG 699 ==
LOC: JER 20:53 → JERBED 11-03 03:45 → J7W 11-03 15:31
PROVIDERS: ADMIT Internal Medicine; ATTEND Hospitalist
DX: T83.028A Displacement of other urinary catheter, initial encounter (principal); N17.9 Acute kidney failure, unspecified; M10.9 Gout, unspecified; H35.30 Unspecified macular degeneration; I12.9 Hypertensive chronic kidney disease with stage 1 through stage 4 chronic kidney disease, or unspecified chronic kidney disease; N18.3 Chronic kidney disease, stage 3 (moderate); Y84.6 Urinary catheterization as the cause of abnormal reaction of the patient, or of later complication, without mention of misadventure at the time of the procedure; D64.9 Anemia, unspecified; E03.9 Hypothyroidism, unspecified; E87.5 Hyperkalemia; E86.0 Dehydration; N40.1 Benign prostatic hyperplasia with lower urinary tract symptoms; R33.8 Other retention of urine; R31.0 Gross hematuria
CPT/HCPCS: 36415; 74176-TC; 76775-TC; 76856-TC; 76882-TC-RT-FY; 80048; 80053; 81003; 82550; 83010; 83615; 83735; 84100; 84484; 85025; 85027; 85610; 85730; 86850; 86900; 86901; 87040; 87086; 87186; 93005; 93010; 94640; 97116-GP; 97161-GP; 99285-25; J7030

== ENCOUNTER 2018-11-18 22:12 | Emergency (ER) | payer OTHER ==
[2018-11-18 22:18] VITALS: BP 139/63; PULSE 92
--- NOTE | 2018-11-18 22:32 | PDOC ---
History of Present Illness <Samina Ness - Last Filed: 11/19/18 01:02> - History of Present Illness Initial Comments: Mr. Green is an 83M with PMH of BPH, HTN, HLD, thyroid disease, and aortic valve disease, presenting with blood in Fontaine catheter. He reports that he saw his urologist Dr. Mojica today for placement of a urinary catheter around 3pm today. Reports that he is scheduled for a TAVR on Thursday and has a Fontaine because of urinary retention. Around 9pm today he noticed some blood tinged urine in his catheter. Reports mild discomfort at the tip of the penis. Denies chest pain, abdominal pain. Denies fever, denies cough, denies shortness of breath. <Gilbert Calloway - Last Filed: 11/19/18 01:33> - General Chief Complaint: Urinary Problem Stated Complaint: FONTAINE PROBLEM Time Seen by Provider: 11/18/18 22:26 Past History <Samina Ness - Last Filed: 11/19/18 01:02> - Past Medical History Cardiac Disorders: Yes (severe ) COPD: No Disorders: Yes (BPH) HTN: Yes Hypercholesterolemia: Yes Thyroid Disease: Yes (HYPO) - Surgical History Abdominal Surgery: Yes Appendectomy: Yes - Immunization History Immunization Up to Date: Yes - Suicide/Smoking/Psychosocial Hx Smoking History: Never smoked Have you smoked in the past 12 months: No If you are a former smoker, when did you quit?: 1974 Hx Alcohol Use: No Drug/Substance Use Hx: No Substance Use Type: None <Gilbert Calloway - Last Filed: 11/19/18 01:33> - Past Medical History Allergies/Adverse Reactions: Allergies Allergy/AdvReac Type Severity Reaction Status Date / Time erythromycin base Allergy Severe Difficulty Verified 11/18/18 22:17 Breathing triamcinolone Allergy Intermediate Rash Verified 11/18/18 22:17 naproxen [From Naprosyn] Allergy Verified 11/18/18 22:17 Home Medications: Ambulatory Orders Allopurinol [Zyloprim -] 100 mg PO DAILY 05/20/14 Levothyroxine [Synthroid -] 50 mcg PO DAILY 05/20/14 Silodosin [Rapaflo] 8 mg PO DAILY 05/20/14 Multivitamins [Multivit ([facility] Formulary)] 1 tab PO DAILY 07/22/14 Atorvastatin Ca [Lipitor] 40 mg PO HS 11/03/18 Finasteride 5 mg PO DAILY 11/03/18 Magnesium Oxide 420 mg PO DAILY 11/03/18 Tamsulosin HCl [Flomax] 0.4 mg PO DAILY 11/03/18 Cefuroxime Axetil [Cefuroxime] 250 mg PO BID 10 Days #20 tablet 11/08/18 Oxybutynin Chloride [Ditropan -] 5 mg PO DAILY PRN #5 tablet.er 11/19/18 Review of Systems - Review of Systems Able to Perform ROS?: Yes Is the patient limited Hebrew proficient: No Constitutional: Yes: See HPI. No: Chills, Diaphoresis, Fever, Loss of Appetite HEENTM: Yes: See HPI. No: Recent change in vision, Throat Swelling, Mouth Swelling Respiratory: Yes: See HPI. No: Cough, Orthopnea, Shortness of Breath Cardiac (ROS): Yes: See HPI. No: Chest Pain, Edema, Irregular Heart Rate, Lightheadedness, Palpitations ABD/GI: Yes: See HPI. No: Abdominal Distended, Nausea, Vomiting : Yes: See HPI, Hematuria (blood tinged urine ). No: Burning, Dysuria, Discharge, Flank Pain Musculoskeletal: Yes: See HPI. No: Back Pain, Joint Pain, Muscle Pain Integumentary: Yes: See HPI. No: Bruising, Change in Color, Dryness, Erythema, Flushing Neurological: Yes: See HPI. No: Headache Endocrine: Yes: See HPI. No: Excessive Sweating, Flushing <Gilbert Calloway - Last Filed: 11/19/18 01:33> *Physical Exam - Vital Signs Last Vital Signs Temp Pulse Resp BP Pulse Ox 92 H 18 139/63 99 11/18/18 22:15 11/18/18 22:15 11/18/18 22:15 11/18/18 22:15 <Samina Ness - Last Filed: 11/19/18 01:02> - Vital Signs Last Vital Signs Temp Pulse Resp BP Pulse Ox 92 H 18 139/63 99 11/18/18 22:15 11/18/18 22:15 11/18/18 22:15 11/18/18 22:15 - Physical Exam General Appearance: Yes: Nourished, Appropriately Dressed. No: Apparent Distress HEENT: positive: EOMI, TERESSA, Normal ENT Inspection, Normal Voice, Symmetrical, Pharynx Normal Neck: positive: Trachea midline, Supple. negative: Tender, Normal Thyroid, Rigid Respiratory/Chest: positive: Lungs Clear, Normal Breath Sounds. negative: Chest Tender, Respiratory Distress, Accessory Muscle Use Cardiovascular: positive: Regular Rhythm, Regular Rate, Murmur Gastrointestinal/Abdominal: positive: Soft. negative: Tender Male Genitalia: positive: normal genitalia, hematuria. negative: discharge Musculoskeletal: positive: Normal Inspection. negative: CVA Tenderness Extremity: positive: Normal Capillary Refill, Normal Inspection, Normal Range of Motion. 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 Noticed blood tinged urine around 9pm today. Describes some pain at the tip of the meatus where the catheter is inserted. No active bleeding or discharge noted from the penis. Will obtain UA, urine culture. US of bladder shows 735 cc of urine in the bladder and catheter tip positioned inside the bladder, and US of the right kidney shows right renal cyst. Fontaine catheter removed with some blood clots at the tip of the catheter, which may be preventing the bladder from draining. New Fontaine catheter placed. After suprapubic massage, patient produced around 700 cc of urine in the Fontaine bag. No blood tinged urine seen in Fontaine. No bleeding seen from the penis. 11/19/[id number] Ramirez, who is covering for Dr. Mojica (urologist) who states that oxybutynin is fine for pre-op care and will see the patient in the office in a week as needed. 11/19/18 01:00 Patient reports that the discomfort has much improved. Denies any pain in the genital area. After review of UA, plan to discharge him home with oxybutynin as needed and to follow up with his urologist. Patient signed out to Dr. Ness. <Gilbert Calloway - Last Filed: 11/19/18 01:33> *DC/Admit/Observation/Transfer - Discharge Dispostion Decision to Admit order: No <ThiSamina - Last Filed: 11/19/18 01:02> <Gilbert Calloway - Last Filed: 11/19/18 01:33> Diagnosis at time of Disposition: Acute urinary retention - Discharge Dispostion Disposition: HOME Condition at time of disposition: Improved - Prescriptions Prescriptions: Oxybutynin Chloride [Ditropan -] 5 mg PO DAILY PRN #5 tablet.er PRN Reason: bladder spasm - Referrals Referrals: Victor Manuel Mojica MD [Staff Physician] - Jitendra Ramirez MD., [Staff Physician] - - Patient Instructions Printed Discharge Instructions: How to Care for Your Fontaine Catheter -- Male, DI for Urinary Retention in Men Additional Instructions: you may use ditropan once daily as needed for the bladder/urethral spasms fontaine catheter to be maintained, monitor output and clarity follow up with your urologist call today for an appointment prior to your surgery If you have any worsening of symptoms or any other concerns please return to the ED immediately. Return if worsening symptoms including fevers, headache, vomiting, visual or hearing disturbances, abdominal pain, chest pain, shortness of breath, syncope, dehydration, inability to take things by mouth/vomiting, altered mental status, bloody urine, inability to urinate or worsening concerning symptoms.
--- NOTE | 2018-11-18 23:49 | PDOC ---
Documentation entered by Donavan Rizzo SCRIBE, acting as scribe for Samina Ness MD. Samina Ness MD: This documentation has been prepared by the Matthias bustamante Xhesika, SCRIBE, under my direction and personally reviewed by me in its entirety. I confirm that the documentation accurately reflects all work, treatment, procedures, and medical decision making performed by me. Attending Attestation - Resident Resident Name: Aretha Callowayhan - ED Attending Attestation I have performed the following: I have examined & evaluated the patient, The case was reviewed & discussed with the resident, I agree w/resident's findings & plan - HPI HPI: 11/18/18 23:44 83 yom with PMHx of hypothyrooidism, BPH, HTN, gout, HLD, Macular degen L eye, CKD ?stage III, severe scheduled for TAVR in [facility] (11/23), pending TAVR prep next week, with reported angiography, presenting with abdominal discomfort and urethral pain/bleeding. He was at urologists office, Dr Mojica, and had mckenzie placed for retention and avoiding further obstruction with pending TAVR fixation next week. No f/c, n/v/d. - Physicial Exam PE: 11/18/18 23:44 Agree with the resident's HPI and PE as documented in the electronic medical record. NAD, well appearing, EOMI, PERRL, nl conjunctiva, anicteric; neck supple. lungs clear, +systolic murmur, abdomen soft +distended, suprapubic discomfort. mckenzie catheter in place, no discharge or bleeding from urethra. Back nontender. FAUSTIN x4. No peripheral edema. normal color for ethnicity, WWP. 11/18/18 23:45 - Medical Decision Making 11/18/18 23:48 hpi as documented VS reviewed, wnl. nontoxic appearing, no fever, normotensive bedside renal/bladder sono with no hydro, rt renal cyst; urinary retention with 750ml of urine mckenzie replaced 16 [place], needed bladder massage to expel the clot and relieve the acute urinary retention. put out 700ml of clear urine, with some small clots uro cs with Dr Rosa, Dr Ramirez first front ventilator, discussed case agree with plan maintain mckenzie as it is replaced, monitor for infection or obstruction UA prelim appears unremarkable, except for RBCs, with some WBCS likely from traumatic insert. no urinary sx, defer abx treatment and f/u cultures. rx ditropan prn for the bladder/urethral spasms Pt to be discharged in stable condition. Patient and family made aware of clinical impression, treatment recommendations and disposition plan, return precautions discussed (including but not limited to new or persistent/worsening symptoms, pain, fevers, or signs of infection, chest pain, respiratory distress , inability to tolerate oral intake, dehydration, syncope, or neurologic changes ). Follow up with PMD and urologist as recommended, follow up information provided, take medications as instructed for duration of time. continue with supportive care, avoid triggers and precipitants. All questions answered to patient's satisfaction and expressed understanding and comfort with this. At the time of discharge, the patient is alert, clinically improved, tolerating po and verbalizes understanding of instructions, satisfied with the care received and felt comfortable with the plan. Patient does not suffer from an acute life- threatening medical condition at this time and is safe for outpatient follow- up. 11/19/18 01:01 11/19/18 01:23 Procedures - Bedside Ultrasound Remarks: 11/18/18 23:47 POCUS renal exam performed, indication includes abdominal/flank pain. views obtained: bilateral kidneys in short and long axis, bladder. findings: no evidence of hydronephrosis. bladder volume with mckenzie catheter seen, but 750ml of urine in bladder. Impression: acute urinary retention 11/18/18 23:48
[2018-11-19 01:14] LABS: EPI CELLS 2.1 /HPF (0-5/HPF); HYALINE CASTS 6 /lpf (0-8); URINE APPEARANCE CLEAR; URINE BILIRUBIN NEGATIVE (NEGATIVE); URINE COLOR YELLOW; URINE GLUCOSE (UA) NEGATIVE (NEGATIVE); URINE KETONE NEGATIVE (NEGATIVE); URINE LEUK ESTERASE TRACE (NEGATIVE); URINE NITRITE NEGATIVE (NEGATIVE); URINE PROTEIN 1+ (NEGATIVE); URINE RBC 206 /hpf (0-4); URINE UROBILINOGEN 0.2 mg/dL (0.2-1.0); URINE WBC 11 /hpf (0-5)
[2018-11-19] MEDS ORDERED: OXYBUTYNIN CHLORIDE 5 MG TABLET PO ONE (01:15)
== END 2018-11-19 02:01 | disposition home or self-care (01) ==
LOC: JER 22:12
PROC: 0T2BX0Z Change Drainage Device in Bladder, External Approach (ICD-10-PCS; principal; 2018-11-18)
DX: R33.8 Other retention of urine (principal); I10 Essential (primary) hypertension; E78.5 Hyperlipidemia, unspecified; E78.00 Pure hypercholesterolemia, unspecified; E03.9 Hypothyroidism, unspecified; N40.0 Benign prostatic hyperplasia without lower urinary tract symptoms; I35.0 Nonrheumatic aortic (valve) stenosis
CPT/HCPCS: 76857; 81003; 87086; 99283-25

== ENCOUNTER 2018-11-29 11:53 | Emergency (ER) | payer OTHER ==
[2018-11-29 12:13] VITALS: BMI 29.3
--- NOTE | 2018-11-29 12:15 | PDOC ---
History of Present Illness - General Chief Complaint: Chest Pain Stated Complaint: CHEST PAIN Time Seen by Provider: 11/29/18 12:15 - History of Present Illness Initial Comments: Mr. Green is a 83M s/p TAVR on 11/23 with PMH of HLD, HTN, remote smoking hx, presenting today with left sided dull chest pain that started last night. Describes the pain as intermittent but nothing alleviates or worsens. This is his first time having this pain after his operation. Reports cough, but denies SOB. Denies nausea, vomiting. Cards: Dr. Antonio Interventional Cards: Dr. Quintana Past History - Past Medical History Allergies/Adverse Reactions: Allergies Allergy/AdvReac Type Severity Reaction Status Date / Time erythromycin base Allergy Severe Difficulty Verified 11/18/18 22:17 Breathing triamcinolone Allergy Intermediate Rash Verified 11/18/18 22:17 naproxen [From Naprosyn] Allergy Verified 11/18/18 22:17 Home Medications: Ambulatory Orders Allopurinol [Zyloprim -] 100 mg PO DAILY 05/20/14 Levothyroxine [Synthroid -] 50 mcg PO DAILY 05/20/14 Silodosin [Rapaflo] 8 mg PO DAILY 05/20/14 Atorvastatin Ca [Lipitor] 40 mg PO HS 11/03/18 Finasteride 5 mg PO DAILY 11/03/18 Magnesium Oxide 420 mg PO DAILY 11/03/18 Tamsulosin HCl [Flomax] 0.4 mg PO DAILY 11/03/18 Oxybutynin Chloride [Ditropan -] 5 mg PO DAILY PRN #5 tablet.er 11/19/18 Acetaminophen 650 mg PO DAILY 11/29/18 Aspirin [ASA -] 81 mg PO DAILY 11/29/18 Clopidogrel Bisulfate [Clopidogrel] 75 mg PO DAILY 11/29/18 Pantoprazole Sodium 40 mg PO DAILY 11/29/18 Cardiac Disorders: Yes (severe ) COPD: No Disorders: Yes (BPH) HTN: Yes Hypercholesterolemia: Yes Thyroid Disease: Yes (HYPO) - Surgical History Abdominal Surgery: Yes Appendectomy: Yes - Immunization History Immunization Up to Date: Yes - Suicide/Smoking/Psychosocial Hx Smoking History: Former smoker Have you smoked in the past 12 months: No If you are a former smoker, when did you quit?: 1974 Information on smoking cessation initiated: No Hx Alcohol Use: No Drug/Substance Use Hx: No Substance Use Type: None Review of Systems - Review of Systems Comments:: GENERAL/CONSTITUTIONAL: No fever or chills. No weakness._ HEAD, EYES, EARS, NOSE AND THROAT: No change in vision. No ear pain or discharge. No sore throat._ CARDIOVASCULAR: Reports chest pain. No shortness of breath_ RESPIRATORY: Reports cough. GASTROINTESTINAL: No nausea, vomiting, diarrhea or constipation._ GENITOURINARY: No dysuria, frequency, or change in urination. MUSCULOSKELETAL: No joint or muscle swelling or pain. No neck or back pain._ SKIN: No rash_ NEUROLOGIC: No headache, vertigo, loss of consciousness, or change in strength/ sensation._ ENDOCRINE: No increased thirst. No abnormal weight change_ HEMATOLOGIC/LYMPHATIC: No anemia, easy bleeding, or history of blood clots._ ALLERGIC/IMMUNOLOGIC: No hives or skin allergy._ *Physical Exam - Vital Signs Last Vital Signs Temp Pulse Resp BP Pulse Ox 98.6 F 86 19 138/74 96 11/29/18 12:00 11/29/18 12:00 11/29/18 12:00 11/29/18 12:00 11/29/18 12:00 - Physical Exam Comments: GENERAL: Awake, alert, and oriented to person/place/time, in no acute distress_ HEAD: No signs of trauma, normocephalic, atraumatic _ EYES: PERRLA, EOMI, sclera anicteric, conjunctiva clear_ ENT: Hard of hearing, nares patent, oropharynx clear without exudates. No uvular deviation. Moist mucosa. NECK: Normal ROM, supple, no lymphadenopathy, JVD, or masses_ LUNGS: No distress, speaks in full sentences. Mild bibasilar crackles on auscultation. HEART: Regular rate and rhythm, normal S1 and S2, no murmurs appreciated, peripheral pulses normal and equal bilaterally. ABDOMEN: Soft, protuberant, normoactive bowel sounds. No guarding, no rebound. No masses_ EXTREMITIES: Normal inspection, Normal range of motion. 1+ bilateral non- pitting edema. No clubbing or cyanosis. NEUROLOGICAL: Cranial nerves II through XII grossly intact. Normal speech, normal gait, no focal sensorimotor deficits _ SKIN: Warm, Dry, normal turgor. Diffuse patches of rash on upper and lower extremities. ED Treatment Course - LABORATORY CBC & Chemistry Diagram: 11/29/18 13:14 11/29/18 13:14 Medical Decision Making - Medical Decision Making 11/29/18 12:50 83M s/p TAVR 6 days ago with hx of HLD, HTN, remote smoking hx, presenting with left sided dull chest pain intermittently since last night. Denies shortness of breath. Mild non-pitting edema bilaterally. Will obtain CBC, CMP, CXR, BNP, EKG, troponin. 11/29/18 13:00 EKG shows NSR 85 bpm, left axis deviation, QRS prologation 134ms and QTc prologation 506 ms, left bundle branch block. This was not seen on EKG on November 04, 2018. CXR shows no acute intrathoracic process. 11/29/18 14:[address] Lynn who is covering for Dr. Antonio. She will check [facility] records to see if the LBBB was there prior to the TAVR, and come see the patient in the ED. 11/29/[address] Lynn, plan to transfer to [facility] under the care of Dr. Quintana for higher level of care, including post-TAVR care and echocardiography. Spoke with the [facility] transfer center who accepts this patient for transfer. *DC/Admit/Observation/Transfer Diagnosis at time of Disposition: Chest pain Qualifiers: Chest pain type: unspecified Qualified Code(s): R07.9 - Chest pain, unspecified - Discharge Dispostion Disposition: TRANSFER ACUTE CARE/OTHER HOSP Condition at time of disposition: Stable Decision to Admit order: No - Referrals Referrals: Ruben Reyez MD [Primary Care Provider] - - Patient Instructions - Post Discharge Activity - Transfer to Acute Care Facility Receiving Facility: [facility] (Dr. Quintana)
--- NOTE | 2018-11-29 12:17 | PDOC ---
*Physical Exam - Vital Signs Last Vital Signs Temp Pulse Resp BP Pulse Ox 98.6 F 86 19 138/74 96 11/29/18 12:00 11/29/18 12:00 11/29/18 12:00 11/29/18 12:00 11/29/18 12:00 *DC/Admit/Observation/Transfer - Referrals Referrals: Ruben Reyez MD [Primary Care Provider] - - Patient Instructions - Post Discharge Activity
[2018-11-29 13:31] LABS: BASO % 0.9 % (0-2.0); EOS % 9.3 % (0-4.5); HEMATOCRIT 25.3 % (35.4-49); HEMOGLOBIN 8.4 GM/dL (11.7-16.9); MCH 31.1 pg (25.7-33.7); MCHC 33.3 g/dl (32.0-35.9); MEAN CELL VOLUME 93.4 fl (80-96); MEAN PLT VOLUME 8.1 fl (7.5-11.1); MONO % 7.4 % (3.8-10.2); NEUT % 67.4 % (42.8-82.8); PLATELET COUNT 117 K/MM3 (134-434); RBC 2.71 M/mm3 (4.00-5.60); RDW 16.1 % (11.9-15.9); WHITE BLOOD COUNT 6.1 K/mm3 (4.0-10.0)
[2018-11-29 13:50] LABS: INR 1.08 (0.83-1.09); PROTHROMBIN TIME (PATIENT) 12.7 SEC (9.7-13.0)
--- NOTE | 2018-11-29 13:52 | PDOC ---
Documentation entered by Jennifer Key SCRIBE, acting as scribe for Mami Awad MD. Mami Awad MD: This documentation has been prepared by the tiffanieeShahid Adrianna, SCRIBE, under my direction and personally reviewed by me in its entirety. I confirm that the documentation accurately reflects all work, treatment, procedures, and medical decision making performed by me. Attending Attestation - Resident Resident Name: Gilbert Calloway - ED Attending Attestation I have performed the following: I have examined & evaluated the patient, The case was reviewed & discussed with the resident, I agree w/resident's findings & plan, Exceptions are as noted - HPI HPI: The patient is an 83 year old male, with a significant PMH of hypothyroidism, BPH, HTN, gout, HLD, Macular degeneration of the left eye, CKD stage III, and severe (s/p TAVR 1 week ago at [facility]), who presents to the ED for evaluation of chest pain for one day. Patient endorses left-sided, dull chest pain since yesterday. Although he notes the chest pain is intermittent in nature , he notes it kept him up last night. He reports associated increased bilateral LE edema. He denies any SOB. Allergies: Erythromycin base, triamcinolone, naproxen Surgical History: TAVR (1 week ago), abdominal surgery, appendectomy Social History: Denies EtOH, tobacco, or illicit drug use PCP: Dr. Reyez Sugar Laboratory Assistant: Dr. Antonio 11/29/18 12:59 - Physicial Exam PE: GENERAL: Awake, alert, and fully oriented, in no acute distress HEAD: No signs of trauma EYES: PERRLA, EOMI, sclera anicteric, conjunctiva clear ENT: Auricles normal inspection, hearing grossly normal, nares patent, oropharynx clear without exudates. Moist mucosa NECK: Normal ROM, supple, no lymphadenopathy, JVD, or masses LUNGS: Breath sounds equal, clear to auscultation bilaterally. No wheezes, and no crackles HEART: Regular rate and rhythm, normal S1 and S2, no murmurs, rubs or gallops ABDOMEN: Soft, nontender, normoactive bowel sounds. No guarding, no rebound. No masses EXTREMITIES: Normal range of motion, 3+ pitting edema to ankles B/L. No clubbing or cyanosis. No cords, erythema, or tenderness NEUROLOGICAL: Cranial nerves II through XII grossly intact. Normal speech. Motor and sensation intact SKIN: Warm, dry, normal turgor, no rashes. +Multiple partially healing skin tears- 1 to each wrist, 1 to the L upper thigh. No surrounding erythema. - Medical Decision Making Pt presents with chest pain this morning, s/p TAVR 1 week ago. He is noted to have LE swelling, however, he is unclear if this is chronic or acute (he has macular degeneration, so his vision is poor). EKG shows LBBB, changed from prior EKG from 2018. Will obtain labs, CXR. Will discusss with patient's research scholar as well as Dr. Quintana, who performed the TAVR. ED Treatment Course - LABORATORY CBC & Chemistry Diagram: 11/29/18 13:14 11/29/18 13:14 - ADDITIONAL ORDERS Additional order review: Laboratory Results 11/29/18 11/29/18 11/29/18 13:14 13:14 13:14 PT with INR 12.70 INR 1.08 PTT (Actin FS) 30.2 Sodium Potassium Chloride Carbon Dioxide Anion Gap BUN Creatinine Est GFR (CKD-EPI)AfAm Est GFR (CKD-EPI)NonAf Random Glucose Calcium Total Bilirubin AST ALT Alkaline Phosphatase B-Natriuretic Peptide 2702.5 H Total Protein Albumin 11/29/18 13:14 PT with INR INR PTT (Actin FS) Sodium 140 Potassium 4.9 Chloride 110 H Carbon Dioxide 24 Anion Gap 6 L BUN 44.6 H Creatinine 2.0 H Est GFR (CKD-EPI)AfAm 34.98 Est GFR (CKD-EPI)NonAf 30.18 Random Glucose 114 H Calcium 8.1 L Total Bilirubin 0.5 AST 24 ALT 34 Alkaline Phosphatase 89 B-Natriuretic Peptide Total Protein 6.2 L Albumin 3.3 L 11/29/18 13:14 RBC 2.71 L MCV 93.4 MCHC 33.3 RDW 16.1 H MPV 8.1 Neutrophils % 67.4 Lymphocytes % 15.0 Monocytes % 7.4 Eosinophils % 9.3 H Basophils % 0.9 - RADIOLOGY Radiograph Interpretation: EXAM#: TYPE/EXAM: RESULT: [id number] RAD/CHEST X-RAY PORTABLE* Chest: Left-sided chest pain Impression: No acute chest pathology. Prominent mediastinum due to weak inspiratory effort Reported By: Victor Manuel Sprague MD 11/29/18 13:06 - Consult/PCP Time Called: 14:25 (paged ) Case discussed with personal care physician: Petty Lynn (14:[address] Lynn)
[2018-11-29 13:55] LABS: ALBUMIN 3.3 g/dl (3.4-5.0); BILIRUBIN,TOTAL 0.5 mg/dL (0.2-1); BLOOD UREA NITROGEN 44.6 mg/dL (7-18); CALCIUM 8.1 mg/dL (8.5-10.1); POTASSIUM 4.9 mmol/L (3.5-5.1); TOT PROT 6.2 g/dl (6.4-8.2)
[2018-11-29 15:15] LABS: ANISOCYTOSIS 1+; MACROCYTOSIS 0; PLATELET ESTIMATE DECREASED
--- NOTE | 2018-11-29 16:56 | CON.CARD ---
Consult Consult Specialty:: Cardiology Referred by:: ER Reason for Consultation:: chest pain s/p TAVR - History of Present Illness Chief Complaint: chest pain History of Present Illness: 83M h/o HTN, HLD, CKD, obesity, s/[place] [facility] [place] chest pain. L sided chest pain started this morning, woke him up from sleep. Hasn't felt well since being discharged from the hospital but cannot define further. Reviewed [place] [facility] successful placement of TAVR as well as PTCA of OM1 post TAVR. Noted to have LBBB post TAVR, on EKG 11/24Currently chest pain free, no palps, dizziness, dyspnea. Also has edema, not sure when it started. . - Past Medical History Cardio/Vascular: Yes: Aortic Stenosis, HTN, Hyperlipdemia, Murmur, Other (HTN) Renal/: Yes: Renal Inusuff, BPH Endocrine: Yes: Hypothyroidism - Past Surgical History Past Surgical History: Yes: Cataract Removal, TURP - Alcohol/Substance Use Hx Alcohol Use: No - Smoking History Smoking history: Former smoker Have you smoked in the past 12 months: No If you are a former smoker, when did you quit?: 1974 - Social History Usual Living Arrangement: With Spouse ADL: Independent History of Recent Travel: No Home Medications - Allergies Allergies/Adverse Reactions: Allergies Allergy/AdvReac Type Severity Reaction Status Date / Time erythromycin base Allergy Severe Difficulty Verified 11/18/18 22:17 Breathing triamcinolone Allergy Intermediate Rash Verified 11/18/18 22:17 naproxen [From Naprosyn] Allergy Verified 11/18/18 22:17 - Home Medications Home Medications: Ambulatory Orders Allopurinol [Zyloprim -] 100 mg PO DAILY 05/20/14 Levothyroxine [Synthroid -] 50 mcg PO DAILY 05/20/14 Silodosin [Rapaflo] 8 mg PO DAILY 05/20/14 Atorvastatin Ca [Lipitor] 40 mg PO HS 11/03/18 Finasteride 5 mg PO DAILY 11/03/18 Magnesium Oxide 420 mg PO DAILY 11/03/18 Tamsulosin HCl [Flomax] 0.4 mg PO DAILY 11/03/18 Oxybutynin Chloride [Ditropan -] 5 mg PO DAILY PRN #5 tablet.er 11/19/18 Acetaminophen 650 mg PO DAILY 11/29/18 Aspirin [ASA -] 81 mg PO DAILY 11/29/18 Clopidogrel Bisulfate [Clopidogrel] 75 mg PO DAILY 11/29/18 Pantoprazole Sodium 40 mg PO DAILY 11/29/18 Family Disease History - Family Disease History Family Disease History: Heart Disease: Brother (Stents), CA: Father (Colon) Review of Systems - Review of Systems Constitutional: reports: No Symptoms Eyes: reports: No Symptoms HENT: reports: No Symptoms Neck: reports: No Symptoms Cardiovascular: reports: No Symptoms Respiratory: reports: No Symptoms Gastrointestinal: reports: No Symptoms Genitourinary: reports: No Symptoms Musculoskeletal: reports: No Symptoms Integumentary: reports: No Symptoms Neurological: reports: No Symptoms Endocrine: reports: No Symptoms Hematology/Lymphatic: reports: No Symptoms Psychiatric: reports: No Symptoms Vital Signs: Vital Signs Temperature 98.6 F 11/29/18 12:00 Pulse Rate 86 11/29/18 12:00 Respiratory Rate 19 11/29/18 12:00 Blood Pressure 138/74 11/29/18 12:00 O2 Sat by Pulse Oximetry (%) 96 11/29/18 12:00 Constitutional: Yes: Well Nourished, No Distress, Calm Eyes: Yes: Conjunctiva Clear, EOM Intact HENT: Yes: Atraumatic, Normocephalic Neck: Yes: Supple, Trachea Midline Respiratory: Yes: Regular, CTA Bilaterally Gastrointestinal: Yes: Normal Bowel Sounds, Soft Cardiovascular: Yes: Regular Rate and Rhythm JVD: No Carotid Bruit: No PMI: Non-Displaced Musculoskeletal: No: Back Pain Extremities: No: Cold Edema: Yes Edema: LLE: 2+, RLE: 2+ Peripheral Pulses WNL: Yes Peripheral Pulses: 2+ Left Doralis Pedis, 2+ Right Dorsalis Pedis Integumentary: No: Jaundice Neurological: Yes: Alert, Oriented Psychiatric: No: Agitated - Other Data Labs, Other Data: CBC, BMP 11/29/18 13:14 11/29/18 13:14 INR, PTT INR 1.08 (0.83-1.09) 11/29/18 13:14 Troponin, BNP 11/29/18 11/29/18 13:14 13:14 Troponin I 1.15 H* B-Natriuretic Peptide 2702.5 H Troponin, BNP 11/29/18 11/29/18 13:14 13:14 Troponin I 1.15 H* B-Natriuretic Peptide 2702.5 H Assessment/Plan EKG: sinus, LBBB CXR: no congestion tele: sinus, LBBB Chest pain, edema, s/p TAVR - atypical symptoms, trop 1.16, BNP 2700 - EKG with LBBB post TAVR - reviewed [place] [facility], was noted on 11/24 EKG - CXR no congestion - less typical for HF - s/p TAVR 11/23 - discussed case with Dr. Quintana [place] [facility], given recent cath, TAVR placement will transfer for echo and further workup HTN - stable, cont current meds CAD - s/p PTCA last week [place] [facility] - cont aspirin, statin, plavix HLD - cont statin CKD - stable, monitor
[2018-11-29 20:02] VITALS: BP 122/72; PULSE 100; TEMP 98.5
--- NOTE | 2018-11-30 14:28 | EKG ---
Test Reason : Blood Pressure : / mmHG Vent. Rate : 085 BPM Atrial Rate : 087 BPM P-R Int : 166 ms QRS Dur : 134 ms QT Int : 426 ms P-R-T Axes : 028 -05 141 degrees QTc Int : 506 ms NORMAL SINUS RHYTHM LEFT BUNDLE BRANCH BLOCK ABNORMAL ECG WHEN COMPARED WITH ECG OF 04-NOV-2018 12:43, LEFT BUNDLE BRANCH BLOCK IS NOW PRESENT Confirmed by Gilbert Lindsay MD ([id number]) on 11/30/2018 2:28:19 PM Referred By: Confirmed By:Gilbert Lindsay MD
== END 2018-11-29 21:11 | disposition short-term general hospital (02) ==
LOC: JER 11:53
DX: R07.9 Chest pain, unspecified (principal); E78.5 Hyperlipidemia, unspecified; I10 Essential (primary) hypertension; Z87.891 Personal history of nicotine dependence; E03.9 Hypothyroidism, unspecified; E78.00 Pure hypercholesterolemia, unspecified; N40.0 Benign prostatic hyperplasia without lower urinary tract symptoms
CPT/HCPCS: 36415; 71045-TC-FY; 80053; 82550; 83880; 84484; 85025; 85610; 85730; 93005; 93010; 99285-25

== ENCOUNTER 2018-12-05 14:41 | Inpatient (IN) | payer OTHER | END 2018-12-08 16:21 | LOC: JER 14:41 → J4W 12-06 17:56 → JERBED 21:20 → J8W 23:11 ==

== ENCOUNTER 2019-03-06 07:17 | Emergency (ER) | payer OTHER ==
[2019-03-06 07:49] VITALS: BP 115/51; PULSE 55; TEMP 97.7; BMI 28.0
--- NOTE | 2019-03-06 08:25 | PDOC ---
History of Present Illness - General Chief Complaint: Weakness Stated Complaint: NOT FEELING WELL Time Seen by Provider: 03/06/19 07:49 History Source: Patient, Family Exam Limitations: No Limitations - History of Present Illness Initial Comments: 03/06/19 09:08 84M PMH CHF, CKD, h/o TAVR, BPH requesting medication refill. Pt recently prescribed citalopram for anxiety and states he took one pill and felt immediately better. Last night he noticed the citalopram was missing and at bedside states she may have thrown it out by accident. Pt immediately started to feel anxious, nervous, nauseated, and weak w/ poor sleep. Currently asymptomatic and feeling "well." Denies current anxiety, nausea, and weakness. 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 Past History - Past Medical History Allergies/Adverse Reactions: Allergies Allergy/AdvReac Type Severity Reaction Status Date / Time erythromycin base Allergy Severe Difficulty Verified 03/06/19 07:29 Breathing triamcinolone Allergy Intermediate Rash Verified 03/06/19 07:29 naproxen [From Naprosyn] Allergy Verified 03/06/19 07:29 Home Medications: Ambulatory Orders Allopurinol [Zyloprim -] 100 mg PO DAILY 05/20/14 Levothyroxine [Synthroid -] 50 mcg PO DAILY 05/20/14 Silodosin [Rapaflo] 8 mg PO DAILY 05/20/14 Finasteride 5 mg PO DAILY 11/03/18 Magnesium Oxide 420 mg PO DAILY 11/03/18 Tamsulosin HCl [Flomax] 0.4 mg PO DAILY 11/03/18 Aspirin [ASA -] 81 mg PO DAILY 11/29/18 Clopidogrel Bisulfate [Clopidogrel] 75 mg PO DAILY 11/29/18 Pantoprazole Sodium 40 mg PO DAILY 11/29/18 Amlodipine Besylate 5 mg PO DAILY 12/06/18 Atorvastatin Ca [Lipitor] 10 mg PO DAILY 12/06/18 Furosemide [Lasix -] 20 mg PO DAILY 12/06/18 Metoprolol Tartrate 12.5 mg PO BID 12/06/18 Cefpodoxime Proxetil [Vantin -] 100 mg PO BID tablet 12/08/18 Lidocaine 2% Uro-Jet [Xylocaine 2% Uro-Jet] 2 ml TP Q8H PRN cartridge 12/08/18 Cardiac Disorders: Yes (severe ) COPD: No Disorders: Yes (BPH) HTN: Yes Hypercholesterolemia: Yes Thyroid Disease: Yes (HYPO) - Surgical History Abdominal Surgery: Yes Appendectomy: Yes - Immunization History Immunization Up to Date: Yes - Psycho Social/Smoking Cessation Hx Smoking History: Never smoked Have you smoked in the past 12 months: No If you are a former smoker, when did you quit?: 1975 Hx Alcohol Use: No Drug/Substance Use Hx: No Substance Use Type: None Review of Systems - Review of Systems Able to Perform ROS?: Yes Comments:: 03/06/19 09:08 ROS: CONSTITUTIONAL: Denies F/C RESP: Denies SOB CARD: Denies chest pain GI: Endorsed prior Nausea but not current. Denies V / D, abdominal pain, inability to tolerate PO : Denies change in urine color/character, mckenzie obstruction SKIN: Denies rashes NEURO: Endorsed prior weakness but not current Is the patient limited Albanian proficient: No *Physical Exam - Vital Signs Last Vital Signs Temp Pulse Resp BP Pulse Ox 97.7 F 55 L 18 115/51 L 98 03/06/19 07:25 03/06/19 07:25 03/06/19 07:25 03/06/19 07:25 03/06/19 07:25 - Physical Exam Comments: 03/06/19 09:08 PE: GEN: Comfortable, NAD, AAOx3, hard of hearing HEENT: NC/AT. No facial asymmetry. Normal voice. Supple neck w/ FROM. CV: S1/S2, RRR, no m/r/g LUNG: CTAB, no wheezes, crackles, rales, rhonchi. GI: soft, ndnt, +BS, no guarding, no rebound. EXTREMITIES: 1+ b/l LE edema* No obvious deformities of all extremities. *when asked about this, pt states it has been decreasing SKIN: warm, dry, normal turgor PSYCH: slightly anxious NEURO: Moving all extremities well, ambulating well. Medical Decision Making - Medical Decision Making 03/06/19 08:20 MDM: 84M requesting refill on citalopram. No current symptoms. - Explained to the pt and that citalopram is not a drug that Emergency Medicine usually prescribes - Will give one 10mg citalopram in ED (prescribed dose) - Discussed that patient should call PCP office tomorrow to refill the citalopram; pt and amenable to plan - DC home w/ PCP f/u and return precautions Discharge - Discharge Information Problems reviewed: Yes Clinical Impression/Diagnosis: Medication refill Condition: Stable Disposition: HOME - Admission No - Follow up/Referral Referrals: Ruben Reyez MD [Primary Care Provider] - - Patient Discharge Instructions Additional Instructions: You were given a missing dose of your citalopram in the Emergency Department. As discussed, please call Dr. Reyez in the morning tomorrow (03/07/19) regarding your missing medication. Immediately return to the nearest ED if you experience any worsening, new, or concerning symptoms. - Post Discharge Activity
[2019-03-06] MEDS ORDERED: CITALOPRAM HYDROBROMIDE 10 MG TABLET (FP) PO ONE (08:26)
[2019-03-06] MEDS ORDERED: CITALOPRAM HYDROBROMIDE 10 MG TABLET (FP) ONE (08:38)
--- NOTE | 2019-03-06 09:10 | PDOC ---
Attending Attestation - Resident Resident Name: Arnaud Little - ED Attending Attestation I have performed the following: I have examined & evaluated the patient, The case was reviewed & discussed with the resident, I agree w/resident's findings & plan - HPI HPI: 03/06/19 09:39 83 yom with PMHx of hypothyrooidism, BPH, HTN, gout, HLD, Macular degen L eye, CKD ?stage III, severe scheduled for TAVR in [facility] (11/23), presenting with feeling of anxiety. Pt immediately started to feel anxious, nervous, nauseated, and weak w/ poor sleep. Currently asymptomatic and feeling "well." Citalopram recently prescribed for anxiety, But ?accidentally thrown out by this morning. he has been feeling anxious regarding not taking the medication. Mckenzie in place for his BPH, had not changed out the leg bag - does not bother him. no discharge, no pain, no ap, no n/v, no fevers. 03/06/19 09:42 - Physicial Exam PE: 03/06/19 09:40 Agree with the resident's HPI and PE as documented in the electronic medical record. NAD, well appearing, EOMI, PERRL, nl conjunctiva, anicteric; neck supple. lungs clear, RRR, abdomen soft nontender. no rebound, guarding. mckenzie with leg bag in place. Back nontender. FAUSTIN x4, no focal neuro deficits. No peripheral edema. normal color for ethnicity, WWP. - Medical Decision Making 03/06/19 09:40 Vital Signs Temp Pulse Resp BP Pulse Ox 97.7 F 55 L 18 115/51 L 98 03/06/19 07:25 03/06/19 07:25 03/06/19 07:25 03/06/19 07:25 03/06/19 07:25 Patient was given dose of citalopram here. Told to follow-up with his primary doctor for reinstitution of his prescription for citalopram. He has no complaints feels well, no symptoms from the urinary tract or abdomen to suggest any infection. Leg bag was changed out. He is also most likely a chronic colonizer due to his chronic Mckenzie in place for the BPH. Will provide extra leg bags for changing. No evidence of obstruction is seen as it is draining urine appropriately. Pt to be discharged in stable condition. Patient and family made aware of clinical impression, treatment recommendations and disposition plan, return precautions discussed (including but not limited to new or persistent/worsening symptoms, pain, fevers, or signs of infection, chest pain, respiratory distress , inability to tolerate oral intake, dehydration, syncope, or neurologic changes ). Follow up with PMD and/or specialist as recommended, follow up information provided, take medications as instructed for duration of time. continue with supportive care, avoid triggers and precipitants. All questions answered to patient's satisfaction and expressed understanding and comfort with this. At the time of discharge, the patient is alert, clinically improved, tolerating po and verbalizes understanding of instructions, satisfied with the care received and felt comfortable with the plan. Patient does not suffer from an acute life- threatening medical condition at this time and is safe for outpatient follow- up.
== END 2019-03-06 08:52 | disposition home or self-care (01) ==
LOC: JER 07:17
DX: Z76.0 Encounter for issue of repeat prescription (principal); F41.9 Anxiety disorder, unspecified; I25.10 Atherosclerotic heart disease of native coronary artery without angina pectoris; I13.0 Hypertensive heart and chronic kidney disease with heart failure and stage 1 through stage 4 chronic kidney disease, or unspecified chronic kidney disease; N18.3 Chronic kidney disease, stage 3 (moderate); I50.9 Heart failure, unspecified; E78.5 Hyperlipidemia, unspecified; E03.9 Hypothyroidism, unspecified; N40.0 Benign prostatic hyperplasia without lower urinary tract symptoms; Z95.4 Presence of other heart-valve replacement; Z88.1 Allergy status to other antibiotic agents; Z88.6 Allergy status to analgesic agent
CPT/HCPCS: 99282-25

== ENCOUNTER 2019-05-08 12:46 | Inpatient (IN) | payer OTHER ==
--- NOTE | 2019-05-08 14:00 | PDOC ---
History of Present Illness - General History Source: Patient, Spouse - History of Present Illness Timing/Duration: reports: other Associated Symptoms: reports: cough, fever/chills <Laura RodríguezBelkys - Last Filed: 05/08/19 15:37> <Samina Ness - Last Filed: 05/09/19 17:24> - General Chief Complaint: Respiratory Stated Complaint: COLD SYMPTOMS Time Seen by Provider: 05/08/19 13:36 Past History - Past Medical History Cardiac Disorders: Yes (severe ) COPD: No Disorders: Yes (BPH) HTN: Yes Hypercholesterolemia: Yes Thyroid Disease: Yes (HYPO) - Surgical History Abdominal Surgery: Yes Appendectomy: Yes - Immunization History Immunization Up to Date: Yes - Psycho Social/Smoking Cessation Hx Smoking History: Never smoked Have you smoked in the past 12 months: No If you are a former smoker, when did you quit?: 1975 Hx Alcohol Use: No Drug/Substance Use Hx: No Substance Use Type: None <FrisianAmara - Last Filed: 05/08/19 15:37> <Samina Ness - Last Filed: 05/09/19 17:24> - Past Medical History Allergies/Adverse Reactions: Allergies Allergy/AdvReac Type Severity Reaction Status Date / Time erythromycin base Allergy Severe Difficulty Verified 05/08/19 12:56 Breathing triamcinolone Allergy Intermediate Rash Verified 05/08/19 12:56 naproxen [From Naprosyn] Allergy Verified 05/08/19 12:56 Home Medications: Ambulatory Orders Allopurinol [Zyloprim -] 100 mg PO DAILY 05/20/14 Levothyroxine [Synthroid -] 50 mcg PO DAILY 05/20/14 Silodosin [Rapaflo] 8 mg PO DAILY 05/20/14 Magnesium Oxide 420 mg PO DAILY 11/03/18 Aspirin [ASA -] 81 mg PO DAILY 11/29/18 Clopidogrel Bisulfate [Clopidogrel] 75 mg PO DAILY 11/29/18 Pantoprazole Sodium 40 mg PO DAILY 11/29/18 Amlodipine Besylate 5 mg PO DAILY 12/06/18 Atorvastatin Ca [Lipitor] 10 mg PO DAILY 12/06/18 Furosemide [Lasix -] 20 mg PO DAILY 12/06/18 Metoprolol Tartrate 12.5 mg PO BID 12/06/18 Review of Systems - Review of Systems Constitutional: Yes: Chills, Fever, Malaise Respiratory: No: Cough, Shortness of Breath, Wheezing ABD/GI: No: Diarrhea, Nausea, Vomiting : No: Dysuria, Hematuria Neurological: No: Headache, Numbness, Tingling, Weakness, Dizziness <Amara Rodríguez - Last Filed: 05/08/19 15:37> *Physical Exam - Vital Signs Last Vital Signs Temp Pulse Resp BP Pulse Ox 97.6 F 109 H 18 131/56 L 96 05/08/19 12:51 05/08/19 12:51 05/08/19 12:51 05/08/19 12:51 05/08/19 12:51 - Physical Exam General Appearance: Yes: Appropriately Dressed. No: Apparent Distress HEENT: positive: Normal Voice. negative: Scleral Icterus (R), Scleral Icterus ( L) Neck: positive: Supple Respiratory/Chest: positive: Lungs Clear, Normal Breath Sounds. negative: Respiratory Distress Cardiovascular: positive: Regular Rate, S1, S2 Gastrointestinal/Abdominal: positive: Soft. negative: Tender Musculoskeletal: negative: CVA Tenderness Integumentary: positive: Dry, Warm Neurologic: positive: Fully Oriented, Alert, Normal Mood/Affect <Amara Rodríguez - Last Filed: 05/08/19 15:37> - Vital Signs Last Vital Signs Temp Pulse Resp BP Pulse Ox 100.0 F H 86 18 118/63 94 L 05/09/19 14:00 05/09/19 14:00 05/09/19 14:00 05/09/19 14:00 05/09/19 10:00 <Samina Ness - Last Filed: 05/09/19 17:24> ED Treatment Course - LABORATORY CBC & Chemistry Diagram: 05/08/19 14:00 05/08/19 14:00 - RADIOLOGY Radiology Studies Ordered: Category Date Time Status CHEST X-RAY PORTABLE* [RAD] Stat Radiology 05/08/19 13:59 Ordered <Amara Rodríguez - Last Filed: 05/08/19 15:37> - LABORATORY CBC & Chemistry Diagram: 05/09/19 07:45 05/09/19 09:45 - ADDITIONAL ORDERS Additional order review: 05/08/19 14:00 RBC 3.61 L MCV 92.0 MCHC 32.4 RDW 17.8 H MPV 8.4 Neutrophils % 91.7 H D Lymphocytes % 3.1 L D Monocytes % 4.1 Eosinophils % 0.7 D Basophils % 0.4 - Medications Given in the ED: ED Medications Discontinued Medications Generic Name Dose Route Start Last Admin Trade Name Jeanie PRN Reason Stop Dose Admin Acetaminophen 1,000 mg 05/08/19 18:00 05/08/19 18:04 Ofirmev Injection - IVPB 05/08/19 18:01 1,000 mg ONCE ONE Administration Ceftriaxone Sodium 1 gm/ 50 mls @ 100 mls/hr 05/08/19 15:07 05/08/19 17:30 Dextrose IVPB 05/08/19 15:36 100 mls/hr ONCE ONE Administration Sodium Chloride 500 mls @ 500 mls/hr 05/08/19 15:12 05/08/19 18:04 Normal Saline - IV 05/08/19 16:11 500 mls/hr ASDIR STA Administration Sodium Chloride 1,000 mls @ 50 mls/hr 05/08/19 16:30 05/08/19 18:40 Normal Saline - IV 05/10/19 16:24 Not Given ASDIR ANGELA Sodium Chloride 500 mls @ 500 mls/hr 05/08/19 18:04 05/08/19 18:23 Normal Saline - IV 05/08/19 19:03 500 mls/hr ASDIR STA Administration <NessSaminaguanaco - Last Filed: 05/09/19 17:24> Medical Decision Making - Medical Decision Making 05/08/19 14:01 84 yo M, h/o HTN, HLD, severe , TAVR, CKD (baseline Cr 2.3), indwelling mckenzie 2/2 BPH, anxiety here w/ malaise w/ low grade fever x several days per . Pt reports feeling lousy and hard to ambulate due to generalized weakness. Denies SOB, CP, body aches, change in BM, flank pain, hematuria, n/v. Pt reports feeling lousy see exam Malaise w/ fever Well monse w/ mild tachycardia to 109, afebrile here R/o influenza vs PNA vs UTI , less likely cardiac source -ekg -cxr -labs -ua/cx (indwelling mckenzie in place-will send specimen from fresh urine) -dispo pending 05/08/19 15:08 + UTI with leukocytosis of 15. Cr baseline for pt. Will give dose of ceftriaxone based on previous urine culture and arrange admission <Amara Rodríguez - Last Filed: 05/08/19 15:37> - Medical Decision Making The patient was seen and evaluated in conjunction with midlevel provider under my direct supervision, ancillary studies were reviewed. I agree with the plan as outlined JASE Rodríguez. HPI, workup/dispo as outlined. VS reviewed, +feve and tachycardia, Urine/culture obtained, straight cath sample IV ceftriaxone for UTI admit for continued medical management. 05/09/19 17:23 <Samina Ness - Last Filed: 05/09/19 17:24> Discharge - Discharge Information Problems reviewed: Yes - Admission Yes <Amara Rodríguez - Last Filed: 05/08/19 15:37> <Samina Ness - Last Filed: 05/09/19 17:24> - Discharge Information Clinical Impression/Diagnosis: Malaise UTI (urinary tract infection) Qualifiers: Urinary tract infection type: site unspecified Hematuria presence: without hematuria Qualified Code(s): N39.0 - Urinary tract infection, site not specified Condition: Fair
[2019-05-08 14:31] LABS: BASO % 0.4 % (0-2.0); EOS % 0.7 % (0-4.5); HEMATOCRIT 33.2 % (35.4-49); HEMOGLOBIN 10.7 GM/dL (11.7-16.9); LYMPH % 3.1 % (8-40); MCH 29.8 pg (25.7-33.7); MCHC 32.4 g/dl (32.0-35.9); MEAN PLT VOLUME 8.4 fl (7.5-11.1); MONO % 4.1 % (3.8-10.2); NEUT % 91.7 % (42.8-82.8); PLATELET COUNT 176 K/MM3 (134-434); RBC 3.61 M/mm3 (4.00-5.60); RDW 17.8 % (11.9-15.9); WHITE BLOOD COUNT 15.1 K/mm3 (4.0-10.0)
[2019-05-08 15:05] LABS: EPI CELLS 1.4 /HPF (0-5/HPF); HYALINE CASTS 33 /lpf (0-8); PH,URINE 7.5 (5.0-8.0); URINE APPEARANCE CLOUDY; URINE BACTERIA >9000 /hpf (NEGATIVE); URINE BILIRUBIN NEGATIVE (NEGATIVE); URINE COLOR YELLOW; URINE GLUCOSE (UA) NEGATIVE (NEGATIVE); URINE KETONE NEGATIVE (NEGATIVE); URINE LEUK ESTERASE 2+ (NEGATIVE); URINE NITRITE NEGATIVE (NEGATIVE); URINE PROTEIN 3+ (NEGATIVE); URINE RBC 28 /hpf (0-4); URINE UROBILINOGEN 0.2 mg/dL (0.2-1.0); URINE WBC 145 /hpf (0-5)
[2019-05-08] MEDS ORDERED: CEFTRIAXONE 1 GM in DEXTROSE 5%-WATER - 50 ML IVPB ONE (15:07)
[2019-05-08 15:10] LABS: ALBUMIN 3.6 g/dl (3.4-5.0); ALK PHOS 112 U/L (45-117); ANION GAP 6 MMOL/L (8-16); BILIRUBIN,TOTAL 0.4 mg/dL (0.2-1); BLOOD UREA NITROGEN 36.3 mg/dL (7-18); CALCIUM 8.7 mg/dL (8.5-10.1); CHLORIDE 109 mmol/L (98-107); CO2 22 mmol/L (21-32); CREATININE 2.3 mg/dL (0.55-1.3); GLUCOSE,RANDOM 146 mg/dL (74-106); LIPASE 93 U/L (73-393); POTASSIUM 4.3 mmol/L (3.5-5.1); SGOT/AST 27 U/L (15-37); SGPT/ALT 39 U/L (13-61); SODIUM 137 mmol/L (136-145); TOT PROT 7.3 g/dl (6.4-8.2)
[2019-05-08] MEDS ORDERED: SODIUM CHLORIDE 500 ML IV STA ×2 (15:12→18:04)
[2019-05-08 15:53] LABS: PLATELET ESTIMATE ADEQUATE
[2019-05-08] MEDS ORDERED: SODIUM CHLORIDE 1,000 ML IV SCH (16:30)
--- NOTE | 2019-05-08 16:48 | PN ---
Teaching Attending Note Name of Resident: Paloma Vega ATTENDING PHYSICIAN STATEMENT I saw and evaluated the patient. I reviewed the resident's note and discussed the case with the resident. I agree with the resident's findings and plan as documented with exceptions below. 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 unsure if cloudy foul smelling urine (was reported by ED RN who changed patient' s mckenzie). No recent URI like illness, sick contacts, travel, antibiotics, abdominal or flank pain, chest pain, palpitations, new cough, dyspnea, dizziness noted. Currently hungry, asking for food, no complaints otherwise. 12 point ROS done, neg except above. OBJECTIVE: Vital Signs Period Temp Pulse Resp BP Sys/Franco Pulse Ox Last 24 Hr 97.6 F 109 18 131/56 96 Intake & Output 05/05/19 05/06/19 05/07/19 05/08/19 23:59 23:59 23:59 23:59 Weight 196 lb GENERAL: Awake, alert, and fully oriented, in no acute distress. HEAD: Normal with no signs of trauma. EYES: Pupils equal, round and reactive to light, extraocular movements intact, sclera anicteric, conjunctiva clear. No lid lag. EARS, NOSE, THROAT: Ears normal, nares patent, oropharynx clear without exudates. Moist mucous membranes. NECK: Normal range of motion, supple, no JVD LUNGS: Breath sounds equal, clear to auscultation bilaterally. No wheezes, and no crackles. No accessory muscle use. HEART: Regular rate and rhythm, normal S1 and S2 ABDOMEN: Soft, obese,NT throughout, no suprapubic or CVA tenderness, no voluntary or involuntary guarding or rigidity, pos bowel sounds, mckenzie just replaced, in placed with no surrounding erythema/edema or discharge (unable to examine scrotum as patient getting his mckenzie changed) MUSCULOSKELETAL: Normal range of motion at all joints. No bony deformities or tenderness. No CVA tenderness. UPPER EXTREMITIES: 2+ pulses, warm, well-perfused. No cyanosis. No clubbing. No peripheral edema. LOWER EXTREMITIES: 2+ pulses, warm, well-perfused. No calf tenderness. No peripheral edema. NEUROLOGICAL: AAOx3, power 5/5, Cranial nerves II-XII intact. Normal speech. Gait not observed PSYCHIATRIC: Cooperative. Good eye contact. Appropriate mood and affect. SKIN: Warm, dry, normal turgor, no rashes or lesions noted, normal capillary refill. Home Medications Medication Instructions Recorded Allopurinol [Zyloprim -] 100 mg PO DAILY 05/20/14 Levothyroxine [Synthroid -] 50 mcg PO DAILY 05/20/14 Silodosin [Rapaflo] 8 mg PO DAILY 05/20/14 Finasteride 5 mg PO DAILY 11/03/18 Magnesium Oxide 420 mg PO DAILY 11/03/18 Tamsulosin HCl [Flomax] 0.4 mg PO DAILY 11/03/18 Aspirin [ASA -] 81 mg PO DAILY 11/29/18 Clopidogrel Bisulfate [Clopidogrel] 75 mg PO DAILY 11/29/18 Pantoprazole Sodium 40 mg PO DAILY 11/29/18 Amlodipine Besylate 5 mg PO DAILY 12/06/18 Atorvastatin Ca [Lipitor] 10 mg PO DAILY 12/06/18 Furosemide [Lasix -] 20 mg PO DAILY 12/06/18 Metoprolol Tartrate 12.5 mg PO BID 12/06/18 Cefpodoxime Proxetil [Vantin -] 100 mg PO BID tablet 12/08/18 Lidocaine 2% Uro-Jet [Xylocaine 2% 2 ml TP Q8H PRN cartridge 12/08/18 Uro-Jet] Active Medications Heparin Sodium (Porcine) (Heparin -) 5,000 unit SQ TID [facility] [place] Ceftriaxone Sodium 1 gm/ (Dextrose) 50 mls @ 100 mls/hr IVPB DAILY ANGELA Sodium Chloride (Normal Saline -) 1,000 mls @ 50 mls/hr IV ASDIR ANGELA Stop: 05/10/19 16:24 Laboratory Results - last 24 hr 05/08/19 05/08/19 05/08/19 14:00 14:00 14:00 WBC 15.1 H RBC 3.61 L Hgb 10.7 L Hct 33.2 L D MCV 92.0 MCH 29.8 MCHC 32.4 RDW 17.8 H Plt Count 176 D MPV 8.4 Absolute Neuts (auto) 13.8 H Total Counted 100 Neutrophils % 91.7 H D Neutrophils % (Manual) 93.0 H D Band Neutrophils % 2.0 Lymphocytes % 3.1 L D Lymphocytes % (Manual) 3.0 L D Monocytes % 4.1 Monocytes % (Manual) 2 L D Eosinophils % 0.7 D Basophils % 0.4 Nucleated RBC % 0 Hypochromia 1+ Platelet Estimate Adequate Platelet Comment No clumping noted Sodium 137 Potassium 4.3 Chloride 109 H Carbon Dioxide 22 Anion Gap 6 L BUN 36.3 H Creatinine 2.3 H Est GFR (CKD-EPI)AfAm 29.34 Est GFR (CKD-EPI)NonAf 25.31 Random Glucose 146 H Calcium 8.7 Total Bilirubin 0.4 AST 27 ALT 39 Alkaline Phosphatase 112 Creatine Kinase 94 Troponin I < 0.02 Total Protein 7.3 Albumin 3.6 Lipase 93 Urine Color Urine Appearance Urine pH Ur Specific [place] Urine Protein Urine Glucose (UA) Urine Ketones Urine Blood Urine Nitrite Urine Bilirubin Urine Urobilinogen Ur Leukocyte Esterase Urine WBC (Auto) Urine RBC (Auto) Urine Casts (Auto) U Epithel Cells (Auto) Urine Bacteria (Auto) Influenza A (Rapid) Negative Influenza B (Rapid) Negative 05/08/19 14:00 WBC RBC Hgb Hct MCV MCH MCHC RDW Plt Count MPV Absolute Neuts (auto) Total Counted Neutrophils % Neutrophils % (Manual) Band Neutrophils % Lymphocytes % Lymphocytes % (Manual) Monocytes % Monocytes % (Manual) Eosinophils % Basophils % Nucleated RBC % Hypochromia Platelet Estimate Platelet Comment Sodium Potassium Chloride Carbon Dioxide Anion Gap BUN Creatinine Est GFR (CKD-EPI)AfAm Est GFR (CKD-EPI)NonAf Random Glucose Calcium Total Bilirubin AST ALT Alkaline Phosphatase Creatine Kinase Troponin I Total Protein Albumin Lipase Urine Color Yellow Urine Appearance Cloudy Urine pH 7.5 D Ur Specific [place] 1.019 Urine Protein 3+ H Urine Glucose (UA) Negative Urine Ketones Negative Urine Blood 2+ H Urine Nitrite Negative Urine Bilirubin Negative Urine Urobilinogen 0.2 Ur Leukocyte Esterase 2+ H Urine WBC (Auto) 145 Urine RBC (Auto) 28 Urine Casts (Auto) 33 U Epithel Cells (Auto) 1.4 Urine Bacteria (Auto) >9000 Influenza A (Rapid) Influenza B (Rapid) CXR no acute process EKG NSR, LBBB ASSESSMENT AND PLAN: 84 yom with PMhx of BPH/Chronic urinary retention with mckenzie (planned for intervention in 05/2019 as needs to be on plavix), 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 -Sepsis -Suspected complicated UTI -BPH with Chronic urinary retention/indwelling mckenzie - s/p TAVR 11/23/2018 -CAD s/p PCI OM 12/01 -Diastolic HF exacerbation -CKD stage III -HTN -HLD -Gout -Hypothyroidism Plan: Mckenzie replaced in the ED, sent repeat ua/urine cx. ceftriaxone. Continue flomax/finasteride IVF prn. HOld lasix. Encourage oral intake. Planned for urological intervention in 05/2019 when able to get off plavix given recent PCI. Continue ASA/plavix/Metoprolol/Statin/Amlodipine/Allopurinol DVTPPX heparin Dispo in 1-2 days pending clinical improvement.
[2019-05-08 16:53] LABS: EPI CELLS 1.1 /HPF (0-5/HPF); HYALINE CASTS 2 /lpf (0-8); URINE APPEARANCE TURBID; URINE BACTERIA 2134.6 /hpf (NEGATIVE); URINE BILIRUBIN NEGATIVE (NEGATIVE); URINE COLOR YELLOW; URINE GLUCOSE (UA) NEGATIVE (NEGATIVE); URINE KETONE NEGATIVE (NEGATIVE); URINE LEUK ESTERASE 2+ (NEGATIVE); URINE NITRITE NEGATIVE (NEGATIVE); URINE PROTEIN 2+ (NEGATIVE); URINE RBC 10 /hpf (0-4); URINE UROBILINOGEN 0.2 mg/dL (0.2-1.0); URINE WBC 468 /hpf (0-5)
--- NOTE | 2019-05-08 16:56 | HP ---
CHIEF COMPLAINT: fever, chills, weakness PCP: Dr. Reyez HISTORY OF PRESENT ILLNESS: 84 y/o/m with PMHx of HTN, HLD, severe , TAVR, CKD (baseline Cr 2.3), BPH, macular degeneration (left eye worse than right) anxiety with an indwelling mckenzie since November of this year here for chills, fever, and weakness x5 days. Patient had a temperature of 101F at home earlier today. Diarrhea x1 today, non bloody. He usually ambulates with a cane but has been feeling too weak to walk the past few days. He last had his mckenzie changed 2-3 weeks ago but not remember the exact day. Patient complains of mild testicular pain, states that he sat down hard a few days ago and has had pain since. He follows up with Dr. Avelar for urology. He takes Plavix and ASA at home. Patient has prostate surgery planned for May. Denies chest pain, abd pain, N/V, headache. ER course was notable for: (1) UA positive for UTI (2) Ceftriaxone x1 given PAST MEDICAL HISTORY: HTN, HLD, severe , TAVR, CKD (baseline Cr 2.3), BPH, macular degeneration ( left eye worse than right) anxiety PAST SURGICAL HISTORY: TAVR, appendectomy Social History: Smoking: quit in the Alcohol: denies Drugs: denies Allergies erythromycin base Allergy (Severe, Verified 05/08/19 12:56) Difficulty Breathing triamcinolone Allergy (Intermediate, Verified 05/08/19 12:56) Rash naproxen [From Naprosyn] Allergy (Verified 05/08/19 12:56) HOME MEDICATIONS: Home Medications Medication Instructions Recorded Allopurinol [Zyloprim -] 100 mg PO DAILY 05/20/14 Levothyroxine [Synthroid -] 50 mcg PO DAILY 05/20/14 Silodosin [Rapaflo] 8 mg PO DAILY 05/20/14 Finasteride 5 mg PO DAILY 11/03/18 Magnesium Oxide 420 mg PO DAILY 11/03/18 Tamsulosin HCl [Flomax] 0.4 mg PO DAILY 11/03/18 Aspirin [ASA -] 81 mg PO DAILY 11/29/18 Clopidogrel Bisulfate [Clopidogrel] 75 mg PO DAILY 11/29/18 Pantoprazole Sodium 40 mg PO DAILY 11/29/18 Amlodipine Besylate 5 mg PO DAILY 12/06/18 Atorvastatin Ca [Lipitor] 10 mg PO DAILY 12/06/18 Furosemide [Lasix -] 20 mg PO DAILY 12/06/18 Metoprolol Tartrate 12.5 mg PO BID 12/06/18 Cefpodoxime Proxetil [Vantin -] 100 mg PO BID tablet 12/08/18 Lidocaine 2% Uro-Jet [Xylocaine 2% 2 ml TP Q8H PRN cartridge 12/08/18 Uro-Jet] REVIEW OF SYSTEMS As per HPI PHYSICAL EXAMINATION Vital Signs - 24 hr 05/08/19 12:51 Temperature 97.6 F Pulse Rate 109 H Respiratory 18 Rate Blood Pressure 131/56 L O2 Sat by Pulse 96 Oximetry (%) GENERAL: Awake, alert, and fully oriented, in no acute distress. HEAD: Normal with no signs of trauma. EYES: PERRL, EOMI, left side ptosis EARS, NOSE, THROAT: oropharynx clear without exudates. Moist mucous membranes. decreased hearing NECK: trachea midline, supple, no cervical lymphadenopathy LUNGS: Breath sounds equal, clear to auscultation bilaterally. No wheezes, and no crackles. No accessory muscle use. HEART: Regular rate and rhythm, normal S1 and S2 without murmur, rub or gallop. ABDOMEN: Soft, nontender, not distended, normoactive bowel sounds, no guarding, no rebound, no masses. No suprapubic tenderness to palpation : mckenzie in place, scrotal erythema with mild tenderness to palpation MUSCULOSKELETAL: No bony deformities or tenderness. No CVA tenderness. EXTREMITIES: 2+ pulses, warm, well-perfused. No calf tenderness. 2+ non pitting edema of bilateral extremities NEUROLOGICAL: Normal speech, gait not oberseved. sensation intact throughout PSYCHIATRIC: Cooperative. Good eye contact. Appropriate mood and affect. SKIN: Warm, dry, normal turgor, normal capillary refill. 5x2cm erythematous blanching rash on right hagen with scratch max noted Laboratory Results - last 24 hr 05/08/19 05/08/19 05/08/19 14:00 14:00 14:00 WBC 15.1 H RBC 3.61 L Hgb 10.7 L Hct 33.2 L D MCV 92.0 MCH 29.8 MCHC 32.4 RDW 17.8 H Plt Count 176 D MPV 8.4 Absolute Neuts (auto) 13.8 H Total Counted 100 Neutrophils % 91.7 H D Neutrophils % (Manual) 93.0 H D Band Neutrophils % 2.0 Lymphocytes % 3.1 L D Lymphocytes % (Manual) 3.0 L D Monocytes % 4.1 Monocytes % (Manual) 2 L D Eosinophils % 0.7 D Basophils % 0.4 Nucleated RBC % 0 Hypochromia 1+ Platelet Estimate Adequate Platelet Comment No clumping noted Sodium 137 Potassium 4.3 Chloride 109 H Carbon Dioxide 22 Anion Gap 6 L BUN 36.3 H Creatinine 2.3 H Est GFR (CKD-EPI)AfAm 29.34 Est GFR (CKD-EPI)NonAf 25.31 Random Glucose 146 H Calcium 8.7 Total Bilirubin 0.4 AST 27 ALT 39 Alkaline Phosphatase 112 Creatine Kinase 94 Troponin I < 0.02 Total Protein 7.3 Albumin 3.6 Lipase 93 Urine Color Urine Appearance Urine pH Ur Specific [place] Urine Protein Urine Glucose (UA) Urine Ketones Urine Blood Urine Nitrite Urine Bilirubin Urine Urobilinogen Ur Leukocyte Esterase Urine WBC (Auto) Urine RBC (Auto) Urine Casts (Auto) U Epithel Cells (Auto) Urine Bacteria (Auto) Influenza A (Rapid) Negative Influenza B (Rapid) Negative 05/08/19 14:00 WBC RBC Hgb Hct MCV MCH MCHC RDW Plt Count MPV Absolute Neuts (auto) Total Counted Neutrophils % Neutrophils % (Manual) Band Neutrophils % Lymphocytes % Lymphocytes % (Manual) Monocytes % Monocytes % (Manual) Eosinophils % Basophils % Nucleated RBC % Hypochromia Platelet Estimate Platelet Comment Sodium Potassium Chloride Carbon Dioxide Anion Gap BUN Creatinine Est GFR (CKD-EPI)AfAm Est GFR (CKD-EPI)NonAf Random Glucose Calcium Total Bilirubin AST ALT Alkaline Phosphatase Creatine Kinase Troponin I Total Protein Albumin Lipase Urine Color Yellow Urine Appearance Cloudy Urine pH 7.5 D Ur Specific [place] 1.019 Urine Protein 3+ H Urine Glucose (UA) Negative Urine Ketones Negative Urine Blood 2+ H Urine Nitrite Negative Urine Bilirubin Negative Urine Urobilinogen 0.2 Ur Leukocyte Esterase 2+ H Urine WBC (Auto) 145 Urine RBC (Auto) 28 Urine Casts (Auto) 33 U Epithel Cells (Auto) 1.4 Urine Bacteria (Auto) >9000 Influenza A (Rapid) Influenza B (Rapid) ASSESSMENT/PLAN: 84 y/o/m with PMHx of HTN, HLD, severe , TAVR, CKD (baseline Cr 2.3), BPH, macular degeneration (left eye worse than right) anxiety with an indwelling mckenzie since November of this year here for chills, fever, and weakness x5 days. Found to have UA positive for UTI. Admitted for sepsis 2/2 UTI. #Sepsis 2/2 UTI - initial UA grossly positive for UTI, however urine taken from old mckenzie bag. Will repeat UA with clean mckenzie - replace mckenzie - Ceftriaxone x1 given in ED. Continue Ceftriaxone based on previous urine cultures - f/u Urine culture, blood cultures - WBC 15.1, continue to monitor - flu studies negative #BPH - continue home Flomax - continue mckenzie #HTN - Continue Amlodipine, Metoprolol - hold lasix #HLD - continue home statin #Hypothyroidism - continue home synthroid dose #CKD - Cr at baseline, continue to monitor #Gout - continue home allopurinol - no active gout flare #Prophylaxis - Heparin - Plavix #FEN - NS @50mls/hr [id number] - Sodium/cholesterol controlled diet - encourage PO fluid intake #Disposition - Admitted to med surg for sepsis 2/2 UTI Visit type - Emergency Visit Emergency Visit: Yes ED Registration Date: 05/08/19 Care time: The patient presented to the Emergency Department on the above date and was hospitalized for further evaluation of their emergent condition. - New Patient This patient is new to me today: Yes Date on this admission: 05/08/19 - Critical Care Critical Care patient: No ATTENDING PHYSICIAN STATEMENT I saw and evaluated the patient. I reviewed the resident's note and discussed the case with the resident. I agree with the resident's findings and plan as documented. SUBJECTIVE: OBJECTIVE: ASSESSMENT AND PLAN:
[2019-05-08] MEDS ORDERED: CEFTRIAXONE 1 GM/50 ML BAG ONE (17:25)
[2019-05-08] MEDS ORDERED: ACETAMINOPHEN INJECTION 100 ML IVPB ONE (17:59)
[2019-05-08] MEDS ORDERED: ACETAMINOPHEN 1000 MG/100 ML VIAL (NON FORMULARY) IVPB ONE (18:00)
[2019-05-08] MEDS: METOPROLOL TARTRATE 25 MG TABLET (FP) PO SCH (21:39)
[2019-05-08] MEDS: ATORVASTATIN CA 10 MG TABLET (FP) PO SCH (21:39)
[2019-05-08] MEDS: HEPARIN NA (PORCINE) 5,000 UNITS/ML 1ML VIAL SQ SCH (21:41)
[2019-05-09] MEDS: ACETAMINOPHEN 325 MG TABLET (FP) PO PRN ×2 (01:38→20:12)
[2019-05-09 02:34] VITALS: BMI 29.7
[2019-05-09] MEDS: LEVOTHYROXINE NA 50 MCG TABLET (FP) PO SCH (06:58)
[2019-05-09] MEDS: HEPARIN NA (PORCINE) 5,000 UNITS/ML 1ML VIAL SQ SCH ×3 (06:59→21:40)
[2019-05-09 08:47] LABS: BASO % 0.8 % (0-2.0); EOS % 2.2 % (0-4.5); HEMATOCRIT 30.2 % (35.4-49); HEMOGLOBIN 9.6 GM/dL (11.7-16.9); LYMPH % 7.7 % (8-40); MCH 29.6 pg (25.7-33.7); MCHC 31.8 g/dl (32.0-35.9); MEAN CELL VOLUME 92.9 fl (80-96); MEAN PLT VOLUME 9.2 fl (7.5-11.1); MONO % 6.4 % (3.8-10.2); NEUT % 82.9 % (42.8-82.8); PLATELET COUNT 138 K/MM3 (134-434); RBC 3.25 M/mm3 (4.00-5.60); RDW 17.9 % (11.9-15.9); WHITE BLOOD COUNT 12.1 K/mm3 (4.0-10.0)
[2019-05-09] MEDS ORDERED: cefTRIAXone SODIUM 1 GM VIAL ONE (08:53)
[2019-05-09] MEDS ORDERED: DEXTROSE 5%-WATER - 50 ML IVPB ONE (08:53)
[2019-05-09] MEDS: METOPROLOL TARTRATE 25 MG TABLET (FP) PO SCH ×2 (08:57→20:12)
[2019-05-09] MEDS: TAMSULOSIN HCL 0.4 MG CAP PO SCH (08:57)
[2019-05-09] MEDS: ASPIRIN COATED 81 MG TABLET.EC PO SCH (09:03)
[2019-05-09] MEDS: CLOPIDOGREL BISULFATE 75 MG TABLET (FP) PO SCH (09:09)
[2019-05-09] MEDS: amLODIPine BESYLATE 5 MG TABLET (FP) PO SCH (09:09)
[2019-05-09] MEDS: CEFTRIAXONE 1 GM in DEXTROSE 5%-WATER - 50 ML IVPB SCH (09:09)
[2019-05-09] MEDS: ALLOPURINOL 100 MG TABLET (FP) PO SCH (09:09)
[2019-05-09] MEDS: FINASTERIDE 5 MG TABLET (FP) PO SCH (09:10)
[2019-05-09] MEDS ORDERED: PATIENT'S OWN MEDICATION (NON-FORMULARY) (Silodosin [Rapaflo] 8 MG) PO SCH (10:00)
[2019-05-09 11:20] LABS: BILIRUBIN,TOTAL 0.4 mg/dL (0.2-1); BLOOD UREA NITROGEN 33.9 mg/dL (7-18); MAGNESIUM 1.9 mg/dL (1.8-2.4); PHOSPHOROUS 2.5 mg/dL (2.5-4.9); TOT PROT 6.3 g/dl (6.4-8.2)
--- NOTE | 2019-05-09 11:30 | EKG ---
Test Reason : Blood Pressure : / mmHG Vent. Rate : 097 BPM Atrial Rate : 097 BPM P-R Int : 156 ms QRS Dur : 128 ms QT Int : 410 ms P-R-T Axes : 021 -28 121 degrees QTc Int : 520 ms NORMAL SINUS RHYTHM LEFT BUNDLE BRANCH BLOCK ABNORMAL ECG WHEN COMPARED WITH ECG OF 07-DEC-2018 12:24, NO SIGNIFICANT CHANGE WAS FOUND Confirmed by TYSON ALMARAZ MD ([id number]) on 05/09/2019 11:30:12 AM Referred By: Confirmed By:TYSON ALMARAZ MD
--- NOTE | 2019-05-09 13:24 | PN ---
Teaching Attending Note Name of Resident: Paloma Vega ATTENDING PHYSICIAN STATEMENT I saw and evaluated the patient. I reviewed the resident's note and discussed the case with the resident. I agree with the resident's findings and plan as documented with exceptions below. SUBJECTIVE: patient seen and examined. Feels better, no further nausea. Weakness improved. OBJECTIVE: Vital Signs Period Temp Pulse Resp BP Sys/Franco Pulse Ox Last 24 Hr 98.4 F-102.8 F 85-120 18-20 116-136/54-79 94-94 Intake & Output 05/06/19 05/07/19 05/08/19 05/09/19 23:59 23:59 23:59 23:59 Intake Total 0 140 Output Total 150 600 Balance -150 -460 Weight 201 lb 8 oz General: lying in bed, no acute distress Chest: CTAB, no rales or wheezing Abdomen:Soft, obese, NT, no CVA or suprapubic tenderness Extremities: no edema Home Medications Medication Instructions Recorded Allopurinol [Zyloprim -] 100 mg PO DAILY 05/20/14 Levothyroxine [Synthroid -] 50 mcg PO DAILY 05/20/14 Silodosin [Rapaflo] 8 mg PO DAILY 05/20/14 Magnesium Oxide 420 mg PO DAILY 11/03/18 Aspirin [ASA -] 81 mg PO DAILY 11/29/18 Clopidogrel Bisulfate [Clopidogrel] 75 mg PO DAILY 11/29/18 Pantoprazole Sodium 40 mg PO DAILY 11/29/18 Amlodipine Besylate 5 mg PO DAILY 12/06/18 Atorvastatin Ca [Lipitor] 10 mg PO DAILY 12/06/18 Furosemide [Lasix -] 20 mg PO DAILY 12/06/18 Metoprolol Tartrate 12.5 mg PO BID 12/06/18 Active Medications Acetaminophen (Tylenol -) 650 mg PO Q6H PRN PRN Reason: FEVER Last Admin: 05/09/19 01:38 Dose: 650 mg Allopurinol (Zyloprim -) 100 mg PO DAILY [facility] Last Admin: 05/09/19 09:09 Dose: 100 mg Amlodipine Besylate (Norvasc -) 5 mg PO DAILY [facility] Last Admin: 05/09/19 09:09 Dose: 5 mg Aspirin (Ecotrin -) 81 mg PO DAILY [facility] Last Admin: 05/09/19 09:03 Dose: 81 mg Atorvastatin Calcium (Lipitor -) 10 mg PO HS [facility] Last Admin: 05/08/19 21:39 Dose: 10 mg Clopidogrel Bisulfate (Plavix -) 75 mg PO DAILY [facility] Last Admin: 05/09/19 09:09 Dose: 75 mg Finasteride (Proscar -) 5 mg PO DAILY [facility] Last Admin: 05/09/19 09:10 Dose: 5 mg Heparin Sodium (Porcine) (Heparin -) 5,000 unit SQ TID [facility] Last Admin: 05/09/19 06:59 Dose: 5,000 unit Ceftriaxone Sodium 1 gm/ (Dextrose) 50 mls @ 100 mls/hr IVPB DAILY [facility] Last Admin: 05/09/19 09:09 Dose: 100 mls/hr Levothyroxine Sodium (Synthroid -) 50 mcg PO DAILY@0700 [facility] Last Admin: 05/09/19 06:58 Dose: 50 mcg Metoprolol Tartrate (Lopressor -) 12.5 mg PO Q12H [facility] Last Admin: 05/09/19 08:57 Dose: 12.5 mg Tamsulosin HCl (Flomax -) 0.4 mg PO DAILY@0830 [facility] Last Admin: 05/09/19 08:57 Dose: 0.4 mg Laboratory Results - last 24 hr 05/08/19 05/08/19 05/08/19 14:00 14:00 14:00 WBC 15.1 H RBC 3.61 L Hgb 10.7 L Hct 33.2 L D MCV 92.0 MCH 29.8 MCHC 32.4 RDW 17.8 H Plt Count 176 D MPV 8.4 Absolute Neuts (auto) 13.8 H Total Counted 100 Neutrophils % 91.7 H D Neutrophils % (Manual) 93.0 H D Band Neutrophils % 2.0 Lymphocytes % 3.1 L D Lymphocytes % (Manual) 3.0 L D Monocytes % 4.1 Monocytes % (Manual) 2 L D Eosinophils % 0.7 D Basophils % 0.4 Nucleated RBC % 0 Hypochromia 1+ Platelet Estimate Adequate Platelet Comment No clumping noted Sodium 137 Potassium 4.3 Chloride 109 H Carbon Dioxide 22 Anion Gap 6 L BUN 36.3 H Creatinine 2.3 H Est GFR (CKD-EPI)AfAm 29.34 Est GFR (CKD-EPI)NonAf 25.31 Random Glucose 146 H Calcium 8.7 Phosphorus Magnesium Total Bilirubin 0.4 AST 27 ALT 39 Alkaline Phosphatase 112 Creatine Kinase 94 Troponin I < 0.02 Total Protein 7.3 Albumin 3.6 Lipase 93 Urine Color Urine Appearance Urine pH Ur Specific [place] Urine Protein Urine Glucose (UA) Urine Ketones Urine Blood Urine Nitrite Urine Bilirubin Urine Urobilinogen Ur Leukocyte Esterase Urine WBC (Auto) Urine RBC (Auto) Urine Casts (Auto) U Epithel Cells (Auto) Urine Bacteria (Auto) Influenza A (Rapid) Negative Influenza B (Rapid) Negative 05/08/19 05/08/19 05/09/19 14:00 16:45 07:45 WBC 12.1 H RBC 3.25 L Hgb 9.6 L Hct 30.2 L MCV 92.9 MCH 29.6 MCHC 31.8 L RDW 17.9 H Plt Count 138 D MPV 9.2 Absolute Neuts (auto) 10.0 H Total Counted Neutrophils % 82.9 H Neutrophils % (Manual) Band Neutrophils % Lymphocytes % 7.7 L D Lymphocytes % (Manual) Monocytes % 6.4 Monocytes % (Manual) Eosinophils % 2.2 D Basophils % 0.8 Nucleated RBC % 0 Hypochromia Platelet Estimate Platelet Comment Sodium Potassium Chloride Carbon Dioxide Anion Gap BUN Creatinine Est GFR (CKD-EPI)AfAm Est GFR (CKD-EPI)NonAf Random Glucose Calcium Phosphorus Magnesium Total Bilirubin AST ALT Alkaline Phosphatase Creatine Kinase Troponin I Total Protein Albumin Lipase Urine Color Yellow Yellow Urine Appearance Cloudy Turbid Urine pH 7.5 D 5.0 D Ur Specific [place] 1.019 1.015 Urine Protein 3+ H 2+ H Urine Glucose (UA) Negative Negative Urine Ketones Negative Negative Urine Blood 2+ H 1+ H Urine Nitrite Negative Negative Urine Bilirubin Negative Negative Urine Urobilinogen 0.2 0.2 Ur Leukocyte Esterase 2+ H 2+ H Urine WBC (Auto) 145 468 Urine RBC (Auto) 28 10 Urine Casts (Auto) 33 2 U Epithel Cells (Auto) 1.4 1.1 Urine Bacteria (Auto) >9000 2134.6 Influenza A (Rapid) Influenza B (Rapid) 05/09/19 09:45 WBC RBC Hgb Hct MCV MCH MCHC RDW Plt Count MPV Absolute Neuts (auto) Total Counted Neutrophils % Neutrophils % (Manual) Band Neutrophils % Lymphocytes % Lymphocytes % (Manual) Monocytes % Monocytes % (Manual) Eosinophils % Basophils % Nucleated RBC % Hypochromia Platelet Estimate Platelet Comment Sodium 139 Potassium 4.0 Chloride 109 H Carbon Dioxide 21 Anion Gap 10 BUN 33.9 H Creatinine 2.0 H Est GFR (CKD-EPI)AfAm 34.74 Est GFR (CKD-EPI)NonAf 29.97 Random Glucose 133 H Calcium 8.0 L Phosphorus 2.5 Magnesium 1.9 Total Bilirubin 0.4 AST 36 ALT 44 Alkaline Phosphatase 103 Creatine Kinase Troponin I Total Protein 6.3 L Albumin 3.0 L Lipase Urine Color Urine Appearance Urine pH Ur Specific [place] Urine Protein Urine Glucose (UA) Urine Ketones Urine Blood Urine Nitrite Urine Bilirubin Urine Urobilinogen Ur Leukocyte Esterase Urine WBC (Auto) Urine RBC (Auto) Urine Casts (Auto) U Epithel Cells (Auto) Urine Bacteria (Auto) Influenza A (Rapid) Influenza B (Rapid) ASSESSMENT AND PLAN: 84 yom with PMhx of BPH/Chronic urinary retention with mckenzie (planned for intervention in 05/2019 as needs to be on plavix), 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 -Sepsis -Complicated UTI -BPH with Chronic urinary retention/indwelling mckenzie - s/p TAVR 11/23/2018 -CAD s/p PCI OM 12/01 -Diastolic HF exacerbation -CKD stage III -HTN -HLD -Gout -Hypothyroidism Plan: Mckenzie replaced in the ED, repeat ua noted. follow up repeat urine cx and blood cx. Clinically improved. Ceftriaxone day 2. Continue flomax/finasteride IVF prn. HOld lasix. Encourage oral intake. Planned for urological intervention in 05/2019 when able to get off plavix given recent PCI. Continue ASA/plavix/Metoprolol/Statin/Amlodipine/Allopurinol DVTPPX heparin PT eval Dispo in 1-2 days pending clinical improvement and culture results. Plan discussed with patient, all questions answered.
--- NOTE | 2019-05-09 19:00 | PN ---
Physical Exam: SUBJECTIVE: Patient seen and examined. No acute events overnight. States that he is feeling better. OBJECTIVE: Vital Signs Period Temp Pulse Resp BP Sys/Franco Pulse Ox Last 24 Hr 98.4 F-101.4 F 85-106 18-18 116-136/54-79 94-94 GENERAL: Awake, alert, and fully oriented, in no acute distress. HEAD: Normal with no signs of trauma. EYES: PERRL, EOMI, left side ptosis EARS, NOSE, THROAT: oropharynx clear without exudates. Moist mucous membranes. decreased hearing NECK: trachea midline, supple, no cervical lymphadenopathy LUNGS: Breath sounds equal, clear to auscultation bilaterally. No wheezes, and no crackles. No accessory muscle use. HEART: Regular rate and rhythm, normal S1 and S2 without murmur, rub or gallop. ABDOMEN: Soft, nontender, not distended, normoactive bowel sounds, no guarding, no rebound, no masses. No suprapubic tenderness to palpation EXTREMITIES: 2+ pulses, warm, well-perfused. No calf tenderness. 2+ non pitting edema of bilateral extremities NEUROLOGICAL: Normal speech, gait not oberseved. sensation intact throughout PSYCHIATRIC: Cooperative. Good eye contact. Appropriate mood and affect. SKIN: Warm, dry, normal turgor, normal capillary refill Laboratory Results - last 24 hr 05/09/19 05/09/19 07:45 09:45 WBC 12.1 H RBC 3.25 L Hgb 9.6 L Hct 30.2 L MCV 92.9 MCH 29.6 MCHC 31.8 L RDW 17.9 H Plt Count 138 D MPV 9.2 Absolute Neuts (auto) 10.0 H Neutrophils % 82.9 H Lymphocytes % 7.7 L D Monocytes % 6.4 Eosinophils % 2.2 D Basophils % 0.8 Nucleated RBC % 0 Sodium 139 Potassium 4.0 Chloride 109 H Carbon Dioxide 21 Anion Gap 10 BUN 33.9 H Creatinine 2.0 H Est GFR (CKD-EPI)AfAm 34.74 Est GFR (CKD-EPI)NonAf 29.97 Random Glucose 133 H Calcium 8.0 L Phosphorus 2.5 Magnesium 1.9 Total Bilirubin 0.4 AST 36 ALT 44 Alkaline Phosphatase 103 Total Protein 6.3 L Albumin 3.0 L Active Medications Generic Name Dose Route Start Last Admin Trade Name Freq PRN Reason Stop Dose Admin Acetaminophen 650 mg 05/08/19 18:05 05/09/19 01:38 Tylenol - PO 650 mg Q6H PRN Administration FEVER Allopurinol 100 mg 05/09/19 10:00 05/09/19 09:09 Zyloprim - PO 100 mg DAILY ANGELA Administration Amlodipine Besylate 5 mg 05/09/19 10:00 05/09/19 09:09 Norvasc - PO 5 mg DAILY ANGELA Administration Aspirin 81 mg 05/09/19 10:00 05/09/19 09:03 Ecotrin - PO 81 mg DAILY ANGELA Administration Atorvastatin Calcium 10 mg 05/08/19 22:00 05/08/19 21:39 Lipitor - PO 10 mg HS ANGELA Administration Clopidogrel Bisulfate 75 mg 05/09/19 10:00 05/09/19 09:09 Plavix - PO 75 mg DAILY [facility]A Administration Finasteride 5 mg 05/09/19 10:00 05/09/19 09:10 Proscar - PO 5 mg DAILY [facility]A Administration Heparin Sodium (Porcine) 5,000 unit 05/08/19 22:00 05/09/19 14:14 Heparin - SQ 5,000 unit TID ANGELA Administration Ceftriaxone Sodium 1 gm/ 50 mls @ 100 mls/hr 05/09/19 10:00 05/09/19 09:09 Dextrose IVPB 100 mls/hr DAILY [facility] Administration Levothyroxine Sodium 50 mcg 05/09/19 07:00 05/09/19 06:58 Synthroid - PO 50 mcg DAILY@0700 [facility] Administration Metoprolol Tartrate 12.5 mg 05/08/19 20:00 05/09/19 08:57 Lopressor - PO 12.5 mg Q12H [facility] Administration Tamsulosin HCl 0.4 mg 05/09/19 08:30 05/09/19 08:57 Flomax - PO 0.4 mg DAILY@0830 [facility] Administration ASSESSMENT/PLAN: 84 y/o/m with PMHx of HTN, HLD, severe , TAVR, CKD (baseline Cr 2.3), BPH, macular degeneration (left eye worse than right) anxiety with an indwelling mckenzie since November of this year here for chills, fever, and weakness x5 days. Found to have UA positive for UTI. Admitted for sepsis 2/2 UTI. #Sepsis 2/2 UTI - Repeat UA still positive for UTI - mckenzie replaced in ED - Ceftriaxone x1 given in ED. Continue Ceftriaxone based on previous urine cultures - f/u Urine culture, blood cultures - WBC 12.1, improving, continue to monitor - flu studies negative #BPH - continue home Flomax - continue mckenzie #HTN - Continue Amlodipine, Metoprolol - hold lasix #HLD - continue home statin #Hypothyroidism - continue home synthroid dose #CKD - Cr at baseline, continue to monitor #Gout - continue home allopurinol - no active gout flare #Prophylaxis - Heparin - Plavix #FEN - Sodium/cholesterol controlled diet - encourage PO fluid intake #Disposition - Continue current management, D/C pending further improvement Visit type - Emergency Visit Emergency Visit: Yes ED Registration Date: 05/08/19 Care time: The patient presented to the Emergency Department on the above date and was hospitalized for further evaluation of their emergent condition. - New Patient This patient is new to me today: No - Critical Care Critical Care patient: No ATTENDING PHYSICIAN STATEMENT I saw and evaluated the patient. I reviewed the resident's note and discussed the case with the resident. I agree with the resident's findings and plan as documented. SUBJECTIVE: OBJECTIVE: ASSESSMENT AND PLAN:
[2019-05-09] MEDS: ATORVASTATIN CA 10 MG TABLET (FP) PO SCH (21:40)
[2019-05-10] MEDS: HEPARIN NA (PORCINE) 5,000 UNITS/ML 1ML VIAL SQ SCH ×3 (06:27→21:15)
[2019-05-10] MEDS: LEVOTHYROXINE NA 50 MCG TABLET (FP) PO SCH (06:27)
[2019-05-10 08:42] LABS: BASO % 0.6 % (0-2.0); EOS % 3.4 % (0-4.5); HEMATOCRIT 30.2 % (35.4-49); LYMPH % 6.5 % (8-40); MCH 30.1 pg (25.7-33.7); MCHC 33.1 g/dl (32.0-35.9); MEAN CELL VOLUME 90.9 fl (80-96); MEAN PLT VOLUME 8.1 fl (7.5-11.1); MONO % 8.9 % (3.8-10.2); NEUT % 80.6 % (42.8-82.8); PLATELET COUNT 177 K/MM3 (134-434); RBC 3.32 M/mm3 (4.00-5.60); RDW 17.3 % (11.9-15.9); WHITE BLOOD COUNT 7.2 K/mm3 (4.0-10.0)
[2019-05-10 09:11] LABS: ALBUMIN 2.9 g/dl (3.4-5.0); BILIRUBIN,TOTAL 0.2 mg/dL (0.2-1); BLOOD UREA NITROGEN 29.8 mg/dL (7-18); CALCIUM 8.2 mg/dL (8.5-10.1); CREATININE 1.8 mg/dL (0.55-1.3); POTASSIUM 4.1 mmol/L (3.5-5.1); TOT PROT 6.2 g/dl (6.4-8.2)
[2019-05-10] MEDS ORDERED: DEXTROSE 5%-WATER - 50 ML IVPB ONE (10:40)
[2019-05-10] MEDS ORDERED: cefTRIAXone SODIUM 1 GM VIAL ONE (10:40)
[2019-05-10] MEDS: CLOPIDOGREL BISULFATE 75 MG TABLET (FP) PO SCH (10:46)
[2019-05-10] MEDS: METOPROLOL TARTRATE 25 MG TABLET (FP) PO SCH ×2 (10:46→21:15)
[2019-05-10] MEDS: ASPIRIN COATED 81 MG TABLET.EC PO SCH (10:46)
[2019-05-10] MEDS: FINASTERIDE 5 MG TABLET (FP) PO SCH (10:46)
[2019-05-10] MEDS: TAMSULOSIN HCL 0.4 MG CAP PO SCH (10:46)
[2019-05-10] MEDS: ALLOPURINOL 100 MG TABLET (FP) PO SCH (10:46)
[2019-05-10] MEDS: amLODIPine BESYLATE 5 MG TABLET (FP) PO SCH (10:47)
[2019-05-10] MEDS: CEFTRIAXONE 1 GM in DEXTROSE 5%-WATER - 50 ML IVPB SCH (10:47)
--- NOTE | 2019-05-10 11:43 | PN ---
Physical Exam: SUBJECTIVE: Patient seen and examined. Complains of mild scrotal pain when moving, explained that scrotal U/S did not show any acute pathology. Patient was febrile overnight at 101.9F, given tylenol with improvement. Denies chest pain, abd pain, SOB. OBJECTIVE: Vital Signs Period Temp Pulse Resp BP Sys/Franco Pulse Ox Last 24 Hr 98.3 F-101.9 F 86-106 18-20 113-147/51-79 96 GENERAL: Awake, alert, and fully oriented, in no acute distress. HEAD: Normal with no signs of trauma. EYES: PERRL, EOMI, left side ptosis EARS, NOSE, THROAT: oropharynx clear without exudates. Moist mucous membranes. decreased hearing NECK: trachea midline, supple, no cervical lymphadenopathy LUNGS: Breath sounds equal, clear to auscultation bilaterally. No wheezes, and no crackles. No accessory muscle use. HEART: Regular rate and rhythm, normal S1 and S2 without murmur, rub or gallop. ABDOMEN: Soft, nontender, not distended, normoactive bowel sounds, no guarding, no rebound, no masses. No suprapubic tenderness to palpation : mckenzie in place. Mild scrotal tenderness to palpation without significant erythema or swelling. EXTREMITIES: 2+ pulses, warm, well-perfused. No calf tenderness. 2+ non pitting edema of bilateral extremities NEUROLOGICAL: Normal speech, gait not oberseved. sensation intact throughout PSYCHIATRIC: Cooperative. Good eye contact. Appropriate mood and affect. SKIN: Warm, dry, normal turgor, normal capillary refill Laboratory Results - last 24 hr 05/10/19 05/10/19 08:15 08:15 WBC 7.2 RBC 3.32 L Hgb 10.0 L Hct 30.2 L MCV 90.9 MCH 30.1 MCHC 33.1 RDW 17.3 H Plt Count 177 D MPV 8.1 D Absolute Neuts (auto) 5.8 Neutrophils % 80.6 Lymphocytes % 6.5 L Monocytes % 8.9 Eosinophils % 3.4 Basophils % 0.6 Nucleated RBC % 0 Sodium 139 Potassium 4.1 Chloride 109 H Carbon Dioxide 24 Anion Gap 6 L BUN 29.8 H Creatinine 1.8 H Est GFR (CKD-EPI)AfAm 39.46 Est GFR (CKD-EPI)NonAf 34.05 Random Glucose 112 H Calcium 8.2 L Total Bilirubin 0.2 AST 46 H ALT 54 Alkaline Phosphatase 102 Total Protein 6.2 L Albumin 2.9 L Active Medications Generic Name Dose Route Start Last Admin Trade Name Jeanie PRN Reason Stop Dose Admin Acetaminophen 650 mg 05/08/19 18:05 05/09/19 20:12 Tylenol - PO 650 mg Q6H PRN Administration FEVER Allopurinol 100 mg 05/09/19 10:00 05/10/19 10:46 Zyloprim - PO 100 mg DAILY [facility]A Administration Amlodipine Besylate 5 mg 05/09/19 10:00 05/10/19 10:47 Norvasc - PO 5 mg DAILY [facility]A Administration Aspirin 81 mg 05/09/19 10:00 05/10/19 10:46 Ecotrin - PO 81 mg DAILY ANG[facility]A Administration Atorvastatin Calcium 10 mg 05/08/19 22:00 05/09/19 21:40 Lipitor - PO 10 mg HS ANGELA Administration Clopidogrel Bisulfate 75 mg 05/09/19 10:00 05/10/19 10:46 Plavix - PO 75 mg DAILY [facility] Administration Finasteride 5 mg 05/09/19 10:00 05/10/19 10:46 Proscar - PO 5 mg DAILY [facility] Administration Heparin Sodium (Porcine) 5,000 unit 05/08/19 22:00 05/10/19 06:27 Heparin - SQ 5,000 unit TID ANGELA Administration Ceftriaxone Sodium 1 gm/ 50 mls @ 100 mls/hr 05/09/19 10:00 05/10/19 10:47 Dextrose IVPB 100 mls/hr DAILY ANGELA Administration Levothyroxine Sodium 50 mcg 05/09/19 07:00 05/10/19 06:27 Synthroid - PO 50 mcg DAILY@0700 [facility] Administration Metoprolol Tartrate 12.5 mg 05/08/19 20:00 05/10/19 10:46 Lopressor - PO 12.5 mg Q12H ANG[facility]A Administration Tamsulosin HCl 0.4 mg 05/09/19 08:30 05/10/19 10:46 Flomax - PO 0.4 mg DAILY@0830 [facility] Administration ASSESSMENT/PLAN: 84 y/o/m with PMHx of HTN, HLD, severe , TAVR, CKD (baseline Cr 2.3), BPH, macular degeneration (left eye worse than right) anxiety with an indwelling mckenzie since November of this year here for chills, fever, and weakness x5 days. Found to have UA positive for UTI. Admitted for sepsis 2/2 UTI. #Sepsis 2/2 UTI - Repeat UA still positive for UTI - mckenzie replaced in ED - Ceftriaxone x1 given in ED. Continue Ceftriaxone based on previous urine cultures - blood cultures negative to date - Urine cultures growing lactose fermenting neg bascilli and staph latex coag pos - WBC improving, continue to monitor - flu studies negative - F/u CXR #BPH - continue home Flomax - continue mckenzie #HTN - Continue Amlodipine, Metoprolol - hold lasix #HLD - continue home statin #Hypothyroidism - continue home synthroid dose #CKD - Cr at baseline, continue to monitor #Gout - continue home allopurinol - no active gout flare #Prophylaxis - Heparin - Plavix #FEN - Sodium/cholesterol controlled diet - encourage PO fluid intake #Disposition - D/C pending further improvement when patient is afebrile for >24hours Visit type - Emergency Visit Emergency Visit: Yes ED Registration Date: 05/08/19 Care time: The patient presented to the Emergency Department on the above date and was hospitalized for further evaluation of their emergent condition. - New Patient This patient is new to me today: No - Critical Care Critical Care patient: No ATTENDING PHYSICIAN STATEMENT I saw and evaluated the patient. I reviewed the resident's note and discussed the case with the resident. I agree with the resident's findings and plan as documented. SUBJECTIVE: OBJECTIVE: ASSESSMENT AND PLAN:
--- NOTE | 2019-05-10 16:00 | PN ---
Teaching Attending Note Name of Resident: Paloma Vega ATTENDING PHYSICIAN STATEMENT I saw and evaluated the patient. I reviewed the resident's note and discussed the case with the resident. I agree with the resident's findings and plan as documented. SUBJECTIVE: Patient says he is feeling better. He denies abd pain, chills, SOB. OBJECTIVE: Vital Signs Period Temp Pulse Resp BP Sys/Franco Pulse Ox Last 24 Hr 98.3 F-101.9 F 88-106 18-20 113-147/51-79 96 HEART: S1S2, RRR LUNGS: Bibasilar crackles ABDOMEN: Soft, non-tender, non-distended, normal BS EXTREMITIES: 1+ edema RLE Laboratory Results - last 24 hr 05/10/19 05/10/19 08:15 08:15 WBC 7.2 RBC 3.32 L Hgb 10.0 L Hct 30.2 L MCV 90.9 MCH 30.1 MCHC 33.1 RDW 17.3 H Plt Count 177 D MPV 8.1 D Absolute Neuts (auto) 5.8 Neutrophils % 80.6 Lymphocytes % 6.5 L Monocytes % 8.9 Eosinophils % 3.4 Basophils % 0.6 Nucleated RBC % 0 Sodium 139 Potassium 4.1 Chloride 109 H Carbon Dioxide 24 Anion Gap 6 L BUN 29.8 H Creatinine 1.8 H Est GFR (CKD-EPI)AfAm 39.46 Est GFR (CKD-EPI)NonAf 34.05 Random Glucose 112 H Calcium 8.2 L Total Bilirubin 0.2 AST 46 H ALT 54 Alkaline Phosphatase 102 Total Protein 6.2 L Albumin 2.9 L Current Medications Generic Name Dose Route Start Last Admin Trade Name Freq PRN Reason Stop Dose Admin Acetaminophen 650 mg 05/08/19 18:05 05/09/19 20:12 Tylenol - PO 650 mg Q6H PRN Administration FEVER Allopurinol 100 mg 05/09/19 10:00 05/10/19 10:46 Zyloprim - PO 100 mg DAILY ANGELA Administration Amlodipine Besylate 5 mg 05/09/19 10:00 05/10/19 10:47 Norvasc - PO 5 mg DAILY ANGELA Administration Aspirin 81 mg 05/09/19 10:00 05/10/19 10:46 Ecotrin - PO 81 mg DAILY ANGELA Administration Atorvastatin Calcium 10 mg 05/08/19 22:00 05/09/19 21:40 Lipitor - PO 10 mg HS ANGELA Administration Clopidogrel Bisulfate 75 mg 05/09/19 10:00 05/10/19 10:46 Plavix - PO 75 mg DAILY ANGELA Administration Finasteride 5 mg 05/09/19 10:00 05/10/19 10:46 Proscar - PO 5 mg DAILY ANGELA Administration Heparin Sodium (Porcine) 5,000 unit 05/08/19 22:00 05/10/19 15:20 Heparin - SQ 5,000 unit TID ANGELA Administration Ceftriaxone Sodium 1 gm/ 50 mls @ 100 mls/hr 05/09/19 10:00 05/10/19 10:47 Dextrose IVPB 100 mls/hr DAILY ANGELA Administration Levothyroxine Sodium 50 mcg 05/09/19 07:00 05/10/19 06:27 Synthroid - PO 50 mcg DAILY@0700 ANG[facility]A Administration Metoprolol Tartrate 12.5 mg 05/08/19 20:00 05/10/19 10:46 Lopressor - PO 12.5 mg Q12H ANGELA Administration Tamsulosin HCl 0.4 mg 05/09/19 08:30 05/10/19 10:46 Flomax - PO 0.4 mg DAILY@0830 ANGELA Administration ASSESSMENT AND PLAN: This is an 84 year old man with a history of HTN, hyperlipidemia, CAD, , TAVR , chronic diastolic heart failure, stage 3 CKD, BPH, macular degeneration, gout , anxiety who presented to the ED with fever, chills, and weakness. 1. Sepsis secondary to indwelling Chauhan catheter infection - Chauhan changed - Continue ceftriaxone - Urine culture growing Staph and gram neg rods 2. HTN - Continue Norvasc, Lopressor 3. Hyperlipidemia - Continue Lipitor 4. BPH - Continue Flomax, Proscar 5. Stage 3 CKD - Stable 6. Hypothyroidism - Continue Synthroid 7. CAD, history of PCI - Continue Lopressor, aspirin, Plavix, Lipitor 8. , history of TAVR 9. Chronic diastolic heart failure - Stable 10. History of gout - Continue Allopurinol
[2019-05-10] MEDS: ATORVASTATIN CA 10 MG TABLET (FP) PO SCH (21:15)
[2019-05-11] MEDS: HEPARIN NA (PORCINE) 5,000 UNITS/ML 1ML VIAL SQ SCH ×3 (06:40→21:02)
[2019-05-11] MEDS: LEVOTHYROXINE NA 50 MCG TABLET (FP) PO SCH (06:40)
[2019-05-11 08:03] LABS: HEMATOCRIT 30.2 % (35.4-49); HEMOGLOBIN 9.9 GM/dL (11.7-16.9); MCH 29.7 pg (25.7-33.7); MCHC 32.9 g/dl (32.0-35.9); MEAN CELL VOLUME 90.4 fl (80-96); PLATELET COUNT 207 K/MM3 (134-434); RBC 3.34 M/mm3 (4.00-5.60); WHITE BLOOD COUNT 5.2 K/mm3 (4.0-10.0)
[2019-05-11 08:36] LABS: ALBUMIN 2.8 g/dl (3.4-5.0); BILIRUBIN,TOTAL 0.2 mg/dL (0.2-1); BLOOD UREA NITROGEN 31.6 mg/dL (7-18); CALCIUM 8.4 mg/dL (8.5-10.1); CREATININE 1.6 mg/dL (0.55-1.3); MAGNESIUM 2.2 mg/dL (1.8-2.4); PHOSPHOROUS 2.7 mg/dL (2.5-4.9); POTASSIUM 4.1 mmol/L (3.5-5.1); TOT PROT 6.3 g/dl (6.4-8.2)
[2019-05-11] MEDS ORDERED: cefTRIAXone SODIUM 1 GM VIAL ONE (09:27)
[2019-05-11] MEDS ORDERED: DEXTROSE 5%-WATER - 50 ML IVPB ONE (09:28)
[2019-05-11] MEDS: METOPROLOL TARTRATE 25 MG TABLET (FP) PO SCH ×2 (09:58→21:02)
[2019-05-11] MEDS: CEFTRIAXONE 1 GM in DEXTROSE 5%-WATER - 50 ML IVPB SCH (09:58)
[2019-05-11] MEDS: TAMSULOSIN HCL 0.4 MG CAP PO SCH (09:58)
[2019-05-11] MEDS: CLOPIDOGREL BISULFATE 75 MG TABLET (FP) PO SCH (09:59)
[2019-05-11] MEDS: ASPIRIN COATED 81 MG TABLET.EC PO SCH (09:59)
[2019-05-11] MEDS: FINASTERIDE 5 MG TABLET (FP) PO SCH (09:59)
[2019-05-11] MEDS: ALLOPURINOL 100 MG TABLET (FP) PO SCH (09:59)
[2019-05-11] MEDS: amLODIPine BESYLATE 5 MG TABLET (FP) PO SCH (10:01)
--- NOTE | 2019-05-11 10:25 | PN ---
Physical Exam: SUBJECTIVE: Patient seen and examined. He has no new complaints. OBJECTIVE: Vital Signs Period Temp Pulse Resp BP Sys/Franco Pulse Ox Last 24 Hr 97.7 F-99.3 F 80-92 20-20 130-136/68-72 96 GENERAL: The patient is awake, alert, and fully oriented, in no acute distress. LUNGS: Breath sounds equal, clear to auscultation bilaterally, no wheezes, no crackles, no accessory muscle use. HEART: Regular rate and rhythm, S1, S2 without murmur, rub or gallop. ABDOMEN: Soft, nontender, nondistended, normoactive bowel sounds, no guarding, no rebound, no hepatosplenomegaly, no masses. EXTREMITIES: 2+ pulses, warm, well-perfused, 1+ edema of RLE. : Scrotum swollen on left. Laboratory Results - last 24 hr 05/11/19 05/11/19 06:00 06:54 WBC 5.2 RBC 3.34 L Hgb 9.9 L Hct 30.2 L MCV 90.4 MCH 29.7 MCHC 32.9 RDW 17.0 H Plt Count 207 MPV 8.0 Sodium 139 Potassium 4.1 Chloride 109 H Carbon Dioxide 23 Anion Gap 7 L BUN 31.6 H Creatinine 1.6 H Est GFR (CKD-EPI)AfAm 45.50 Est GFR (CKD-EPI)NonAf 39.26 Random Glucose 107 H Calcium 8.4 L Phosphorus 2.7 Magnesium 2.2 Total Bilirubin 0.2 AST 67 H ALT 87 H Alkaline Phosphatase 106 Total Protein 6.3 L Albumin 2.8 L Active Medications Generic Name Dose Route Start Last Admin Trade Name Eliecerq PRN Reason Stop Dose Admin Acetaminophen 650 mg 05/08/19 18:05 05/09/19 20:12 Tylenol - PO 650 mg Q6H PRN Administration FEVER Allopurinol 100 mg 05/09/19 10:00 05/11/19 09:59 Zyloprim - PO 100 mg DAILY ANGELA Administration Amlodipine Besylate 5 mg 05/09/19 10:00 05/11/19 10:01 Norvasc - PO 5 mg DAILY ANGELA Administration Aspirin 81 mg 05/09/19 10:00 05/11/19 09:59 Ecotrin - PO 81 mg DAILY ANGELA Administration Atorvastatin Calcium 10 mg 05/08/19 22:00 05/10/19 21:15 Lipitor - PO 10 mg HS ANGELA Administration Clopidogrel Bisulfate 75 mg 05/09/19 10:00 05/11/19 09:59 Plavix - PO 75 mg DAILY ANGELA Administration Finasteride 5 mg 05/09/19 10:00 05/11/19 09:59 Proscar - PO 5 mg DAILY ANGELA Administration Heparin Sodium (Porcine) 5,000 unit 05/08/19 22:00 05/11/19 06:40 Heparin - SQ 5,000 unit TID ANGELA Administration Ceftriaxone Sodium 1 gm/ 50 mls @ 100 mls/hr 05/09/19 10:00 05/11/19 09:58 Dextrose IVPB 100 mls/hr DAILY ANGELA Administration Levothyroxine Sodium 50 mcg 05/09/19 07:00 05/11/19 06:40 Synthroid - PO 50 mcg DAILY@0700 ANGELA Administration Metoprolol Tartrate 12.5 mg 05/08/19 20:00 05/11/19 09:58 Lopressor - PO 12.5 mg Q12H ANGELA Administration Tamsulosin HCl 0.4 mg 05/09/19 08:30 05/11/19 09:58 Flomax - PO 0.4 mg DAILY@0830 ANGELA Administration ASSESSMENT/PLAN: This is an 84 year old man with a history of HTN, hyperlipidemia, CAD, , TAVR , chronic diastolic heart failure, stage 3 CKD, BPH, macular degeneration, gout , anxiety who presented to the ED with fever, chills, and weakness. 1. Sepsis secondary to indwelling Chauhan catheter infection - Chauhan changed - Urine culture growing E. coli and coag pos Staph - Continue ceftriaxone (day 4) 2. Acute kidney injury - Improved 3. Anemia - Normocytic - Likely secondary to chronic illness - Hemoglobin stable - Check iron studies, stool occult blood 4. Hepatic transaminitis - Possibly secondary to ceftriaxone - Check RUQ US - Will monitor LFTs 5. Scrotal pain - US shows bilateral spermatoceles, epididymal cysts, small hydroceles - No evidence of testicular torsion, cellulitis - Keep scrotum elevated 6. HTN - Continue Norvasc, Lopressor 7. Hyperlipidemia - Continue Lipitor 8. BPH with urinary retention - Continue Flomax, Proscar - Has indwelling Chauhan catheter 9. Stage 3 CKD - Creatinine at baseline 10. Hypothyroidism - Continue Synthroid 11. CAD, history of PCI - Continue Lopressor, aspirin, Plavix, Lipitor 12. , history of TAVR 13. Chronic diastolic heart failure - Stable 14. History of gout - Continue Allopurinol Visit type - Emergency Visit Emergency Visit: Yes ED Registration Date: 05/08/19 Care time: The patient presented to the Emergency Department on the above date and was hospitalized for further evaluation of their emergent condition. - New Patient This patient is new to me today: No - Critical Care Critical Care patient: No - Discharge Referral Referred to [facility] No
[2019-05-11] MEDS: ATORVASTATIN CA 10 MG TABLET (FP) PO SCH (21:01)
[2019-05-12] MEDS: HEPARIN NA (PORCINE) 5,000 UNITS/ML 1ML VIAL SQ SCH ×2 (05:47→15:29)
[2019-05-12] MEDS: LEVOTHYROXINE NA 50 MCG TABLET (FP) PO SCH (06:07)
[2019-05-12 07:57] LABS: HEMATOCRIT 29.3 % (35.4-49); HEMOGLOBIN 9.8 GM/dL (11.7-16.9); MCH 30.1 pg (25.7-33.7); MCHC 33.3 g/dl (32.0-35.9); MEAN CELL VOLUME 90.5 fl (80-96); MEAN PLT VOLUME 8.2 fl (7.5-11.1); PLATELET COUNT 213 K/MM3 (134-434); RBC 3.24 M/mm3 (4.00-5.60); WHITE BLOOD COUNT 5.3 K/mm3 (4.0-10.0)
[2019-05-12 08:27] LABS: BILIRUBIN,TOTAL 0.2 mg/dL (0.2-1); BLOOD UREA NITROGEN 33.2 mg/dL (7-18); CALCIUM 8.5 mg/dL (8.5-10.1); CREATININE 1.7 mg/dL (0.55-1.3); POTASSIUM 4.3 mmol/L (3.5-5.1); TOT PROT 6.5 g/dl (6.4-8.2)
[2019-05-12] MEDS ORDERED: cefTRIAXone SODIUM 1 GM VIAL ONE (08:41)
[2019-05-12] MEDS ORDERED: DEXTROSE 5%-WATER - 50 ML IVPB ONE (08:42)
[2019-05-12] MEDS: ALLOPURINOL 100 MG TABLET (FP) PO SCH (09:37)
[2019-05-12] MEDS: TAMSULOSIN HCL 0.4 MG CAP PO SCH (09:37)
[2019-05-12] MEDS: amLODIPine BESYLATE 5 MG TABLET (FP) PO SCH (09:37)
[2019-05-12] MEDS: FINASTERIDE 5 MG TABLET (FP) PO SCH (09:37)
[2019-05-12] MEDS: CLOPIDOGREL BISULFATE 75 MG TABLET (FP) PO SCH (09:38)
[2019-05-12] MEDS: ASPIRIN COATED 81 MG TABLET.EC PO SCH (09:38)
[2019-05-12] MEDS: METOPROLOL TARTRATE 25 MG TABLET (FP) PO SCH (09:38)
[2019-05-12] MEDS: CEFTRIAXONE 1 GM in DEXTROSE 5%-WATER - 50 ML IVPB SCH (09:39)
[2019-05-12 14:41] VITALS: BP 125/74; PULSE 86; TEMP 98.8
--- NOTE | 2019-05-12 17:18 | DS ---
Physical Exam: SUBJECTIVE: Patient seen and examined. No acute events overnight. Patient still complaining of scrotal pain but otherwise without complaints. Afebrile for >24 hours. OBJECTIVE: Vital Signs Period Temp Pulse Resp BP Sys/Franco Pulse Ox Last 24 Hr 97.6 F-98.8 F 66-96 18-19 125-158/74-86 96-96 PHYSICAL EXAM GENERAL: Awake, alert, and fully oriented, in no acute distress. HEAD: Normal with no signs of trauma. EYES: EOMI, left side ptosis EARS, NOSE, THROAT: Moist mucous membranes. decreased hearing NECK: trachea midline, supple LUNGS: Breath sounds equal, clear to auscultation bilaterally. No wheezes, and no crackles. No accessory muscle use. HEART: Regular rate and rhythm, normal S1 and S2 without murmur, rub or gallop. ABDOMEN: Soft, nontender, not distended, normoactive bowel sounds, no guarding, no rebound, no masses. No suprapubic tenderness to palpation : mckenzie in place. Mild scrotal tenderness to palpation without significant erythema or swelling. EXTREMITIES: 2+ pulses, warm, well-perfused. No calf tenderness. 2+ non pitting edema of bilateral extremities NEUROLOGICAL: Normal speech, gait not oberseved. sensation intact throughout PSYCHIATRIC: Cooperative. Good eye contact. Appropriate mood and affect. SKIN: Warm, dry, normal turgor, normal capillary refill LABS Laboratory Results - last 24 hr 05/12/19 05/12/19 06:35 06:35 WBC 5.3 RBC 3.24 L Hgb 9.8 L Hct 29.3 L MCV 90.5 MCH 30.1 MCHC 33.3 RDW 17.0 H Plt Count 213 MPV 8.2 Sodium 140 Potassium 4.3 Chloride 110 H Carbon Dioxide 23 Anion Gap 8 BUN 33.2 H Creatinine 1.7 H Est GFR (CKD-EPI)AfAm 42.28 Est GFR (CKD-EPI)NonAf 36.48 Random Glucose 105 Calcium 8.5 Iron 45 L TIBC 189 L Iron Saturation 23 Unsaturated IBC 144 L Ferritin 254.1 Total Bilirubin 0.2 AST 61 H ALT 96 H Alkaline Phosphatase 110 Total Protein 6.5 Albumin 3.0 L Vitamin B12 294 Serum Folate 5 HOSPITAL COURSE: Date of Admission:05/08/19 Date of Discharge: 05/12/19 84 y/o/m with PMHx of HTN, HLD, severe , TAVR, CKD (baseline Cr 2.3), BPH, macular degeneration (left eye worse than right) anxiety with an indwelling mckenzie since November of this year here for chills, fever, and weakness x5 days. Admitted for sepsis 2/2 UTI. Patient's mckenzie was changed in the ED. Found to have UA positive for UTI, treated with Ceftriaxone with improvement and discharged on 5 more days of Cefpodoxime. Urine cultures grew E Coli and Staph Aureus sensitive to ceftriaxone. Flu studies were negative. Patient's home medications were continued appropriately. Scrotal ultrasound was completed and showed bilateral spermatoceles, epididymal cysts and small hydroceles without evidence of torsion. Liver enzymes started to rise while admitted, patient discharged with instructions to have LFTs monitored in 1 week. Patient's iron levels were found to be low during admission, discharged with with iron supplementation and instructions to have iron levels checked in 3 months. Instructed to follow up with Urology after discharge, an appointment was made in 1 week. Discharged home. Minutes to complete discharge: 36 Discharge Summary Problems reviewed: Yes Reason For Visit: URINARY STEPHON INFECTION,MALAISE Condition: Improved - Instructions Diet, Activity, Other Instructions: You presented to the hospital with chills, fever and weakness and were found to have a UTI for which you were treated with IV antibiotics. You had your mckenzie replaced while you were in the emergency department. You had an ultrasound of your scrotum done which showed bilateral spermatoceles, epididymal cysts and small hydroceles without any evidence of testicular torsion. You were found to be anemic and on further testing your Iron levels were found to be low. Medication Changes: 1. You are being discharged with a prescription for Cefpodoxime 100mg twice a day for 5 days to continue antibiotic treatment for your UTI. 2. You are being started on iron supplementation, 325mg once daily, for your low iron levels. 3. You complained of constipation while in the hospital, you may take Colace once daily and Senna twice daily help you have bowel movements. Follow up labs: 1. You liver function enzymes were slightly elevated while in the hospital, please have a complete metabolic panel checked to monitor your liver function enzymes in 1 week (05/19/19). 2. Please have your iron levels checked in 3 months as you are being started on an iron supplementation. Follow up with the following physicians: 1. Please follow up with your primary care provider within one week of discharge for further management of your medical conditions. 2. Please follow up with your urologist for further management of your medical conditions, we have scheduled an appointment for you for 06/19/2019 at 2:30pm. Activity and Diet 1. You are being discharged home. Recommend daily exercise to strengthen your muscles. 2. Please monitor your diet as you need to consume a diet low in salt and cholesterol. Continue all your other medications as prescribed Please return to the ER if you have any signs or symptoms of chest pain, shortness of breath, uncontrollable fever, chills, nausea, vomiting, numbness, tingling, or weakness in any part of your body, changes in vision, or slurred speech. Please return to the ER if symptoms persist, worsen, or new symptoms arise. Referrals: Ruben Reyez MD [Primary Care Provider] - Disposition: HOME - Home Medications Comprehensive Discharge Medication List: Ambulatory Orders Allopurinol [Zyloprim -] 100 mg PO DAILY 05/20/14 Levothyroxine [Synthroid -] 50 mcg PO DAILY 05/20/14 Silodosin [Rapaflo] 8 mg PO DAILY 05/20/14 Magnesium Oxide 420 mg PO DAILY 11/03/18 Aspirin [ASA -] 81 mg PO DAILY 11/29/18 Clopidogrel Bisulfate [Clopidogrel] 75 mg PO DAILY 11/29/18 Pantoprazole Sodium 40 mg PO DAILY 11/29/18 Amlodipine Besylate 5 mg PO DAILY 12/06/18 Atorvastatin Ca [Lipitor] 10 mg PO DAILY 12/06/18 Furosemide [Lasix -] 20 mg PO DAILY 12/06/18 Metoprolol Tartrate 12.5 mg PO BID 12/06/18 Cefpodoxime Proxetil [Vantin -] 100 mg PO BID 5 Days #10 tablet 05/12/19 Docusate Sodium [Colace] 100 mg PO DAILY PRN #7 capsule 05/12/19 Ferrous Sulfate 325 mg PO DAILY #30 tablet 05/12/19 Sennosides [Senna] 8.6 mg PO BID PRN #14 tablet 05/12/19 This patient is new to me today: No Emergency Visit: Yes ED Registration Date: 05/08/19 Care time: The patient presented to the Emergency Department on the above date and was hospitalized for further evaluation of their emergent condition. Critical Care patient: No - Discharge Referral Referred to [facility] No ATTENDING PHYSICIAN STATEMENT I saw and evaluated the patient. I reviewed the resident's note and discussed the case with the resident. I agree with the resident's findings and plan as documented. SUBJECTIVE: OBJECTIVE: ASSESSMENT AND PLAN:
--- NOTE | 2019-05-12 18:22 | PN ---
Teaching Attending Note Name of Resident: Paloma Vega ATTENDING PHYSICIAN STATEMENT I saw and evaluated the patient. I reviewed the resident's note and discussed the case with the resident. I agree with the resident's findings and plan as documented. SUBJECTIVE: Feels well, no new complaints. OBJECTIVE: Afebrile, Hemodynamically stable. Last Vital Signs Temp Pulse Resp BP Pulse Ox 98.8 F 86 18 125/74 96 05/12/19 08:00 05/12/19 08:00 05/12/19 09:00 05/12/19 08:00 05/12/19 09:00 GENERAL: Comfortable. AAO x 3. LUNGS: clear to auscultation HEART: S1, S2, RRR ABDOMEN: Soft, non-tender. Bowel Sounds normal. EXTREMITIES: Mild edema. No calf tenderness. : Scrotum swollen on left, non-tender. Laboratory Results - last 24 hr 05/12/19 05/12/19 06:35 06:35 WBC 5.3 RBC 3.24 L Hgb 9.8 L Hct 29.3 L MCV 90.5 MCH 30.1 MCHC 33.3 RDW 17.0 H Plt Count 213 MPV 8.2 Sodium 140 Potassium 4.3 Chloride 110 H Carbon Dioxide 23 Anion Gap 8 BUN 33.2 H Creatinine 1.7 H Est GFR (CKD-EPI)AfAm 42.28 Est GFR (CKD-EPI)NonAf 36.48 Random Glucose 105 Calcium 8.5 Iron 45 L TIBC 189 L Iron Saturation 23 Unsaturated IBC 144 L Ferritin 254.1 Total Bilirubin 0.2 AST 61 H ALT 96 H Alkaline Phosphatase 110 Total Protein 6.5 Albumin 3.0 L Vitamin B12 294 Serum Folate 5 Discharge Medications Medication Instructions Recorded Allopurinol [Zyloprim -] 100 mg PO DAILY 05/20/14 Levothyroxine [Synthroid -] 50 mcg PO DAILY 05/20/14 Silodosin [Rapaflo] 8 mg PO DAILY 05/20/14 Magnesium Oxide 420 mg PO DAILY 11/03/18 Aspirin [ASA -] 81 mg PO DAILY 11/29/18 Clopidogrel Bisulfate [Clopidogrel] 75 mg PO DAILY 11/29/18 Pantoprazole Sodium 40 mg PO DAILY 11/29/18 Amlodipine Besylate 5 mg PO DAILY 12/06/18 Atorvastatin Ca [Lipitor] 10 mg PO DAILY 12/06/18 Furosemide [Lasix -] 20 mg PO DAILY 12/06/18 Metoprolol Tartrate 12.5 mg PO BID 12/06/18 Cefpodoxime Proxetil [Vantin -] 100 mg PO BID 5 Days #10 tablet 05/12/19 Docusate Sodium [Colace] 100 mg PO DAILY PRN #7 capsule 05/12/19 Ferrous Sulfate 325 mg PO DAILY #30 tablet 05/12/19 Sennosides [Senna] 8.6 mg PO BID PRN #14 tablet 05/12/19 ASSESSMENT/PLAN: 84 year old man with a history of HTN, hyperlipidemia, CAD, , TAVR, chronic diastolic heart failure, stage 3 CKD, BPH, macular degeneration, gout, anxiety who presented to the ED with fever, chills, and weakness. 1. Sepsis secondary to UTI, associated with indwelling Mckenzie catheter Urine Cx - Ecoli, coag pos Staph s/p mckenzie exchange Continue ceftriaxone (day 5) Fo0r discharge on 5 additional days of cephalosporin. 2. Acute kidney injury - Resolved. 3. Normocytic Anemia - sec to chronic illness. Iron studies normal. B12 borderline, will replete. 4. Hepatic transaminitis - possibly sec to Ceftriaxone. Asymptomatic. Repeat LFTs next week. Advised to hold Atorvastatin pending repeat LFTs. 5. Scrotal pain - US shows bilateral spermatoceles, epididymal cysts, small hydroceles No evidence of testicular torsion or cellulitis/orchitis clinically Scrotal Sling fitted. Urology out-patient follow up with patient's urologist advised. 6. HTN - Continue Norvasc, Lopressor 7. Hyperlipidemia - normally on Lipitor, will hold pending repeat LFTs next week. 8. BPH with urinary retention - Continue Flomax, Proscar 9. Stage 3 CKD - Creatinine at baseline 10. Hypothyroidism - Continue Synthroid 11. CAD, s/p PCI - Continue Lopressor, aspirin, Plavix. Lipitor on hold. 12. , s/p TAVR - Stable. 13. Chronic diastolic heart failure - Stable.; No evidence of decompensation. 14. History of gout - Continue Allopurinol Medically optimized for discharge with urology follow up and LFT check on Thursday.
== END 2019-05-12 16:30 | disposition home or self-care (01) | DRG 698 ==
LOC: JER 12:46 → JERBED 15:10 → J5S 19:34 → J8W 05-09 19:35
PROVIDERS: ADMIT Hospitalist
DX: T83.511A Infection and inflammatory reaction due to indwelling urethral catheter, initial encounter (principal); A41.2 Sepsis due to unspecified staphylococcus; I13.0 Hypertensive heart and chronic kidney disease with heart failure and stage 1 through stage 4 chronic kidney disease, or unspecified chronic kidney disease; I50.32 Chronic diastolic (congestive) heart failure; N17.9 Acute kidney failure, unspecified; N40.0 Benign prostatic hyperplasia without lower urinary tract symptoms; E03.9 Hypothyroidism, unspecified; E78.00 Pure hypercholesterolemia, unspecified; R00.0 Tachycardia, unspecified; F41.9 Anxiety disorder, unspecified; H35.30 Unspecified macular degeneration; I35.0 Nonrheumatic aortic (valve) stenosis; M10.9 Gout, unspecified; I25.10 Atherosclerotic heart disease of native coronary artery without angina pectoris; N18.3 Chronic kidney disease, stage 3 (moderate); D64.9 Anemia, unspecified; N50.82 Scrotal pain; N43.42 Spermatocele of epididymis, multiple; N50.3 Cyst of epididymis; N43.2 Other hydrocele; N39.0 Urinary tract infection, site not specified; B96.20 Unspecified Escherichia coli [E. coli] as the cause of diseases classified elsewhere; Z95.5 Presence of coronary angioplasty implant and graft; Z95.2 Presence of prosthetic heart valve
CPT/HCPCS: 36415; 71045-TC-FY; 76870-TC; 80053; 81003; 82550; 82607; 82728; 82746; 83540; 83550; 83690; 83735; 84100; 84484; 85025; 85027; 87040; 87086; 87186; 87804; 93005; 93010; 97116-GP; 97161-GP; 99284-25; J0131; J1644

== ENCOUNTER 2020-05-23 14:18 | Observation (INO) | payer OTHER ==
[2020-05-23 14:32] VITALS: BMI 33.4
[2020-05-23 17:22] LABS: BASO % 0.9 % (0-2.0); EOS % 5.6 % (0-4.5); HEMATOCRIT 40.3 % (35.4-49); HEMOGLOBIN 13.7 GM/dL (11.7-16.9); LYMPH % 21.2 % (8-40); MCH 30.9 pg (25.7-33.7); MCHC 33.9 g/dl (32.0-35.9); MEAN PLT VOLUME 8.6 fl (7.5-11.1); MONO % 8.3 % (3.8-10.2); PLATELET COUNT 183 K/MM3 (134-434); RBC 4.42 M/mm3 (4.00-5.60); RDW 15.9 % (11.9-15.9); WHITE BLOOD COUNT 7.2 K/mm3 (4.0-10.0)
[2020-05-23 17:32] LABS: INR 1.03 (0.83-1.09); PROTHROMBIN TIME (PATIENT) 12.5 SEC (9.7-13.0)
[2020-05-23 17:35] LABS: ACTIVATED PTT 32.3 SECONDS (25.2-36.5)
[2020-05-23 17:41] LABS: CHLORIDE 105 mmol/L (98-107); SODIUM 137 mmol/L (136-145)
[2020-05-23 17:44] LABS: ALBUMIN 4.1 g/dl (3.4-5.0); ANION GAP 5 MMOL/L (8-16); BLOOD UREA NITROGEN 42.6 mg/dL (7-18); CALCIUM 9.3 mg/dL (8.5-10.1); CO2 27 mmol/L (21-32); GLUCOSE,RANDOM 94 mg/dL (74-106)
[2020-05-23 17:47] LABS: CREATININE 2.1 mg/dL (0.55-1.3); SGOT/AST 18 U/L (15-37); SGPT/ALT 28 U/L (13-61)
[2020-05-23 17:49] LABS: ALK PHOS 89 U/L (45-117); BILIRUBIN,TOTAL 0.3 mg/dL (0.2-1); TOT PROT 7.8 g/dl (6.4-8.2)
[2020-05-23 18:15] LABS: ANISOCYTOSIS 0; MACROCYTOSIS 0; PLATELET ESTIMATE NORMAL
[2020-05-23] MEDS ORDERED: ASPIRIN 81 MG CHEWABLE TABLETS PO ONE (20:02)
[2020-05-23] MEDS ORDERED: ASPIRIN COATED 81 MG TABLET.EC ONE (20:18)
[2020-05-23] MEDS ORDERED: amLODIPine BESYLATE 5 MG TABLET (FP) PO ONE (21:38)
[2020-05-23] MEDS ORDERED: amLODIPine BESYLATE 5 MG TABLET (FP) ONE (22:12)
[2020-05-24] MEDS ORDERED: BACITRACIN 0.9 GM PACKET ONE (00:51)
[2020-05-24] MEDS: MINERAL OIL/PETROLAT/WATER TOPICAL CREAM 113 GM JAR TP SCH ×2 (01:47→10:48)
[2020-05-24 09:41] LABS: EOS % 5.4 % (0-4.5); HEMATOCRIT 42.3 % (35.4-49); HEMOGLOBIN 14.1 GM/dL (11.7-16.9); LYMPH % 17.5 % (8-40); MCH 30.4 pg (25.7-33.7); MCHC 33.4 g/dl (32.0-35.9); MEAN CELL VOLUME 90.9 fl (80-96); MEAN PLT VOLUME 8.7 fl (7.5-11.1); MONO % 6.6 % (3.8-10.2); NEUT % 69.5 % (42.8-82.8); PLATELET COUNT 196 K/MM3 (134-434); RBC 4.65 M/mm3 (4.00-5.60); RDW 15.4 % (11.9-15.9); WHITE BLOOD COUNT 8.4 K/mm3 (4.0-10.0)
[2020-05-24] MEDS ORDERED: ENOXAPARIN NA (PORCINE) 40 MG/0.4 ML DISP.SYRIN SQ SCH (10:00)
[2020-05-24 10:05] LABS: CHLORIDE 105 mmol/L (98-107); POTASSIUM 5.1 mmol/L (3.5-5.1); SODIUM 139 mmol/L (136-145)
[2020-05-24 10:30] LABS: ALBUMIN 4.3 g/dl (3.4-5.0); BLOOD UREA NITROGEN 45.1 mg/dL (7-18); CALCIUM 9.9 mg/dL (8.5-10.1); GLUCOSE,RANDOM 108 mg/dL (74-106)
[2020-05-24 10:32] LABS: ANION GAP 9 MMOL/L (8-16); CO2 25 mmol/L (21-32); MAGNESIUM 2.1 mg/dL (1.8-2.4)
[2020-05-24 10:33] LABS: SGPT/ALT 27 U/L (13-61)
[2020-05-24 10:34] LABS: CREATININE 2.1 mg/dL (0.55-1.3); PHOSPHOROUS 3.9 mg/dL (2.5-4.9); SGOT/AST 17 U/L (15-37)
[2020-05-24 10:35] LABS: TOT PROT 8.2 g/dl (6.4-8.2)
[2020-05-24 10:36] LABS: BILIRUBIN,TOTAL 0.7 mg/dL (0.2-1)
[2020-05-24 10:37] LABS: ALK PHOS 90 U/L (45-117)
[2020-05-24 11:43] LABS: LIPASE 117 U/L (73-393)
[2020-05-24 13:13] LABS: ANISOCYTOSIS 0; MACROCYTOSIS 0; PLATELET ESTIMATE NORMAL
[2020-05-24 15:08] VITALS: BP 129/64; PULSE 64; TEMP 97.6
== END 2020-05-24 17:50 | disposition home or self-care (01) ==
LOC: JER 14:18 → JERBED 18:28 → INTOOBSV 18:28
PROVIDERS: ADMIT Internal Medicine; ATTEND Internal Medicine
PROC: 3E023GC Introduction of Other Therapeutic Substance into Muscle, Percutaneous Approach (ICD-10-PCS; principal; 2020-05-23)
DX: I13.10 Hypertensive heart and chronic kidney disease without heart failure, with stage 1 through stage 4 chronic kidney disease, or unspecified chronic kidney disease (principal); I87.2 Venous insufficiency (chronic) (peripheral); N40.0 Benign prostatic hyperplasia without lower urinary tract symptoms; I35.0 Nonrheumatic aortic (valve) stenosis; E78.00 Pure hypercholesterolemia, unspecified; E03.9 Hypothyroidism, unspecified; E11.22 Type 2 diabetes mellitus with diabetic chronic kidney disease; I44.7 Left bundle-branch block, unspecified; Z87.891 Personal history of nicotine dependence; Z88.8 Allergy status to other drugs, medicaments and biological substances; N28.9 Disorder of kidney and ureter, unspecified; Z29.9 Encounter for prophylactic measures, unspecified
CPT/HCPCS: 36415; 71045-TC-FY; 71250-TC; 80053; 82550; 83690; 83735; 84100; 84484; 85025; 85610; 85730; 87804; 93005; 93010; 93306-TC; 96372; 99285-25; C9803; G0378; U0003

== ENCOUNTER 2021-03-09 05:42 | Inpatient (IN) | payer OTHER ==
[2021-03-09] MEDS ORDERED: morphine CARPU-JECT 2 MG/1 ML DISP.SYRIN IVPUSH ONE (06:32)
[2021-03-09] MEDS ORDERED: morphine SULFATE 4 MG/ML VIAL ONE ×2 (06:37→20:20)
[2021-03-09] MEDS ORDERED: ACETAMINOPHEN 1000 MG/100 ML VIAL IVPB ONE (07:55)
[2021-03-09] MEDS ORDERED: SODIUM CHLORIDE 0.9% 500 ML INFUS.BAG IV ONE (08:03)
[2021-03-09 08:24] LABS: HEMATOCRIT 36.1 % (35.4-49); HEMOGLOBIN 12.4 GM/dL (11.7-16.9); MCH 31.8 pg (25.7-33.7); MCHC 34.3 g/dl (32.0-35.9); MEAN PLT VOLUME 8.7 fl (7.5-11.1); PLATELET COUNT 207 10^3/uL (134-434); RBC 3.88 M/mm3 (4.00-5.60); RDW 16.5 % (11.9-15.9); WHITE BLOOD COUNT 7.5 K/mm3 (4.0-10.0)
[2021-03-09 08:30] LABS: INR 0.97 (0.83-1.09); PROTHROMBIN TIME (PATIENT) 11.4 SEC (9.7-13.0)
[2021-03-09 08:36] LABS: EPI CELLS 9 /uL (0-25.1); HYALINE CASTS 7 /uL (0-3.1); PH,URINE 8.5 (5.0-8.0); URINE APPEARANCE CLOUDY; URINE BACTERIA >9,000 /uL (0-1359); URINE BILIRUBIN NEGATIVE (NEGATIVE); URINE COLOR YELLOW; URINE GLUCOSE (UA) NEGATIVE (NEGATIVE); URINE KETONE NEGATIVE (NEGATIVE); URINE LEUK ESTERASE 3+ (NEGATIVE); URINE NITRITE NEGATIVE (NEGATIVE); URINE PROTEIN 2+ (NEGATIVE); URINE RBC 11 /uL (0-23.9); URINE UROBILINOGEN 0.2 mg/dL (0.2-1.0); URINE WBC 505 /uL (0-25.8)
[2021-03-09] MEDS ORDERED: LORazepam 1 MG TABLET PO ONE (08:40)
[2021-03-09 08:50] LABS: CALCIUM 9.5 mg/dL (8.5-10.1)
[2021-03-09 08:51] LABS: ALBUMIN 4.2 g/dl (3.4-5.0); BLOOD UREA NITROGEN 62.8 mg/dL (7-18)
[2021-03-09 08:54] LABS: CREATININE 3.2 mg/dL (0.55-1.3)
[2021-03-09 08:56] LABS: BILIRUBIN,TOTAL 0.4 mg/dL (0.2-1); TOT PROT 7.8 g/dl (6.4-8.2)
[2021-03-09 09:01] LABS: YEAST NO SEEN (NEGATIVE)
[2021-03-09 09:02] LABS: URINE CRYSTALS PHOSPHATE TRIPLE MOD /hpf
[2021-03-09] MEDS ORDERED: ACETAMINOPHEN INJECTION 100 ML IVPB ONE (09:10)
[2021-03-09] MEDS ORDERED: LORazepam 1 MG TABLET ONE (09:11)
[2021-03-09] MEDS ORDERED: CEFTRIAXONE 1 GM in DEXTROSE 5%-WATER - 100 ML IVPB ONE (09:12)
[2021-03-09 10:03] LABS: ANISOCYTOSIS 0; HELMET CELLS 0; HOWELL-JOLLY BODIES 0; MACROCYTOSIS 0; OVALOCYTE 0; PLATELET ESTIMATE NORMAL; ROULEAU 0; SICKELED CELLS 0; TARGET CELLS 0; TEAR DROP CELLS 0; TOXIC GRANULATION 0
[2021-03-09 11:20] LABS: N-TERMINAL BNP 214.3 pg/ml (5-450)
[2021-03-09] MEDS ORDERED: CEFTRIAXONE 1 GM/50 ML BAG ONE (11:44)
[2021-03-09] MEDS ORDERED: ACETAMINOPHEN 500 MG TABLET (FP) PO PRN (12:42)
[2021-03-09] MEDS ORDERED: HEPARIN NA (PORCINE) 5,000 UNITS/ML 1ML VIAL ONE (19:23)
[2021-03-09] MEDS: HEPARIN NA (PORCINE) 5,000 UNITS/ML 1ML VIAL SQ SCH (19:42)
[2021-03-09] MEDS: INSULIN SLIDING SCALE (NOVOLOG) 1 VIAL SQ SCH ×2 (19:43→22:50)
[2021-03-09] MEDS: morphine SULFATE 4 MG/ML VIAL IVPUSH PRN (20:40)
[2021-03-10 00:22] VITALS: BMI 34.4
[2021-03-10] MEDS: morphine SULFATE 4 MG/ML VIAL IVPUSH PRN ×5 (00:27→23:29)
[2021-03-10] MEDS: HEPARIN NA (PORCINE) 5,000 UNITS/ML 1ML VIAL SQ SCH ×3 (02:43→17:02)
[2021-03-10] MEDS: LEVOTHYROXINE NA 50 MCG TABLET (FP) PO SCH (06:19)
[2021-03-10] MEDS: INSULIN SLIDING SCALE (NOVOLOG) 1 VIAL SQ SCH ×4 (06:20→22:35)
[2021-03-10] MEDS: TAMSULOSIN HCL 0.4 MG CAP PO SCH (08:41)
[2021-03-10] MEDS ORDERED: cefTRIAXone SODIUM 1 GM VIAL ONE (09:03)
[2021-03-10] MEDS ORDERED: DEXTROSE 5%-WATER - 50 ML IVPB ONE (09:03)
[2021-03-10] MEDS: EZETIMIBE 10 MG TABLET (FP) PO SCH (09:16)
[2021-03-10] MEDS: amLODIPine BESYLATE 5 MG TABLET (FP) PO SCH (09:16)
[2021-03-10] MEDS: ALLOPURINOL 100 MG TABLET (FP) PO SCH (09:16)
[2021-03-10] MEDS: FUROSEMIDE 40 MG TABLET (FP) PO SCH (09:16)
[2021-03-10] MEDS: ATORVASTATIN CA 10 MG TABLET (FP) PO SCH (09:16)
[2021-03-10] MEDS: PANTOPRAZOLE 40 MG TABLET PO SCH (09:17)
[2021-03-10] MEDS: CEFTRIAXONE 1 GM in DEXTROSE 5%-WATER - 50 ML IVPB SCH (09:17)
[2021-03-10] MEDS ORDERED: PATIENT'S OWN MEDICATION (NON-FORMULARY) (Icosapent Ethyl [Vascepa] 1 GM Capsule) PO SCH (10:00)
[2021-03-10 10:06] LABS: HEMATOCRIT 35.4 % (35.4-49); HEMOGLOBIN 12.1 GM/dL (11.7-16.9); MCH 31.8 pg (25.7-33.7); MEAN CELL VOLUME 93.3 fl (80-96); MEAN PLT VOLUME 8.3 fl (7.5-11.1); PLATELET COUNT 190 10^3/uL (134-434); RDW 17.1 % (11.9-15.9); WHITE BLOOD COUNT 7.8 K/mm3 (4.0-10.0)
[2021-03-10 10:14] LABS: INR 1.13 (0.83-1.09); PROTHROMBIN TIME (PATIENT) 12.7 SEC (9.7-13.0)
[2021-03-10 10:16] LABS: ACTIVATED PTT 30.3 SECONDS (25.2-36.5)
[2021-03-10 10:33] LABS: ALBUMIN 3.7 g/dl (3.4-5.0); BLOOD UREA NITROGEN 52.3 mg/dL (7-18); CALCIUM 8.9 mg/dL (8.5-10.1)
[2021-03-10 10:34] LABS: MAGNESIUM 2.3 mg/dL (1.8-2.4)
[2021-03-10 10:36] LABS: PHOSPHOROUS 2.6 mg/dL (2.5-4.9)
[2021-03-10 10:37] LABS: CREATININE 2.7 mg/dL (0.55-1.3)
[2021-03-10 10:38] LABS: BILIRUBIN,TOTAL 0.5 mg/dL (0.2-1); TOT PROT 7.4 g/dl (6.4-8.2)
[2021-03-10] MEDS ORDERED: INSULIN (NOVOLOG) ASPART 100 UNITS/ML 10ML VIAL ONE (11:37)
[2021-03-10] MEDS ORDERED: ACETAMINOPHEN 325 MG TABLET (FP) PO PRN (13:06)
[2021-03-10 13:07] LABS: EPI CELLS >36 /uL (0-25.1); HYALINE CASTS 2 /uL (0-3.1); URINE APPEARANCE CLEAR; URINE BACTERIA 5051 /uL (0-1359); URINE BILIRUBIN NEGATIVE (NEGATIVE); URINE COLOR YELLOW; URINE GLUCOSE (UA) NEGATIVE (NEGATIVE); URINE KETONE NEGATIVE (NEGATIVE); URINE LEUK ESTERASE 1+ (NEGATIVE); URINE NITRITE POSITIVE (NEGATIVE); URINE PROTEIN 2+ (NEGATIVE); URINE RBC 7 /uL (0-23.9); URINE UROBILINOGEN 0.2 mg/dL (0.2-1.0); URINE WBC 81 /uL (0-25.8)
[2021-03-11] MEDS: morphine SULFATE 4 MG/ML VIAL IVPUSH PRN ×3 (04:20→21:06)
[2021-03-11] MEDS ORDERED: PT OWN MED DRAWER 7, Y5N ONE (05:41)
[2021-03-11] MEDS: INSULIN SLIDING SCALE (NOVOLOG) 1 VIAL SQ SCH ×4 (06:40→21:05)
[2021-03-11] MEDS: LEVOTHYROXINE NA 50 MCG TABLET (FP) PO SCH (06:40)
[2021-03-11] MEDS ORDERED: DEXTROSE 5%-WATER - 50 ML IVPB ONE (08:49)
[2021-03-11] MEDS ORDERED: cefTRIAXone SODIUM 1 GM VIAL ONE (08:49)
[2021-03-11] MEDS: TAMSULOSIN HCL 0.4 MG CAP PO SCH (08:51)
[2021-03-11] MEDS: ALLOPURINOL 100 MG TABLET (FP) PO SCH (09:13)
[2021-03-11] MEDS: CEFTRIAXONE 1 GM in DEXTROSE 5%-WATER - 50 ML IVPB SCH (09:14)
[2021-03-11] MEDS: FUROSEMIDE 40 MG TABLET (FP) PO SCH (09:14)
[2021-03-11] MEDS: PANTOPRAZOLE 40 MG TABLET PO SCH (09:14)
[2021-03-11] MEDS: EZETIMIBE 10 MG TABLET (FP) PO SCH (09:14)
[2021-03-11] MEDS: ATORVASTATIN CA 10 MG TABLET (FP) PO SCH (09:14)
[2021-03-11] MEDS: amLODIPine BESYLATE 5 MG TABLET (FP) PO SCH (09:14)
[2021-03-11 10:16] LABS: HEMATOCRIT 32.5 % (35.4-49); HEMOGLOBIN 11.1 GM/dL (11.7-16.9); MCH 31.9 pg (25.7-33.7); MCHC 34.1 g/dl (32.0-35.9); MEAN CELL VOLUME 93.6 fl (80-96); MEAN PLT VOLUME 8.4 fl (7.5-11.1); PLATELET COUNT 173 10^3/uL (134-434); RBC 3.47 M/mm3 (4.00-5.60); RDW 16.7 % (11.9-15.9); WHITE BLOOD COUNT 6.7 K/mm3 (4.0-10.0)
[2021-03-11 10:56] LABS: CALCIUM 8.6 mg/dL (8.5-10.1)
[2021-03-11 10:57] LABS: BLOOD UREA NITROGEN 59.6 mg/dL (7-18)
[2021-03-11 11:00] LABS: CREATININE 2.9 mg/dL (0.55-1.3)
[2021-03-11] MEDS ORDERED: LORazepam 0.5 MG TABLET PO ONE (11:15)
[2021-03-12] MEDS: morphine SULFATE 4 MG/ML VIAL IVPUSH PRN ×2 (03:47→14:55)
[2021-03-12] MEDS: INSULIN SLIDING SCALE (NOVOLOG) 1 VIAL SQ SCH ×2 (06:19→12:00)
[2021-03-12] MEDS: LEVOTHYROXINE NA 50 MCG TABLET (FP) PO SCH (06:20)
[2021-03-12] MEDS ORDERED: BUPIVACAINE HCL/PF 0.5% (5MG/ML) 10 ML VIAL ONE ×2 (07:21→11:14)
[2021-03-12] MEDS ORDERED: DEXMEDETOMIDINE HCL 200 MCG/2 ML IVPB ONE (07:21)
[2021-03-12] MEDS ORDERED: ceFAZolin SODIUM 1 GM VIAL IVPB ONE (08:30)
[2021-03-12] MEDS ORDERED: MIDAZOLAM HCL 2 MG/2 ML SINGLE DOSE VIAL ONE (08:49)
[2021-03-12] MEDS ORDERED: LIDOCAINE HCL 1%, 10 MG/ML (20ML VIAL) ONE (11:14)
[2021-03-12] MEDS ORDERED: ACETAMINOPHEN 325 MG TABLET (FP) PO PRN (11:16)
[2021-03-12] MEDS ORDERED: cefTRIAXone SODIUM 1 GM VIAL ONE (14:23)
[2021-03-12] MEDS ORDERED: DEXTROSE 5%-WATER - 50 ML IVPB ONE (14:23)
[2021-03-12] MEDS: CEFTRIAXONE 1 GM in DEXTROSE 5%-WATER - 50 ML IVPB SCH (14:38)
[2021-03-13] MEDS: INSULIN SLIDING SCALE (NOVOLOG) 1 VIAL SQ SCH ×5 (00:28→21:59)
[2021-03-13] MEDS ORDERED: morphine SULFATE 4 MG/ML VIAL IM ONE (01:05)
[2021-03-13] MEDS ORDERED: MELATONIN 5 MG TABLETS PO ONE (01:05)
[2021-03-13] MEDS ORDERED: morphine SULFATE 4 MG/ML VIAL IVPUSH ONE (05:21)
[2021-03-13] MEDS: LEVOTHYROXINE NA 50 MCG TABLET (FP) PO SCH (07:59)
[2021-03-13 09:20] LABS: HEMATOCRIT 30.8 % (35.4-49); HEMOGLOBIN 10.8 GM/dL (11.7-16.9); MCH 31.9 pg (25.7-33.7); MCHC 35.1 g/dl (32.0-35.9); MEAN CELL VOLUME 90.9 fl (80-96); MEAN PLT VOLUME 7.9 fl (7.5-11.1); PLATELET COUNT 192 10^3/uL (134-434); RBC 3.39 M/mm3 (4.00-5.60); RDW 16.1 % (11.9-15.9); WHITE BLOOD COUNT 9.3 K/mm3 (4.0-10.0)
[2021-03-13 09:51] LABS: BLOOD UREA NITROGEN 57.1 mg/dL (7-18); CALCIUM 8.6 mg/dL (8.5-10.1)
[2021-03-13] MEDS ORDERED: cefTRIAXone SODIUM 1 GM VIAL ONE (10:00)
[2021-03-13] MEDS ORDERED: ENOXAPARIN NA (PORCINE) 40 MG/0.4 ML DISP.SYRIN SQ SCH (10:00)
[2021-03-13] MEDS ORDERED: DEXTROSE 5%-WATER - 50 ML IVPB ONE (10:00)
[2021-03-13] MEDS: morphine SULFATE 4 MG/ML VIAL IVPUSH PRN ×3 (10:24→22:35)
[2021-03-13] MEDS: amLODIPine BESYLATE 5 MG TABLET (FP) PO SCH (10:32)
[2021-03-13] MEDS: ENOXAPARIN NA (PORCINE) 30 MG/0.3 ML DISP.SYRIN SQ SCH (10:32)
[2021-03-13] MEDS: PANTOPRAZOLE 40 MG TABLET PO SCH (10:32)
[2021-03-13] MEDS: EZETIMIBE 10 MG TABLET (FP) PO SCH (10:32)
[2021-03-13] MEDS: ALLOPURINOL 100 MG TABLET (FP) PO SCH (10:32)
[2021-03-13] MEDS: FUROSEMIDE 40 MG TABLET (FP) PO SCH (10:32)
[2021-03-13] MEDS: TAMSULOSIN HCL 0.4 MG CAP PO SCH (10:32)
[2021-03-13] MEDS: CEFTRIAXONE 1 GM in DEXTROSE 5%-WATER - 50 ML IVPB SCH (10:33)
[2021-03-13 10:49] LABS: ANISOCYTOSIS 1+; MACROCYTOSIS 0; OVALOCYTE 2+; PLATELET ESTIMATE NORMAL
[2021-03-13] MEDS ORDERED: PT OWN MED DRAWER 7, Y5N ONE (12:34)
[2021-03-13] MEDS: NEBIVOLOL 5 MG TABLET (FP) PO SCH (13:16)
[2021-03-13] MEDS: ATORVASTATIN CA 10 MG TABLET (FP) PO SCH (21:58)
[2021-03-14] MEDS ORDERED: morphine CARPU-JECT 2 MG/1 ML DISP.SYRIN IM ONE (00:19)
[2021-03-14] MEDS ORDERED: MELATONIN 5 MG TABLETS PO ONE (00:19)
[2021-03-14] MEDS: morphine SULFATE 4 MG/ML VIAL IVPUSH PRN ×2 (05:37→23:35)
[2021-03-14] MEDS: LEVOTHYROXINE NA 50 MCG TABLET (FP) PO SCH (06:17)
[2021-03-14] MEDS: INSULIN SLIDING SCALE (NOVOLOG) 1 VIAL SQ SCH ×4 (06:17→22:01)
[2021-03-14] MEDS ORDERED: DEXTROSE 5%-WATER - 50 ML IVPB ONE (09:32)
[2021-03-14] MEDS ORDERED: cefTRIAXone SODIUM 1 GM VIAL ONE (09:32)
[2021-03-14] MEDS: CEFTRIAXONE 1 GM in DEXTROSE 5%-WATER - 50 ML IVPB SCH (09:39)
[2021-03-14] MEDS: ENOXAPARIN NA (PORCINE) 30 MG/0.3 ML DISP.SYRIN SQ SCH (09:39)
[2021-03-14] MEDS: EZETIMIBE 10 MG TABLET (FP) PO SCH (09:40)
[2021-03-14] MEDS: FUROSEMIDE 40 MG TABLET (FP) PO SCH (09:40)
[2021-03-14] MEDS: TAMSULOSIN HCL 0.4 MG CAP PO SCH (09:40)
[2021-03-14] MEDS: PANTOPRAZOLE 40 MG TABLET PO SCH (09:40)
[2021-03-14] MEDS: ALLOPURINOL 100 MG TABLET (FP) PO SCH (09:40)
[2021-03-14] MEDS: amLODIPine BESYLATE 5 MG TABLET (FP) PO SCH (09:40)
[2021-03-14] MEDS: NEBIVOLOL 5 MG TABLET (FP) PO SCH (10:13)
[2021-03-14] MEDS: ATORVASTATIN CA 10 MG TABLET (FP) PO SCH (22:04)
[2021-03-15] MEDS ORDERED: MELATONIN 5 MG TABLETS PO ONE (00:33)
[2021-03-15] MEDS ORDERED: morphine SULFATE 4 MG/ML VIAL IVPUSH ONE (01:03)
[2021-03-15] MEDS ORDERED: HALOPERIDOL LACTATE 5 MG/ML IM ONE (01:23)
[2021-03-15] MEDS ORDERED: morphine CARPU-JECT 2 MG/1 ML DISP.SYRIN IVPUSH ONE (01:42)
[2021-03-15] MEDS ORDERED: LORazepam 2 MG/ML SDV VIAL IVPUSH ONE (01:59)
[2021-03-15] MEDS ORDERED: LORazepam 2 MG/ML SDV VIAL ONE (02:13)
[2021-03-15] MEDS: INSULIN SLIDING SCALE (NOVOLOG) 1 VIAL SQ SCH ×2 (06:27→12:41)
[2021-03-15] MEDS: LEVOTHYROXINE NA 50 MCG TABLET (FP) PO SCH (06:28)
[2021-03-15 08:54] LABS: HEMATOCRIT 26.9 % (35.4-49); HEMOGLOBIN 9.5 GM/dL (11.7-16.9); MCH 31.9 pg (25.7-33.7); MCHC 35.3 g/dl (32.0-35.9); MEAN CELL VOLUME 90.3 fl (80-96); PLATELET COUNT 199 10^3/uL (134-434); RBC 2.98 M/mm3 (4.00-5.60); RDW 16.5 % (11.9-15.9); WHITE BLOOD COUNT 7.1 K/mm3 (4.0-10.0)
[2021-03-15 09:28] LABS: ALBUMIN 2.4 g/dl (3.4-5.0); BLOOD UREA NITROGEN 80.6 mg/dL (7-18); CALCIUM 8.3 mg/dL (8.5-10.1)
[2021-03-15 09:31] LABS: CREATININE 4.3 mg/dL (0.55-1.3)
[2021-03-15 09:32] LABS: BILIRUBIN,TOTAL 0.8 mg/dL (0.2-1)
[2021-03-15 09:34] LABS: TOT PROT 6.1 g/dl (6.4-8.2)
[2021-03-15] MEDS ORDERED: DEXTROSE 5%-WATER - 50 ML IVPB ONE (11:45)
[2021-03-15] MEDS ORDERED: cefTRIAXone SODIUM 1 GM VIAL ONE (11:45)
[2021-03-15 11:59] VITALS: BP 120/67; PULSE 98; TEMP 98.6
[2021-03-15] MEDS: CEFTRIAXONE 1 GM in DEXTROSE 5%-WATER - 50 ML IVPB SCH (12:02)
[2021-03-15] MEDS: PANTOPRAZOLE 40 MG TABLET PO SCH (12:02)
[2021-03-15] MEDS: ALLOPURINOL 100 MG TABLET (FP) PO SCH (12:02)
[2021-03-15] MEDS: TAMSULOSIN HCL 0.4 MG CAP PO SCH (12:02)
[2021-03-15] MEDS: FUROSEMIDE 40 MG TABLET (FP) PO SCH (12:02)
[2021-03-15] MEDS: amLODIPine BESYLATE 5 MG TABLET (FP) PO SCH (12:02)
[2021-03-15] MEDS: NEBIVOLOL 5 MG TABLET (FP) PO SCH (12:04)
[2021-03-15] MEDS: EZETIMIBE 10 MG TABLET (FP) PO SCH (12:04)
[2021-03-15] MEDS: ENOXAPARIN NA (PORCINE) 30 MG/0.3 ML DISP.SYRIN SQ SCH (12:04)
[2021-03-15] MEDS ORDERED: SODIUM CHLORIDE 0.45% 1,000 ML IV SCH (13:15)
== END 2021-03-15 15:38 | DRG 522 ==
LOC: JER 05:42 → JERBED 09:06 → J6S 21:40
PROVIDERS: ADMIT Family Medicine; ATTEND Internal Medicine
PROC: 0SRR0J9 Replacement of Right Hip Joint, Femoral Surface with Synthetic Substitute, Cemented, Open Approach (ICD-10-PCS; principal; 2021-03-12 07:30)
DX: S72.001A Fracture of unspecified part of neck of right femur, initial encounter for closed fracture (principal); N39.0 Urinary tract infection, site not specified; T83.511A Infection and inflammatory reaction due to indwelling urethral catheter, initial encounter; I13.0 Hypertensive heart and chronic kidney disease with heart failure and stage 1 through stage 4 chronic kidney disease, or unspecified chronic kidney disease; I50.32 Chronic diastolic (congestive) heart failure; N17.9 Acute kidney failure, unspecified; N18.4 Chronic kidney disease, stage 4 (severe); I44.7 Left bundle-branch block, unspecified; N40.0 Benign prostatic hyperplasia without lower urinary tract symptoms; E66.9 Obesity, unspecified; I25.10 Atherosclerotic heart disease of native coronary artery without angina pectoris; Y84.6 Urinary catheterization as the cause of abnormal reaction of the patient, or of later complication, without mention of misadventure at the time of the procedure; W01.0XXA Fall on same level from slipping, tripping and stumbling without subsequent striking against object, initial encounter; Y93.89 Activity, other specified; Y92.009 Unspecified place in unspecified non-institutional (private) residence as the place of occurrence of the external cause; Y99.8 Other external cause status; E03.9 Hypothyroidism, unspecified; Z68.31 Body mass index [BMI] 31.0-31.9, adult; R94.31 Abnormal electrocardiogram [ECG] [EKG]; Z95.2 Presence of prosthetic heart valve; M10.9 Gout, unspecified
CPT/HCPCS: 36415; 70450-TC; 71046-TC-FY; 72125-TC; 73502-TC-RT-FY; 73523-TC-FY; 80048; 80053; 81003; 82570; 82962; 83036; 83735; 83880; 84100; 84156; 84300; 84443; 84540; 85025; 85027; 85610; 85730; 86850; 86900; 86901; 87086; 88305-TC; 88311-TC; 93005; 93010; 94010; 94760; 97116-GP; 97162-GP; 99285-25; C9803; J0131; J1644; U0003; U0005

== ENCOUNTER 2023-01-17 09:07 | Emergency (ER) | payer OTHER ==
[2023-01-17 09:33] VITALS: BP 134/67; PULSE 59; RESP 16; TEMP 98.4; BMI 31.0
[2023-01-17 11:47] LABS: POTASSIUM 5.8 mmol/L (3.5-5.1)
[2023-01-17 11:51] LABS: ALBUMIN 3.8 g/dl (3.4-5.0); BLOOD UREA NITROGEN 69.4 mg/dL (7-18); CALCIUM 8.7 mg/dL (8.5-10.1)
[2023-01-17 11:55] LABS: BILIRUBIN,TOTAL 0.4 mg/dL (0.2-1); TOT PROT 7.7 g/dl (6.4-8.2)
[2023-01-17 11:56] LABS: N-TERMINAL BNP 255.6 pg/ml (5-450)
[2023-01-17 12:30] LABS: HEMATOCRIT 34.8 % (35.4-49); HEMOGLOBIN 11.8 GM/dL (11.7-16.9); MEAN CELL VOLUME 93.9 fl (80-96); MEAN PLT VOLUME 8.6 fl (7.5-11.1); PLATELET COUNT 159 10^3/uL (134-434); RDW 17.2 % (11.9-15.9); WHITE BLOOD COUNT 9.4 K/mm3 (4.0-10.0)
[2023-01-17 12:31] LABS: INR 1.31 (0.83-1.09); PROTHROMBIN TIME (PATIENT) 15.2 SEC (9.7-13.0)
[2023-01-17 12:34] LABS: ACTIVATED PTT 34.4 SECONDS (25.2-36.5)
[2023-01-17] MEDS ORDERED: CLINDAMYCIN HCL 300 MG CAPSULE PO ONE (12:41)
[2023-01-17 12:48] LABS: POTASSIUM 5.6 mmol/L (3.5-5.1)
[2023-01-17 12:51] LABS: ALBUMIN 3.8 g/dl (3.4-5.0); BLOOD UREA NITROGEN 73.3 mg/dL (7-18)
[2023-01-17 12:53] LABS: ANISOCYTOSIS 1+; MACROCYTOSIS 0
[2023-01-17 12:55] LABS: BILIRUBIN,TOTAL 0.4 mg/dL (0.2-1); TOT PROT 7.6 g/dl (6.4-8.2)
[2023-01-17] MEDS ORDERED: CLINDAMYCIN HCL 150 MG CAPSULE (FP) PO ONE (13:15)
[2023-01-17] MEDS ORDERED: CLINDAMYCIN HCL 150 MG CAPSULE (FP) ONE (13:23)
[2023-01-17] MEDS ORDERED: SODIUM ZIRCONIUM CYCLOSILICATE (LOKELMA) 5 GM PACKET PO SCH (13:45)
[2023-01-17] MEDS ORDERED: SODIUM ZIRCONIUM CYCLOSILICATE (LOKELMA) 5 GM PACKET PO ONE (13:50)
[2023-01-17] MEDS ORDERED: SODIUM ZIRCONIUM CYCLOSILICATE (LOKELMA) 10 GM PACKET ONE (14:24)
== END 2023-01-17 15:13 | disposition home or self-care (01) ==
LOC: JER 09:07
DX: R60.9 Edema, unspecified (principal); I12.9 Hypertensive chronic kidney disease with stage 1 through stage 4 chronic kidney disease, or unspecified chronic kidney disease; N18.9 Chronic kidney disease, unspecified; L03.115 Cellulitis of right lower limb
CPT/HCPCS: 36415; 80053; 83880; 85025; 85610; 85730; 93005; 93010; 99285-25

== ENCOUNTER 2023-02-15 15:41 | Emergency (ER) | payer OTHER ==
[2023-02-15 15:48] VITALS: BP 150/65; PULSE 76; RESP 18; TEMP 97.8; BMI 31.3
[2023-02-15 16:57] LABS: BASO % 0.3 % (0-2.0); EOS % 2.6 % (0-4.5); HEMATOCRIT 35.3 % (35.4-49); HEMOGLOBIN 12.2 GM/dL (11.7-16.9); LYMPH % 5.8 % (8-40); MCH 32.1 pg (25.7-33.7); MCHC 34.5 g/dl (32.0-35.9); MEAN CELL VOLUME 93.1 fl (80-96); MEAN PLT VOLUME 8.6 fl (7.5-11.1); NEUT % 86.3 % (42.8-82.8); PLATELET COUNT 170 10^3/uL (134-434); RBC 3.79 M/mm3 (4.00-5.60); RDW 17.2 % (11.9-15.9); WHITE BLOOD COUNT 12.1 K/mm3 (4.0-10.0)
[2023-02-15 17:09] LABS: POTASSIUM 4.5 mmol/L (3.5-5.1)
[2023-02-15 17:11] LABS: CALCIUM 8.5 mg/dL (8.5-10.1)
[2023-02-15 17:12] LABS: BLOOD UREA NITROGEN 73.8 mg/dL (7-18); MAGNESIUM 2.2 mg/dL (1.8-2.4)
[2023-02-15 17:17] LABS: BILIRUBIN,TOTAL 0.4 mg/dL (0.2-1); TOT PROT 7.9 g/dl (6.4-8.2)
[2023-02-15 17:20] LABS: N-TERMINAL BNP 336.5 pg/ml (5-450)
[2023-02-15] MEDS ORDERED: ASPIRIN 81 MG CHEWABLE TABLETS PO ONE (17:40)
[2023-02-15] MEDS ORDERED: CLINDAMYCIN HCL 150 MG CAPSULE (FP) PO ONE (17:43)
[2023-02-15] MEDS ORDERED: CLINDAMYCIN HCL 150 MG CAPSULE (FP) ONE (17:50)
[2023-02-15] MEDS ORDERED: ASPIRIN 81 MG CHEWABLE TABLETS ONE (17:50)
== END 2023-02-15 18:57 | disposition home or self-care (01) ==
LOC: JER 15:41
DX: R07.9 Chest pain, unspecified (principal); I12.9 Hypertensive chronic kidney disease with stage 1 through stage 4 chronic kidney disease, or unspecified chronic kidney disease; N18.9 Chronic kidney disease, unspecified; L03.115 Cellulitis of right lower limb; L03.116 Cellulitis of left lower limb; S81.801D Unspecified open wound, right lower leg, subsequent encounter; S81.802D Unspecified open wound, left lower leg, subsequent encounter; X58.XXXD Exposure to other specified factors, subsequent encounter
CPT/HCPCS: 36415; 71045-TC-FY; 80053; 83735; 83880; 84484; 85025; 93005; 93010; 99285-25

== ENCOUNTER 2023-05-15 19:07 | Inpatient (IN) | payer OTHER ==
[2023-05-15 21:46] LABS: BASO % 0.7 % (0-2.0); EOS % 1.7 % (0-4.5); HEMATOCRIT 37.4 % (35.4-49); HEMOGLOBIN 11.9 GM/dL (11.7-16.9); LYMPH % 6.6 % (8-40); MCH 29.4 pg (25.7-33.7); MCHC 31.9 g/dl (32.0-35.9); MEAN CELL VOLUME 92.3 fl (80-96); MEAN PLT VOLUME 8.4 fl (7.5-11.1); MONO % 9.7 % (3.8-10.2); NEUT % 81.3 % (42.8-82.8); PLATELET COUNT 185 10^3/uL (134-434); RBC 4.06 M/mm3 (4.00-5.60); RDW 18.6 % (11.9-15.9); WHITE BLOOD COUNT 11.8 K/mm3 (4.0-10.0)
[2023-05-15 22:02] LABS: POTASSIUM 5.2 mmol/L (3.5-5.1)
[2023-05-15 22:04] LABS: CALCIUM 8.2 mg/dL (8.5-10.1)
[2023-05-15 22:05] LABS: ALBUMIN 3.3 g/dl (3.4-5.0); BLOOD UREA NITROGEN 51.1 mg/dL (7-18)
[2023-05-15 22:08] LABS: CREATININE 3.4 mg/dL (0.55-1.3)
[2023-05-15 22:09] LABS: TOT PROT 7.6 g/dl (6.4-8.2)
[2023-05-15 22:10] LABS: BILIRUBIN,TOTAL 0.6 mg/dL (0.2-1)
[2023-05-15] MEDS ORDERED: CALCIUM GLUCONATE 10% - 1,000 MG/10 ML VIAL IVPB ONE (22:13)
[2023-05-15] MEDS ORDERED: CALCIUM GLUC IN NACL, ISO-OSM 1 GM/50 ML BAG IVPB ONE (23:57)
[2023-05-15] MEDS ORDERED: SODIUM ZIRCONIUM CYCLOSILICATE (LOKELMA) 10 GM PACKET ONE (23:57)
[2023-05-16] MEDS ORDERED: SODIUM ZIRCONIUM CYCLOSILICATE (LOKELMA) 5 GM PACKET PO ONE (00:07)
[2023-05-16] MEDS ORDERED: PANTOPRAZOLE SODIUM 40 MG VIAL IVPUSH SCH (03:07)
[2023-05-16] MEDS ORDERED: SODIUM CHLORIDE 1,000 ML IV SCH (03:15)
[2023-05-16 04:53] LABS: EPI CELLS 0 /uL (0-25.1); HYALINE CASTS 0 /uL (0-3.1); PH,URINE 5.5 (5.0-8.0); URINE APPEARANCE CLEAR; URINE BACTERIA >9,000 /uL (0-1359); URINE BILIRUBIN NEGATIVE (NEGATIVE); URINE COLOR YELLOW; URINE GLUCOSE (UA) NEGATIVE (NEGATIVE); URINE KETONE NEGATIVE (NEGATIVE); URINE LEUK ESTERASE 2+ (NEGATIVE); URINE NITRITE POSITIVE (NEGATIVE); URINE PROTEIN 1+ (NEGATIVE); URINE RBC 6 /uL (0-23.9); URINE UROBILINOGEN 0.2 mg/dL (0.2-1.0); URINE WBC 166 /uL (0-25.8)
[2023-05-16] MEDS: GABAPENTIN 100 MG CAPSULE PO SCH ×3 (09:01→22:17)
[2023-05-16] MEDS: CEFTRIAXONE 1 GM in DEXTROSE 5%-WATER - 50 ML IVPB SCH (09:02)
[2023-05-16] MEDS: LEVOTHYROXINE NA 50 MCG TABLET (FP) PO SCH (09:02)
[2023-05-16] MEDS: TAMSULOSIN HCL 0.4 MG CAP PO SCH (09:03)
[2023-05-16] MEDS: FUROSEMIDE 40 MG TABLET (FP) PO SCH (09:04)
[2023-05-16] MEDS: APIXABAN 2.5 MG TABLET PO SCH ×2 (09:04→22:17)
[2023-05-16] MEDS: EZETIMIBE 10 MG TABLET (FP) PO SCH (09:04)
[2023-05-16] MEDS: ALLOPURINOL 100 MG TABLET (FP) PO SCH (09:05)
[2023-05-16] MEDS: PANTOPRAZOLE 40 MG TABLET PO SCH (09:05)
[2023-05-16] MEDS: NEBIVOLOL 5 MG TABLET (FP) PO SCH (09:08)
[2023-05-16] MEDS: OMEGA-3 ACID ETHYL ESTERS (FATTY-ACIDS) 1 GM CAPSULE (FP) PO SCH (09:08)
[2023-05-16] MEDS ORDERED: amLODIPine BESYLATE 2.5 MG TABLET (FP) PO SCH (10:00)
[2023-05-16] MEDS ORDERED: SODIUM ZIRCONIUM CYCLOSILICATE (LOKELMA) 5 GM PACKET PO SCH (10:00)
[2023-05-16] MEDS ORDERED: PATIENT'S OWN MEDICATION (NON-FORMULARY) (Silodosin [Rapaflo] 8 MG Capsule) PO SCH (10:00)
[2023-05-16 11:02] LABS: BASO % 0.3 % (0-2.0); EOS % 2.7 % (0-4.5); HEMATOCRIT 37.1 % (35.4-49); HEMOGLOBIN 12.1 GM/dL (11.7-16.9); LYMPH % 6.4 % (8-40); MCH 30.3 pg (25.7-33.7); MCHC 32.5 g/dl (32.0-35.9); MEAN CELL VOLUME 93.2 fl (80-96); MEAN PLT VOLUME 8.7 fl (7.5-11.1); MONO % 8.9 % (3.8-10.2); NEUT % 81.7 % (42.8-82.8); PLATELET COUNT 159 10^3/uL (134-434); RBC 3.99 M/mm3 (4.00-5.60); RDW 18.3 % (11.9-15.9)
[2023-05-16] MEDS: SODIUM ZIRCONIUM CYCLOSILICATE (LOKELMA) 5 GM PACKET PO SCH (12:16)
[2023-05-16] MEDS: QUEtiapine FUMARATE 25 MG TABLET PO SCH (22:17)
[2023-05-16] MEDS: ROSUVASTATIN CA 5 MG TABLET PO SCH (22:18)
[2023-05-17] MEDS: GABAPENTIN 100 MG CAPSULE PO SCH ×3 (06:11→21:17)
[2023-05-17] MEDS: LEVOTHYROXINE NA 50 MCG TABLET (FP) PO SCH (06:12)
[2023-05-17] MEDS: amLODIPine BESYLATE 5 MG TABLET (FP) PO SCH (09:48)
[2023-05-17] MEDS: TAMSULOSIN HCL 0.4 MG CAP PO SCH (09:48)
[2023-05-17] MEDS: ALLOPURINOL 100 MG TABLET (FP) PO SCH (09:48)
[2023-05-17] MEDS: FUROSEMIDE 40 MG TABLET (FP) PO SCH (09:48)
[2023-05-17] MEDS: CEFTRIAXONE 1 GM in DEXTROSE 5%-WATER - 50 ML IVPB SCH (09:48)
[2023-05-17] MEDS: EZETIMIBE 10 MG TABLET (FP) PO SCH (09:48)
[2023-05-17] MEDS: OMEGA-3 ACID ETHYL ESTERS (FATTY-ACIDS) 1 GM CAPSULE (FP) PO SCH (09:48)
[2023-05-17] MEDS: APIXABAN 2.5 MG TABLET PO SCH ×2 (09:48→21:16)
[2023-05-17] MEDS: PANTOPRAZOLE 40 MG TABLET PO SCH (09:49)
[2023-05-17] MEDS: SODIUM ZIRCONIUM CYCLOSILICATE (LOKELMA) 5 GM PACKET PO SCH (11:48)
[2023-05-17] MEDS ORDERED: SODIUM ZIRCONIUM CYCLOSILICATE (LOKELMA) 5 GM PACKET PO SCH (12:09)
[2023-05-17] MEDS: NEBIVOLOL 5 MG TABLET (FP) PO SCH (12:11)
[2023-05-17 16:26] LABS: BASO % 0.5 % (0-2.0); EOS % 3.6 % (0-4.5); HEMATOCRIT 33.8 % (35.4-49); LYMPH % 5.1 % (8-40); MCH 29.7 pg (25.7-33.7); MCHC 32.5 g/dl (32.0-35.9); MEAN CELL VOLUME 91.4 fl (80-96); MEAN PLT VOLUME 8.6 fl (7.5-11.1); MONO % 10.6 % (3.8-10.2); NEUT % 80.2 % (42.8-82.8); PLATELET COUNT 203 10^3/uL (134-434); RDW 18.8 % (11.9-15.9); WHITE BLOOD COUNT 11.1 K/mm3 (4.0-10.0)
[2023-05-17 16:57] LABS: POTASSIUM 3.9 mmol/L (3.5-5.1)
[2023-05-17 17:00] LABS: BLOOD UREA NITROGEN 55.4 mg/dL (7-18); CALCIUM 8.3 mg/dL (8.5-10.1)
[2023-05-17 17:01] LABS: MAGNESIUM 2.1 mg/dL (1.8-2.4)
[2023-05-17 17:03] LABS: CREATININE 3.5 mg/dL (0.55-1.3); PHOSPHOROUS 3.6 mg/dL (2.5-4.9)
[2023-05-17 17:05] LABS: BILIRUBIN,TOTAL 0.4 mg/dL (0.2-1); TOT PROT 7.3 g/dl (6.4-8.2)
[2023-05-17] MEDS: QUEtiapine FUMARATE 25 MG TABLET PO SCH (21:16)
[2023-05-17] MEDS: ROSUVASTATIN CA 5 MG TABLET PO SCH (21:17)
[2023-05-17] MEDS ORDERED: ACETAMINOPHEN 1000 MG/100 ML BAG IVPB ONE (21:43)
[2023-05-18] MEDS: GABAPENTIN 100 MG CAPSULE PO SCH ×3 (06:05→20:59)
[2023-05-18] MEDS: LEVOTHYROXINE NA 50 MCG TABLET (FP) PO SCH (06:05)
[2023-05-18 09:59] LABS: BASO % 0.5 % (0-2.0); EOS % 6.9 % (0-4.5); HEMATOCRIT 32.2 % (35.4-49); HEMOGLOBIN 10.5 GM/dL (11.7-16.9); LYMPH % 5.7 % (8-40); MCHC 32.6 g/dl (32.0-35.9); MEAN PLT VOLUME 8.6 fl (7.5-11.1); MONO % 8.8 % (3.8-10.2); NEUT % 78.1 % (42.8-82.8); PLATELET COUNT 196 10^3/uL (134-434); WHITE BLOOD COUNT 7.9 K/mm3 (4.0-10.0)
[2023-05-18] MEDS: ALLOPURINOL 100 MG TABLET (FP) PO SCH (10:24)
[2023-05-18] MEDS: APIXABAN 2.5 MG TABLET PO SCH ×2 (10:24→21:03)
[2023-05-18] MEDS: EZETIMIBE 10 MG TABLET (FP) PO SCH (10:24)
[2023-05-18] MEDS: TAMSULOSIN HCL 0.4 MG CAP PO SCH (10:24)
[2023-05-18] MEDS: FUROSEMIDE 40 MG TABLET (FP) PO SCH (10:24)
[2023-05-18] MEDS: amLODIPine BESYLATE 5 MG TABLET (FP) PO SCH (10:25)
[2023-05-18] MEDS: PANTOPRAZOLE 40 MG TABLET PO SCH (10:25)
[2023-05-18] MEDS: OMEGA-3 ACID ETHYL ESTERS (FATTY-ACIDS) 1 GM CAPSULE (FP) PO SCH (10:25)
[2023-05-18] MEDS: NEBIVOLOL 5 MG TABLET (FP) PO SCH (10:26)
[2023-05-18 10:43] LABS: POTASSIUM 4.1 mmol/L (3.5-5.1)
[2023-05-18 10:49] LABS: CALCIUM 8.9 mg/dL (8.5-10.1)
[2023-05-18 10:50] LABS: ALBUMIN 2.8 g/dl (3.4-5.0); BLOOD UREA NITROGEN 60.2 mg/dL (7-18)
[2023-05-18 10:53] LABS: CREATININE 3.4 mg/dL (0.55-1.3); TOT PROT 6.7 g/dl (6.4-8.2)
[2023-05-18 10:55] LABS: BILIRUBIN,TOTAL 0.8 mg/dL (0.2-1)
[2023-05-18] MEDS: CEFTRIAXONE 1 GM in DEXTROSE 5%-WATER - 50 ML IVPB SCH (12:21)
[2023-05-18] MEDS ORDERED: SODIUM ZIRCONIUM CYCLOSILICATE (LOKELMA) 5 GM PACKET PO SCH (13:28)
[2023-05-18] MEDS: QUEtiapine FUMARATE 25 MG TABLET PO SCH (20:59)
[2023-05-18] MEDS: ROSUVASTATIN CA 5 MG TABLET PO SCH (21:00)
[2023-05-19] MEDS: LEVOTHYROXINE NA 50 MCG TABLET (FP) PO SCH (06:09)
[2023-05-19] MEDS: GABAPENTIN 100 MG CAPSULE PO SCH ×3 (06:09→21:51)
[2023-05-19 10:30] LABS: HEMATOCRIT 31.1 % (35.4-49); HEMOGLOBIN 10.3 GM/dL (11.7-16.9); MCH 30.4 pg (25.7-33.7); MCHC 33.2 g/dl (32.0-35.9); MEAN CELL VOLUME 91.7 fl (80-96); MEAN PLT VOLUME 8.5 fl (7.5-11.1); PLATELET COUNT 225 10^3/uL (134-434); RBC 3.39 M/mm3 (4.00-5.60); RDW 18.1 % (11.9-15.9); WHITE BLOOD COUNT 7.9 K/mm3 (4.0-10.0)
[2023-05-19 10:36] LABS: POTASSIUM 3.7 mmol/L (3.5-5.1)
[2023-05-19 10:38] LABS: CALCIUM 8.3 mg/dL (8.5-10.1)
[2023-05-19 10:39] LABS: ALBUMIN 2.6 g/dl (3.4-5.0); BLOOD UREA NITROGEN 67.8 mg/dL (7-18)
[2023-05-19 10:42] LABS: CREATININE 3.3 mg/dL (0.55-1.3)
[2023-05-19 10:43] LABS: BILIRUBIN,TOTAL 0.2 mg/dL (0.2-1)
[2023-05-19 10:44] LABS: TOT PROT 6.7 g/dl (6.4-8.2)
[2023-05-19] MEDS: CEFTRIAXONE 1 GM in DEXTROSE 5%-WATER - 50 ML IVPB SCH (10:50)
[2023-05-19] MEDS: TAMSULOSIN HCL 0.4 MG CAP PO SCH (10:51)
[2023-05-19] MEDS: APIXABAN 2.5 MG TABLET PO SCH ×2 (10:51→21:52)
[2023-05-19] MEDS: ALLOPURINOL 100 MG TABLET (FP) PO SCH (10:51)
[2023-05-19] MEDS: PANTOPRAZOLE 40 MG TABLET PO SCH (10:51)
[2023-05-19] MEDS: OMEGA-3 ACID ETHYL ESTERS (FATTY-ACIDS) 1 GM CAPSULE (FP) PO SCH (10:52)
[2023-05-19] MEDS: amLODIPine BESYLATE 5 MG TABLET (FP) PO SCH (11:00)
[2023-05-19] MEDS: FUROSEMIDE 40 MG TABLET (FP) PO SCH (11:00)
[2023-05-19] MEDS: EZETIMIBE 10 MG TABLET (FP) PO SCH (11:00)
[2023-05-19] MEDS: NEBIVOLOL 5 MG TABLET (FP) PO SCH (11:03)
[2023-05-19 11:16] LABS: ANISOCYTOSIS 1+; MACROCYTOSIS 0
[2023-05-19] MEDS: GLYCOPYRROLATE 1 MG TABLET PO SCH ×2 (13:58→21:51)
[2023-05-19 17:09] LABS: TOTAL PROTEIN, URINE 40.7 mg/dL (Not Estab.)
[2023-05-19] MEDS: QUEtiapine FUMARATE 25 MG TABLET PO SCH (21:52)
[2023-05-19] MEDS: ROSUVASTATIN CA 5 MG TABLET PO SCH (21:52)
[2023-05-20] MEDS: GABAPENTIN 100 MG CAPSULE PO SCH ×3 (06:09→23:58)
[2023-05-20] MEDS: GLYCOPYRROLATE 1 MG TABLET PO SCH ×3 (06:10→23:59)
[2023-05-20] MEDS: LEVOTHYROXINE NA 50 MCG TABLET (FP) PO SCH (06:10)
[2023-05-20] MEDS: CEFTRIAXONE 1 GM in DEXTROSE 5%-WATER - 50 ML IVPB SCH (10:58)
[2023-05-20] MEDS: APIXABAN 2.5 MG TABLET PO SCH ×2 (10:59→23:58)
[2023-05-20] MEDS: MEMANTINE HCL 5 MG TABLET (UD) PO SCH ×2 (10:59→23:58)
[2023-05-20] MEDS: ALLOPURINOL 100 MG TABLET (FP) PO SCH (10:59)
[2023-05-20] MEDS: TAMSULOSIN HCL 0.4 MG CAP PO SCH (10:59)
[2023-05-20] MEDS: OMEGA-3 ACID ETHYL ESTERS (FATTY-ACIDS) 1 GM CAPSULE (FP) PO SCH (10:59)
[2023-05-20] MEDS: PANTOPRAZOLE 40 MG TABLET PO SCH (10:59)
[2023-05-20] MEDS: EZETIMIBE 10 MG TABLET (FP) PO SCH (12:05)
[2023-05-20] MEDS: FUROSEMIDE 40 MG TABLET (FP) PO SCH (12:07)
[2023-05-20] MEDS: NEBIVOLOL 5 MG TABLET (FP) PO SCH (12:07)
[2023-05-20] MEDS: amLODIPine BESYLATE 5 MG TABLET (FP) PO SCH (12:08)
[2023-05-20] MEDS: QUEtiapine FUMARATE 25 MG TABLET PO SCH (23:59)
[2023-05-20] MEDS: ROSUVASTATIN CA 5 MG TABLET PO SCH (23:59)
[2023-05-21] MEDS: GABAPENTIN 100 MG CAPSULE PO SCH ×3 (06:12→23:04)
[2023-05-21] MEDS: GLYCOPYRROLATE 1 MG TABLET PO SCH ×3 (06:12→23:05)
[2023-05-21] MEDS: LEVOTHYROXINE NA 50 MCG TABLET (FP) PO SCH (07:09)
[2023-05-21] MEDS: CEFTRIAXONE 1 GM in DEXTROSE 5%-WATER - 50 ML IVPB SCH (09:50)
[2023-05-21] MEDS: OMEGA-3 ACID ETHYL ESTERS (FATTY-ACIDS) 1 GM CAPSULE (FP) PO SCH (09:50)
[2023-05-21] MEDS: TAMSULOSIN HCL 0.4 MG CAP PO SCH (09:50)
[2023-05-21] MEDS: ALLOPURINOL 100 MG TABLET (FP) PO SCH (09:51)
[2023-05-21] MEDS: amLODIPine BESYLATE 5 MG TABLET (FP) PO SCH (09:51)
[2023-05-21] MEDS: PANTOPRAZOLE 40 MG TABLET PO SCH (09:51)
[2023-05-21] MEDS: APIXABAN 2.5 MG TABLET PO SCH ×2 (09:51→23:04)
[2023-05-21] MEDS: MEMANTINE HCL 5 MG TABLET (UD) PO SCH ×2 (09:51→23:04)
[2023-05-21] MEDS: EZETIMIBE 10 MG TABLET (FP) PO SCH (09:51)
[2023-05-21] MEDS: FUROSEMIDE 40 MG TABLET (FP) PO SCH (09:52)
[2023-05-21 11:17] LABS: HEMATOCRIT 32.8 % (35.4-49); HEMOGLOBIN 10.6 GM/dL (11.7-16.9); MCH 29.6 pg (25.7-33.7); MCHC 32.3 g/dl (32.0-35.9); MEAN CELL VOLUME 91.5 fl (80-96); PLATELET COUNT 245 10^3/uL (134-434); RBC 3.59 M/mm3 (4.00-5.60); RDW 18.2 % (11.9-15.9); WHITE BLOOD COUNT 8.5 K/mm3 (4.0-10.0)
[2023-05-21 11:55] LABS: CALCIUM 8.7 mg/dL (8.5-10.1)
[2023-05-21 11:56] LABS: ALBUMIN 2.7 g/dl (3.4-5.0); BLOOD UREA NITROGEN 61.5 mg/dL (7-18); MAGNESIUM 1.8 mg/dL (1.8-2.4)
[2023-05-21 11:59] LABS: CREATININE 2.5 mg/dL (0.55-1.3); PHOSPHOROUS 3.1 mg/dL (2.5-4.9)
[2023-05-21 12:00] LABS: BILIRUBIN,TOTAL 0.2 mg/dL (0.2-1); TOT PROT 6.9 g/dl (6.4-8.2)
[2023-05-21] MEDS: NEBIVOLOL 5 MG TABLET (FP) PO SCH (12:21)
[2023-05-21] MEDS: ALBUTEROL SO4 2.5/IPRATROPIUM 0.5 INH SOL 3 ML VIAL.NEB. NEB SCH (20:57)
[2023-05-21] MEDS: QUEtiapine FUMARATE 25 MG TABLET PO SCH (23:04)
[2023-05-21] MEDS: ROSUVASTATIN CA 5 MG TABLET PO SCH (23:04)
[2023-05-22] MEDS: GLYCOPYRROLATE 1 MG TABLET PO SCH ×3 (06:16→22:40)
[2023-05-22] MEDS: GABAPENTIN 100 MG CAPSULE PO SCH ×3 (06:16→22:39)
[2023-05-22] MEDS: ALBUTEROL SO4 2.5/IPRATROPIUM 0.5 INH SOL 3 ML VIAL.NEB. NEB SCH ×3 (08:10→19:40)
[2023-05-22] MEDS: TAMSULOSIN HCL 0.4 MG CAP PO SCH (08:43)
[2023-05-22] MEDS: AMOX TR/POT CLAV 500MG/125MG TABLETS (FP) PO SCH ×2 (08:43→17:24)
[2023-05-22] MEDS: OMEGA-3 ACID ETHYL ESTERS (FATTY-ACIDS) 1 GM CAPSULE (FP) PO SCH (10:07)
[2023-05-22] MEDS: FUROSEMIDE 40 MG TABLET (FP) PO SCH (10:07)
[2023-05-22] MEDS: APIXABAN 2.5 MG TABLET PO SCH ×2 (10:07→22:39)
[2023-05-22] MEDS: EZETIMIBE 10 MG TABLET (FP) PO SCH (10:08)
[2023-05-22] MEDS: amLODIPine BESYLATE 5 MG TABLET (FP) PO SCH (10:08)
[2023-05-22] MEDS: ALLOPURINOL 100 MG TABLET (FP) PO SCH (10:08)
[2023-05-22] MEDS: MEMANTINE HCL 5 MG TABLET (UD) PO SCH ×2 (10:08→22:39)
[2023-05-22] MEDS: PANTOPRAZOLE 40 MG TABLET PO SCH (10:08)
[2023-05-22] MEDS: NEBIVOLOL 5 MG TABLET (FP) PO SCH (10:08)
[2023-05-22 12:53] LABS: POTASSIUM 3.6 mmol/L (3.5-5.1)
[2023-05-22 12:59] LABS: ALBUMIN 2.6 g/dl (3.4-5.0); BLOOD UREA NITROGEN 63.8 mg/dL (7-18); CALCIUM 8.6 mg/dL (8.5-10.1)
[2023-05-22 13:02] LABS: CREATININE 2.7 mg/dL (0.55-1.3)
[2023-05-22 13:04] LABS: BILIRUBIN,TOTAL 0.2 mg/dL (0.2-1); TOT PROT 6.6 g/dl (6.4-8.2)
[2023-05-22] MEDS: INSULIN ASPART SLIDING SCALE (NOVOLOG) 1 VIAL SQ SCH ×2 (17:27→22:48)
[2023-05-22] MEDS: ROSUVASTATIN CA 5 MG TABLET PO SCH (22:39)
[2023-05-22] MEDS: QUEtiapine FUMARATE 25 MG TABLET PO SCH (22:39)
[2023-05-23] MEDS: GABAPENTIN 100 MG CAPSULE PO SCH ×3 (06:19→22:16)
[2023-05-23] MEDS: GLYCOPYRROLATE 1 MG TABLET PO SCH ×2 (06:19→13:47)
[2023-05-23] MEDS: LEVOTHYROXINE NA 50 MCG TABLET (FP) PO SCH (06:19)
[2023-05-23] MEDS: INSULIN ASPART SLIDING SCALE (NOVOLOG) 1 VIAL SQ SCH ×4 (06:22→22:32)
[2023-05-23] MEDS: ALBUTEROL SO4 2.5/IPRATROPIUM 0.5 INH SOL 3 ML VIAL.NEB. NEB SCH ×3 (07:45→21:01)
[2023-05-23] MEDS: TAMSULOSIN HCL 0.4 MG CAP PO SCH (08:43)
[2023-05-23] MEDS: AMOX TR/POT CLAV 500MG/125MG TABLETS (FP) PO SCH ×2 (08:43→18:01)
[2023-05-23] MEDS: FUROSEMIDE 40 MG TABLET (FP) PO SCH (09:53)
[2023-05-23] MEDS: MEMANTINE HCL 5 MG TABLET (UD) PO SCH ×2 (09:54→22:16)
[2023-05-23] MEDS: EZETIMIBE 10 MG TABLET (FP) PO SCH (09:54)
[2023-05-23] MEDS: OMEGA-3 ACID ETHYL ESTERS (FATTY-ACIDS) 1 GM CAPSULE (FP) PO SCH (09:54)
[2023-05-23] MEDS: amLODIPine BESYLATE 5 MG TABLET (FP) PO SCH (09:54)
[2023-05-23] MEDS: ALLOPURINOL 100 MG TABLET (FP) PO SCH (09:54)
[2023-05-23] MEDS: APIXABAN 2.5 MG TABLET PO SCH ×2 (09:54→22:15)
[2023-05-23] MEDS: PANTOPRAZOLE 40 MG TABLET PO SCH (09:55)
[2023-05-23] MEDS: NEBIVOLOL 5 MG TABLET (FP) PO SCH (09:55)
[2023-05-23 12:32] VITALS: RESP 18
[2023-05-23] MEDS: ROSUVASTATIN CA 5 MG TABLET PO SCH (22:15)
[2023-05-23] MEDS: POLYETHYLENE GLYCOL (HEALTHYLAX) 3350 17 GM PACKET PO SCH (22:15)
[2023-05-23] MEDS: SENNOSIDES 8.6MG TABLET (FP) PO SCH (22:16)
[2023-05-23] MEDS: QUEtiapine FUMARATE 25 MG TABLET PO SCH (22:16)
[2023-05-24] MEDS: GLYCOPYRROLATE 1 MG TABLET PO SCH ×4 (00:14→21:35)
[2023-05-24] MEDS: GABAPENTIN 100 MG CAPSULE PO SCH ×3 (05:31→21:33)
[2023-05-24] MEDS: INSULIN ASPART SLIDING SCALE (NOVOLOG) 1 VIAL SQ SCH ×4 (06:27→21:41)
[2023-05-24] MEDS: LEVOTHYROXINE NA 50 MCG TABLET (FP) PO SCH (06:27)
[2023-05-24] MEDS: ALBUTEROL SO4 2.5/IPRATROPIUM 0.5 INH SOL 3 ML VIAL.NEB. NEB SCH ×3 (07:30→19:56)
[2023-05-24] MEDS ORDERED: BISACODYL 10 MG SUPP.RECT PR ONE (08:35)
[2023-05-24] MEDS: TAMSULOSIN HCL 0.4 MG CAP PO SCH (08:49)
[2023-05-24] MEDS: AMOX TR/POT CLAV 500MG/125MG TABLETS (FP) PO SCH ×2 (08:49→17:42)
[2023-05-24] MEDS: MEMANTINE HCL 5 MG TABLET (UD) PO SCH ×2 (09:54→21:33)
[2023-05-24] MEDS: FUROSEMIDE 40 MG TABLET (FP) PO SCH (09:54)
[2023-05-24] MEDS: APIXABAN 2.5 MG TABLET PO SCH ×2 (09:54→21:33)
[2023-05-24] MEDS: PANTOPRAZOLE 40 MG TABLET PO SCH (09:54)
[2023-05-24] MEDS: OMEGA-3 ACID ETHYL ESTERS (FATTY-ACIDS) 1 GM CAPSULE (FP) PO SCH (09:54)
[2023-05-24] MEDS: EZETIMIBE 10 MG TABLET (FP) PO SCH (09:54)
[2023-05-24] MEDS: ALLOPURINOL 100 MG TABLET (FP) PO SCH (09:55)
[2023-05-24] MEDS: amLODIPine BESYLATE 5 MG TABLET (FP) PO SCH (09:55)
[2023-05-24] MEDS: POLYETHYLENE GLYCOL (HEALTHYLAX) 3350 17 GM PACKET PO SCH ×2 (09:55→21:33)
[2023-05-24] MEDS: NEBIVOLOL 5 MG TABLET (FP) PO SCH (09:56)
[2023-05-24 14:07] VITALS: BMI 32.1
[2023-05-24] MEDS: SENNOSIDES 8.6MG TABLET (FP) PO SCH (21:32)
[2023-05-24] MEDS: ROSUVASTATIN CA 5 MG TABLET PO SCH (21:33)
[2023-05-24] MEDS: QUEtiapine FUMARATE 25 MG TABLET PO SCH (21:33)
[2023-05-25] MEDS: GABAPENTIN 100 MG CAPSULE PO SCH (05:36)
[2023-05-25] MEDS: GLYCOPYRROLATE 1 MG TABLET PO SCH (05:36)
[2023-05-25] MEDS: INSULIN ASPART SLIDING SCALE (NOVOLOG) 1 VIAL SQ SCH ×2 (06:08→11:49)
[2023-05-25] MEDS: LEVOTHYROXINE NA 50 MCG TABLET (FP) PO SCH (06:08)
[2023-05-25] MEDS ORDERED: BISACODYL 10 MG SUPP.RECT PR PRN (07:31)
[2023-05-25] MEDS: ALBUTEROL SO4 2.5/IPRATROPIUM 0.5 INH SOL 3 ML VIAL.NEB. NEB SCH (08:05)
[2023-05-25] MEDS: MEMANTINE HCL 5 MG TABLET (UD) PO SCH (09:06)
[2023-05-25] MEDS: POLYETHYLENE GLYCOL (HEALTHYLAX) 3350 17 GM PACKET PO SCH (09:06)
[2023-05-25] MEDS: AMOX TR/POT CLAV 500MG/125MG TABLETS (FP) PO SCH (09:06)
[2023-05-25] MEDS: ALLOPURINOL 100 MG TABLET (FP) PO SCH (09:06)
[2023-05-25] MEDS: TAMSULOSIN HCL 0.4 MG CAP PO SCH (09:06)
[2023-05-25] MEDS: OMEGA-3 ACID ETHYL ESTERS (FATTY-ACIDS) 1 GM CAPSULE (FP) PO SCH (09:06)
[2023-05-25] MEDS: PANTOPRAZOLE 40 MG TABLET PO SCH (09:06)
[2023-05-25] MEDS: APIXABAN 2.5 MG TABLET PO SCH (09:06)
[2023-05-25] MEDS ORDERED: LACTULOSE 20 GM/30 ML UDC (FOR ORAL USE ONLY) PO SCH (10:00)
[2023-05-25 11:21] VITALS: BP 118/66; PULSE 83; TEMP 98.3
[2023-05-25] MEDS: EZETIMIBE 10 MG TABLET (FP) PO SCH (11:49)
[2023-05-25] MEDS: amLODIPine BESYLATE 5 MG TABLET (FP) PO SCH (11:49)
[2023-05-25] MEDS: FUROSEMIDE 40 MG TABLET (FP) PO SCH (11:49)
[2023-05-25] MEDS: NEBIVOLOL 5 MG TABLET (FP) PO SCH (11:49)
[2023-05-25 11:55] LABS: HEMATOCRIT 32.9 % (35.4-49); HEMOGLOBIN 10.8 GM/dL (11.7-16.9); MCH 29.9 pg (25.7-33.7); MEAN CELL VOLUME 90.8 fl (80-96); MEAN PLT VOLUME 7.5 fl (7.5-11.1); PLATELET COUNT 285 10^3/uL (134-434); RBC 3.62 M/mm3 (4.00-5.60); RDW 18.2 % (11.9-15.9); WHITE BLOOD COUNT 8.6 K/mm3 (4.0-10.0)
[2023-05-25 13:34] LABS: BLOOD UREA NITROGEN 62.5 mg/dL (7-18); CALCIUM 8.3 mg/dL (8.5-10.1); CREATININE 2.6 mg/dL (0.55-1.3); MAGNESIUM 2.1 mg/dL (1.8-2.4); PHOSPHOROUS 3.7 mg/dL (2.5-4.9); POTASSIUM 4.2 mmol/L (3.5-5.1)
== END 2023-05-25 02:10 | DRG 698 ==
LOC: JER 19:07 → JERBED 21:34 → J5S 05-16 05:29 → OBSVTOIN 05-18 09:40
PROVIDERS: ADMIT Internal Medicine; ATTEND Internal Medicine
DX: T83.511A Infection and inflammatory reaction due to indwelling urethral catheter, initial encounter (principal); G93.41 Metabolic encephalopathy; L97.909 Non-pressure chronic ulcer of unspecified part of unspecified lower leg with unspecified severity; J98.11 Atelectasis; Y83.9 Surgical procedure, unspecified as the cause of abnormal reaction of the patient, or of later complication, without mention of misadventure at the time of the procedure; N39.0 Urinary tract infection, site not specified; E03.9 Hypothyroidism, unspecified; F03.90 Unspecified dementia, unspecified severity, without behavioral disturbance, psychotic disturbance, mood disturbance, and anxiety; I12.9 Hypertensive chronic kidney disease with stage 1 through stage 4 chronic kidney disease, or unspecified chronic kidney disease; Z95.2 Presence of prosthetic heart valve; I25.10 Atherosclerotic heart disease of native coronary artery without angina pectoris; E78.5 Hyperlipidemia, unspecified; E87.5 Hyperkalemia; G89.29 Other chronic pain; N40.1 Benign prostatic hyperplasia with lower urinary tract symptoms; I87.2 Venous insufficiency (chronic) (peripheral); G62.9 Polyneuropathy, unspecified; K59.00 Constipation, unspecified; R31.9 Hematuria, unspecified; B96.1 Klebsiella pneumoniae [K. pneumoniae] as the cause of diseases classified elsewhere; N18.32 Chronic kidney disease, stage 3b
CPT/HCPCS: 0241U-QW; 36415; 70450-TC; 70551-TC; 71045-TC-FY; 72170-TC-FY; 76775-TC; 80048; 80053; 81003; 82607; 82746; 82962; 83036; 83735; 83825; 84100; 84155; 84156; 84157; 84165; 84630; 85025; 85027; 86140; 87086; 87186; 87635; 93005; 93010; 94640; 94761; 97116-GP; 99285-25; G0378